=== PATIENT | male | born 1950 | race Caucasian/White ===

== ENCOUNTER 2019-04-04 21:44 | Emergency (ER) | payer BC, MEDICARE ==
--- NOTE | 2019-04-04 22:04 | ED ---
Syncope HPI - General Stated Complaint: Afib,syncope Time Seen by Provider: 04/04/19 21:48 - History of Present Illness Initial Comments: This patient is a 68-year-old man who presents to be evaluated after syncopal episode. The patient had been at a restaurant, approximately half hour ago. He states that he was feeling funny so he got up to use the bathroom and then noticed that he was very lightheaded. Patient's was walking with him and noticed that he was becoming unsteady, so she helped to ease him down against a wall. He did not have a fall or any trauma but he did pass out. He reportedly was unconscious for about 30 seconds. There was no noted seizure activity, though the patient did have urinary incontinence. The patient denies experiencing any palpitations, chest pain, dyspnea or diaphoresis. No nausea or vomiting. There was no postictal type period. MD Complaint: loss of consciousness, felt faint Onset/Timin -: minutes(s) Prodromal Symptoms: lightheaded Duration of Episode: 30 -: second(s) Witnessed: yes - by bystander Injuries Sustained Associated with Event: None Current Symptoms: back to baseline Context: standing up Treatments Prior to Arrival: none - Related Data Home Medications Medication Instructions Recorded Confirmed Aspirin 81 mg PO DAILY 02/10/14 02/25/14 Atorvastatin Calcium [Lipitor] 10 mg PO DAILY 02/10/14 02/25/14 Metoprolol Tartrate 25 mg PO BID 02/10/14 02/25/14 Pramipexole [Mirapex] 0.25 mg PO HS 02/10/14 02/25/14 traZODone HCL [Desyrel] 100 mg PO HS 02/10/14 02/25/14 Amoxicillin 875 mg PO Q12HR 02/25/14 02/25/14 Previous Rx's Medication Instructions Recorded HYDROcodone/APAP 7.5-325MG [[place] 1 - 2 each PO Q6HR PRN #60 tab 02/11/14 7.5] Allergies Allergy/AdvReac Type Severity Reaction Status Date / Time No Known Allergies Allergy Verified 04/04/19 22:06 Review of Systems ROS Statement: Those systems with pertinent positive or pertinent negative responses have been documented in the HPI. ROS Other: All systems not noted in ROS Statement are negative. Constitutional: Denies: fever, chills, weakness Eyes: Denies: vision change Respiratory: Denies: cough, dyspnea Cardiovascular: Reports: syncope. Denies: chest pain, palpitations, edema Gastrointestinal: Denies: abdominal pain, nausea, vomiting, diarrhea Genitourinary: Denies: dysuria, hematuria Musculoskeletal: Denies: back pain Skin: Denies: rash Neurological: Denies: headache, weakness, numbness Past Medical History Past Medical History: Atrial Fibrillation, Cancer, Hyperlipidemia, Hypertension Additional Past Medical History / Comment(s): arthritis, skin cancer, one episode of A-Fib, s/o reports seizure one other time about 10 years ago History of Any Multi-Drug Resistant Organisms: None Reported Past Surgical History: Orthopedic Surgery Additional Past Surgical History / Comment(s): vasectomy, removal of skin cancer from face,rotator cuff repair feb 11 Past Anesthesia/Blood Transfusion Reactions: No Reported Reaction Past Psychological History: No Psychological Hx Reported Smoking Status: Never smoker Past Alcohol Use History: None Reported Past Drug Use History: None Reported - Past Family History Father Family Medical History: Cancer Mother Family Medical History: Cancer General Exam General appearance: alert, in no apparent distress Head exam: Present: atraumatic, normocephalic Eye exam: Present: normal appearance. Absent: scleral icterus, conjunctival injection ENT exam: Present: normal oropharynx Neck exam: Present: normal inspection, full ROM Respiratory exam: Present: normal lung sounds bilaterally. Absent: respiratory distress, wheezes, rales, rhonchi, stridor Cardiovascular Exam: Present: regular rate, normal rhythm, normal heart sounds. Absent: systolic murmur, diastolic murmur, rubs, gallop GI/Abdominal exam: Present: soft. Absent: distended, tenderness, guarding, rebound, rigid, mass Extremities exam: Present: normal inspection, normal capillary refill. Absent: pedal edema, calf tenderness Back exam: Present: normal inspection. Absent: CVA tenderness (R), CVA tenderness (L) Neurological exam: Present: alert, oriented X3, CN II-XII intact. Absent: motor sensory deficit Skin exam: Present: warm, dry, intact, normal color. Absent: rash Course Vital Signs 04/04/19 04/04/19 04/04/19 22:00 22:02 22:15 Temperature 97.3 F L Pulse Rate 70 73 69 Respiratory 20 18 16 Rate Blood Pressure 87/52 87/52 88/59 O2 Sat by Pulse 95 93 L 95 Oximetry 04/04/19 04/04/19 04/04/19 22:30 22:45 23:00 Temperature Pulse Rate 63 63 62 Respiratory 16 16 14 Rate Blood Pressure 88/57 95/62 97/66 O2 Sat by Pulse 98 97 98 Oximetry 04/04/19 04/04/19 04/04/19 23:15 23:30 23:45 Temperature Pulse Rate 60 63 68 Respiratory 14 14 14 Rate Blood Pressure 106/69 106/71 111/70 O2 Sat by Pulse 98 97 98 Oximetry 04/05/19 04/05/19 00:00 00:15 Temperature Pulse Rate 65 69 Respiratory 16 16 Rate Blood Pressure 61/41 101/61 O2 Sat by Pulse 98 98 Oximetry EKG Findings - EKG Results: EKG: interpreted by JAYCEE, sinus rhythm (Rate 72 bpm), normal QRS, normal ST/T - Blocks, [place], Hypertrophy, ST Abn: QRS axis and voltage: left axis deviation (-30 to -90) Medical Decision Making - Medical Decision Making 's patient is a 68-year-old man presenting after having had a syncopal episode. He is in sinus rhythm on arrival. His workup is negative and the patient states that he is feeling well now. I did recommend admission for telemetry monitoring and cardiology consultation, the patient states that as he feels well and has no symptoms she would like to go home and follow-up as an outpatient. We discussed the appropriate follow-up as well as return parameters. - Lab Data Result diagrams: 04/04/19 22:05 04/04/19 22:05 Lab Results 04/04/19 04/04/19 04/04/19 Range/Units 22:05 22:05 22:05 WBC 4.7 (3.8-10.6) k/uL RBC 5.04 (4.30-5.90) m/uL Hgb 15.6 (13.0-17.5) gm/dL Hct 46.5 (39.0-53.0) % MCV 92.4 (80.0-100.0) fL MCH 30.9 (25.0-35.0) pg MCHC 33.5 (31.0-37.0) g/dL RDW 12.8 (11.5-15.5) % Plt Count 268 (150-450) k/uL Neutrophils % 58 % Lymphocytes % 28 % Monocytes % 5 % Eosinophils % 6 % Basophils % 1 % Neutrophils # 2.7 (1.3-7.7) k/uL Lymphocytes # 1.4 (1.0-4.8) k/uL Monocytes # 0.3 (0-1.0) k/uL Eosinophils # 0.3 (0-0.7) k/uL Basophils # 0.1 (0-0.2) k/uL PT 9.5 (9.0-12.0) sec INR 0.9 (<1.2) APTT 21.5 L (22.0-30.0) sec D-Dimer 1.20 H (<0.60) mg/L FEU Sodium 140 (137-145) mmol/L Potassium 5.1 (3.5-5.1) mmol/L Chloride 105 (98-107) mmol/L Carbon Dioxide 25 (22-30) mmol/L Anion Gap 10 mmol/L BUN 24 H (9-20) mg/dL Creatinine 1.22 (0.66-1.25) mg/dL Est GFR (CKD-EPI)AfAm 69 (>60 ml/min/1.73 sqM) Est GFR (CKD-EPI)NonAf 60 (>60 ml/min/1.73 sqM) Glucose 103 H (74-99) mg/dL Calcium 9.6 (8.4-10.2) mg/dL Total Bilirubin 0.7 (0.2-1.3) mg/dL AST 34 (17-59) U/L ALT 26 (4-49) U/L Alkaline Phosphatase 28 L (38-126) U/L Troponin I (0.000-0.034) ng/mL Total Protein 8.0 (6.3-8.2) g/dL Albumin 4.8 (3.5-5.0) g/dL 04/04/19 Range/Units 22:05 WBC (3.8-10.6) k/uL RBC (4.30-5.90) m/uL Hgb (13.0-17.5) gm/dL Hct (39.0-53.0) % MCV (80.0-100.0) fL MCH (25.0-35.0) pg MCHC (31.0-37.0) g/dL RDW (11.5-15.5) % Plt Count (150-450) k/uL Neutrophils % % Lymphocytes % % Monocytes % % Eosinophils % % Basophils % % Neutrophils # (1.3-7.7) k/uL Lymphocytes # (1.0-4.8) k/uL Monocytes # (0-1.0) k/uL Eosinophils # (0-0.7) k/uL Basophils # (0-0.2) k/uL PT (9.0-12.0) sec INR (<1.2) APTT (22.0-30.0) sec D-Dimer (<0.60) mg/L FEU Sodium (137-145) mmol/L Potassium (3.5-5.1) mmol/L Chloride (98-107) mmol/L Carbon Dioxide (22-30) mmol/L Anion Gap mmol/L BUN (9-20) mg/dL Creatinine (0.66-1.25) mg/dL Est GFR (CKD-EPI)AfAm (>60 ml/min/1.73 sqM) Est GFR (CKD-EPI)NonAf (>60 ml/min/1.73 sqM) Glucose (74-99) mg/dL Calcium (8.4-10.2) mg/dL Total Bilirubin (0.2-1.3) mg/dL AST (17-59) U/L ALT (4-49) U/L Alkaline Phosphatase (38-126) U/L Troponin I <0.012 (0.000-0.034) ng/mL Total Protein (6.3-8.2) g/dL Albumin (3.5-5.0) g/dL Disposition Clinical Impression: Syncope Disposition: HOME SELF-CARE Condition: Good Instructions (If sedation given, give patient instructions): Syncope (ED) Is patient prescribed a controlled substance at d/c from ED?: No Referrals: Orestes Nichols DO [Primary Care Provider] - 1-2 days
[2019-04-04 22:06] VITALS: TEMP 97.3
[2019-04-04 22:15] LABS: Basophils # (A) 0.1 k/uL (0-0.2); Basophils % (A) 1 %; Eosinophils # (A) 0.3 k/uL (0-0.7); Eosinophils % (A) 6 %; HCT 46.5 % (39.0-53.0); HGB 15.6 gm/dL (13.0-17.5); Lymphocytes # (A) 1.4 k/uL (1.0-4.8); Lymphocytes % (A) 28 %; MCH 30.9 pg (25.0-35.0); MCHC 33.5 g/dL (31.0-37.0); MCV 92.4 fL (80.0-100.0); Monocytes # (A) 0.3 k/uL (0-1.0); Monocytes % (A) 5 %; Neutrophils # (A) 2.7 k/uL (1.3-7.7); Neutrophils % (A) 58 %; Platelet Count 268 k/uL (150-450); RBC 5.04 m/uL (4.30-5.90); RDW 12.8 % (11.5-15.5); WBC 4.7 k/uL (3.8-10.6)
[2019-04-04 22:23] LABS: Albumin 4.8 g/dL (3.5-5.0); Calcium 9.6 mg/dL (8.4-10.2); Total Bilirubin 0.7 mg/dL (0.2-1.3)
--- NOTE | 2019-04-04 22:26 | XR ---
EXAMINATION TYPE: XR chest 2V DATE OF EXAM: 04/04/2019 COMPARISON: 05/22/2011 HISTORY: Atrial fibrillation. Syncope TECHNIQUE: 2 views FINDINGS: Heart is enlarged. There is no heart failure. There is some blunting of the left costophren ic angle. There are chest leads. IMPRESSION: Mild cardiomegaly. There is new pleural fluid or reaction compared to old exam. Heart mike ears increased compared to old exam.
[2019-04-04 22:28] LABS: Potassium 5.1 mmol/L (3.5-5.1)
[2019-04-04 22:48] LABS: INR 0.9 (<1.2); Prothrombin Time 9.5 sec (9.0-12.0)
[2019-04-04 22:51] LABS: D-Dimer 1.2 mg/L FEU (<0.60); Partial Thromboplastin Time 21.5 sec (22.0-30.0)
--- NOTE | 2019-04-05 00:13 | CT ---
EXAMINATION TYPE: CT chest angio for PE DATE OF EXAM: 04/05/2019 COMPARISON: None HISTORY: elevated d-dimer CT DLP: 693 mGycm Automated exposure control for dose reduction was used. CONTRAST: Performed with IV Contrast, patient injected with 70 mL of Isovue 370. Multiple axial sections were obtained from the thoracic inlet to the diaphragm with intravenous contr ast. There are 3-D post processed images. Mediastinum is within normal limits. Thoracic aorta is intact. There is no aneurysm or dissection. He art is enlarged. There is no pericardial effusion. The lungs are clear of consolidation. There is no pleural effusion. Thoracic spine is intact. There is no compression fracture. There is normal contrast opacification of the pulmonary arteries. There are no filling defects. IMPRESSION: Cardiomegaly. No pulmonary consolidation. No evidence of pulmonary embolism.
[2019-04-05 00:45] VITALS: BP 101/61; PULSE 69; RESP 16
== END 2019-04-05 00:46 | disposition home or self-care (01) ==
LOC: EC 21:44
DX: R55 Syncope and collapse (principal); E78.5 Hyperlipidemia, unspecified; I10 Essential (primary) hypertension; M19.90 Unspecified osteoarthritis, unspecified site; Z79.82 Long term (current) use of aspirin; Z79.899 Other long term (current) drug therapy; Z85.828 Personal history of other malignant neoplasm of skin; Z98.890 Other specified postprocedural states
CPT/HCPCS: 36415; 93005; 85379; 80053; 84484; 85025; 85610; 85730; 71046; 71275; 99284; Q9967

== ENCOUNTER → 2019-04-30 | Outpatient (CLI) | payer BC, MEDICARE ==
--- NOTE | 2019-04-30 13:53 | US ---
EXAMINATION TYPE: US carotid duplex BILAT DATE OF EXAM: 04/30/2019 COMPARISON: NONE CLINICAL HISTORY: R55 syncope and collapse. Pt states syncope with collapse EXAM MEASUREMENTS: RIGHT: Peak Systolic Velocity (PSV) cm/sec ----- Right CCA: 73.8 ----- Right ICA: 90.8 ----- Right ECA: 112.1 ICA/CCA ratio: 1.2 RIGHT: End Diastole cm/sec ----- Right CCA: 20.6 ----- Right ICA: 23.7 ----- Right ECA: 20.2 LEFT: Peak Systolic Velocity (PSV) cm/sec ----- Left CCA: 72.9 ----- Left ICA: 119.8 ----- Left ECA: 95.3 ICA/CCA ratio: 1.6 LEFT: End Diastole cm/sec ----- Left CCA: 18.8 ----- Left ICA: 26.7 ----- Left ECA: 18.9 VERTEBRALS (direction of flow): Right Vertebral: Antegrade Left Vertebral: Antegrade Rhythm: Normal No significant stenosis seen IMPRESSION: No sonographic evidence to suggest hemodynamically significant stenosis. Criteria for Assigning % of Stenosis / Diameter reduction (Estimation based on the indirect measurements of the internal carotid artery velocities (ICA PSV). 1. Normal (no stenosis)=ICA PSV < 125 cm/s: ratio < 2.0: ICA EDV<40 cm/s. 2. Less than 50% stenosis=ICA PSV < 125 cm/s: ratio < 2.0: ICA EDV<40 cm/s. 3. 50 to 69% stenosis=ICA PSV of 125 to 230 cm/s: ration 2.0 ? 4.0: ICA EDV 40-100 cm/s. 4. Greater than 70% stenosis to near occlusion= ICA PSV > 230 cm/s: ratio > 4.0: ICA EDV > 100 cm/s. 5. Near occlusion= ICA PSV velocities may be low or undetectable: variable ratio and ICA EDV. 6. Total occlusion=unable to detect flow.
== END | disposition home or self-care (01) ==
LOC: RADUSWWP 12:50
PROVIDERS: ATTEND Family Medicine
DX: R55 Syncope and collapse (principal)
CPT/HCPCS: 93880

== ENCOUNTER → 2019-04-30 | Outpatient (CLI) | payer BC, MEDICARE | END | disposition home or self-care (01) | LOC: NEUROMAIN 13:34 | PROVIDERS: ATTEND Family Medicine | DX: R55 Syncope and collapse (principal) | CPT/HCPCS: 95819 ==

== ENCOUNTER 2021-04-25 13:34 | Inpatient (IN) | payer BC, MEDICARE ==
[2021-04-25 15:02] LABS: Basophils % (A) 0 %; Eosinophils # (A) 0.1 k/uL (0-0.7); Eosinophils % (A) 0 %; HCT 44.5 % (39.0-53.0); HGB 14.9 gm/dL (13.0-17.5); Lymphocytes # (A) 1.1 k/uL (1.0-4.8); Lymphocytes % (A) 5 %; MCH 31.9 pg (25.0-35.0); MCHC 33.5 g/dL (31.0-37.0); MCV 95.2 fL (80.0-100.0); Mean Platelet Volume 6.9; Monocytes # (A) 0.3 k/uL (0-1.0); Monocytes % (A) 1 %; Neutrophils # (A) 19.4 k/uL (1.3-7.7); Neutrophils % (A) 93 %; Platelet Count 555 k/uL (150-450); RBC 4.67 m/uL (4.30-5.90); RDW 13.2 % (11.5-15.5); WBC 20.9 k/uL (3.8-10.6)
[2021-04-25 15:05] LABS: Albumin 3.7 g/dL (3.5-5.0); Calcium 9.8 mg/dL (8.4-10.2); Potassium 4.4 mmol/L (3.5-5.1); Total Bilirubin 1.2 mg/dL (0.2-1.3); Total Protein 6.7 g/dL (6.3-8.2)
[2021-04-25 15:08] LABS: Appearance,Urine Clear (Clear); Bilirubin,Urine Negative (Negative); Blood,Urine Negative (Negative); Color,Urine Yellow; Glucose,Urine (UA) Negative (Negative); Ketones,Urine 1+ (Negative); Leukocyte Esterase,Urine Negative (Negative); Nitrite,Urine Negative (Negative); PH, Urine 5.5 (5.0-8.0); Protein,Urine Trace (Negative); Specific Gravity,Urine 1.022 (1.001-1.035); Urobilinogen,Urine <2.0 mg/dL (<2.0)
[2021-04-25] MEDS ORDERED: HYDROmorphone 0.5 MG/0.5 ML SYRINGE IVP STA (15:55)
[2021-04-25] MEDS ORDERED: SODIUM CHLORIDE 0.9% 1,000 ML IV STA (15:55)
[2021-04-25] MEDS ORDERED: SODIUM CHLORIDE 0.9% 500 ML 500 ML IV STA (15:55)
--- NOTE | 2021-04-25 15:59 | ED ---
General Adult HPI - General Chief complaint: Abdominal Pain Stated complaint: Possible Appendicitis, Abdominal Pain Time Seen by Provider: 04/25/21 15:45 Source: patient, RN notes reviewed, old records reviewed Mode of arrival: wheelchair Limitations: no limitations - History of Present Illness Initial comments: Well-appearing 70-year-old male presents to the emergency room with complaints of right lower quadrant pain for one week. Patient states is progressively getting worse and sharp in nature. He denies any fevers, nausea or vomiting. He did have an episode of diarrhea last night. He denies hematemesis or hematochezia. He denies any previous abdominal surgeries -: week(s) (1) Location: abdomen (Right lower quadrant) Radiation: abdomen (Right upper quadrant) Severity scale (1-10): 8 Quality: sharp Consistency: constant Improves with: none Worsens with: other (palpation) Associated Symptoms: denies other symptoms Treatments Prior to Arrival: none - Related Data Home Medications Medication Instructions Recorded Confirmed Aspirin 81 mg PO DAILY 02/10/14 04/25/21 Metoprolol Tartrate 25 mg PO BID 02/10/14 04/25/21 Albuterol Inhaler [Ventolin Hfa 2 puff INHALATION RT-Q4H PRN 04/25/21 04/25/21 Inhaler] Alfuzosin HCl [Alfuzosin HCl ER] 10 mg PO HS 04/25/21 04/25/21 Lisinopril [Zestril] 10 mg PO DAILY 04/25/21 04/25/21 Methylphenidate HCl 36 mg PO DAILY 04/25/21 04/25/21 [Methylphenidate HCl ER] Multivitamins, Thera [Multivitamin 1 tab PO DAILY 04/25/21 04/25/21 (formulary)] Pramipexole [Mirapex] 1.5 mg PO HS@1900 04/25/21 04/25/21 Rosuvastatin Calcium [Crestor] 5 mg PO MOWEFR 04/25/21 04/25/21 Allergies Allergy/AdvReac Type Severity Reaction Status Date / Time No Known Allergies Allergy Verified 04/25/21 17:29 Review of Systems ROS Statement: Those systems with pertinent positive or pertinent negative responses have been documented in the HPI. ROS Other: All systems not noted in ROS Statement are negative. Past Medical History Past Medical History: Atrial Fibrillation, Cancer, Hyperlipidemia, Hypertension Additional Past Medical History / Comment(s): arthritis, skin cancer, one episode of A-Fib, s/o reports seizure one other time about 10 years ago History of Any Multi-Drug Resistant Organisms: None Reported Past Surgical History: Orthopedic Surgery Additional Past Surgical History / Comment(s): vasectomy, removal of skin cancer from face,rotator cuff repair dec 10th Past Anesthesia/Blood Transfusion Reactions: No Reported Reaction Past Psychological History: No Psychological Hx Reported Smoking Status: Never smoker Past Alcohol Use History: Rare Past Drug Use History: None Reported - Past Family History Father Family Medical History: Cancer Mother Family Medical History: Cancer General Exam Limitations: no limitations General appearance: alert, in no apparent distress Eye exam: Present: normal appearance Respiratory exam: Present: normal lung sounds bilaterally. Absent: respiratory distress, wheezes, rales, rhonchi, stridor Cardiovascular Exam: Present: tachycardia GI/Abdominal exam: Present: soft, distended, tenderness (Right right lower quadrant), rebound. Absent: guarding, rigid, mass Extremities exam: Present: full ROM, normal capillary refill, pedal edema (1+). Absent: tenderness, calf tenderness Neurological exam: Present: alert, oriented X3 Psychiatric exam: Present: normal affect, normal mood Skin exam: Present: warm, dry. Absent: cyanosis, diaphoretic, petechiae, pallor Course Vital Signs 04/25/21 04/25/21 13:58 16:21 Temperature 98.2 F 97.7 F Pulse Rate 110 H 96 Respiratory 20 14 Rate Blood Pressure 107/67 132/62 O2 Sat by Pulse 95 94 L Oximetry Medical Decision Making - Medical Decision Making 70-year-old male presents with right upper and lower quadrant abdominal pain for one week. The patient is afebrile with a white blood cell count of 20.9. CT abdomen and pelvis shows moderate inflammatory changes in the right lower quadrant involving the distal ileum and colon. There is a partially visualized appendix. There is no significant free fluid or pneumoperitoneum. This could be consistent with inflammatory bowel disease versus secondary appendicitis which cannot be excluded. Patient was started on antibiotics and blood cultures were drawn prior to initiation. Case discussed with Dr. Thapa, patient will be started on antibiotics and admitted. Patient was given pain medication in the emergency room and states is more comfortable. He is agreeable to this plan of care. My attending is Dr. Calhoun - Lab Data Result diagrams: 04/25/21 14:47 04/25/21 14:47 Lab Results 04/25/21 04/25/21 04/25/21 Range/Units 14:47 14:47 14:47 WBC 20.9 H (3.8-10.6) k/uL RBC 4.67 (4.30-5.90) m/uL Hgb 14.9 (13.0-17.5) gm/dL Hct 44.5 (39.0-53.0) % MCV 95.2 (80.0-100.0) fL MCH 31.9 (25.0-35.0) pg MCHC 33.5 (31.0-37.0) g/dL RDW 13.2 (11.5-15.5) % Plt Count 555 H (150-450) k/uL MPV 6.9 Neutrophils % 93 % Lymphocytes % 5 % Monocytes % 1 % Eosinophils % 0 % Basophils % 0 % Neutrophils # 19.4 H (1.3-7.7) k/uL Lymphocytes # 1.1 (1.0-4.8) k/uL Monocytes # 0.3 (0-1.0) k/uL Eosinophils # 0.1 (0-0.7) k/uL Basophils # 0.0 (0-0.2) k/uL Sodium 136 L (137-145) mmol/L Potassium 4.4 (3.5-5.1) mmol/L Chloride 102 (98-107) mmol/L Carbon Dioxide 23 (22-30) mmol/L Anion Gap 11 mmol/L BUN 20 (9-20) mg/dL Creatinine 1.10 (0.66-1.25) mg/dL Est GFR (CKD-EPI)AfAm 77 (>60 ml/min/1.73 sqM) Est GFR (CKD-EPI)NonAf 67 (>60 ml/min/1.73 sqM) Glucose 149 H (74-99) mg/dL Calcium 9.8 (8.4-10.2) mg/dL Total Bilirubin 1.2 (0.2-1.3) mg/dL AST 25 (17-59) U/L ALT 75 H (4-49) U/L Alkaline Phosphatase 96 (38-126) U/L Total Protein 6.7 (6.3-8.2) g/dL Albumin 3.7 (3.5-5.0) g/dL Amylase 51 (30-110) U/L Lipase 57 (23-300) U/L Urine Color Yellow Urine Appearance Clear (Clear) Urine pH 5.5 (5.0-8.0) Ur Specific [place] 1.022 (1.001-1.035) Urine Protein Trace H (Negative) Urine Glucose (UA) Negative (Negative) Urine Ketones 1+ H (Negative) Urine Blood Negative (Negative) Urine Nitrite Negative (Negative) Urine Bilirubin Negative (Negative) Urine Urobilinogen <2.0 (<2.0) mg/dL Ur Leukocyte Esterase Negative (Negative) Disposition Clinical Impression: Abdominal pain, Leukocytosis Disposition: ADMITTED IP TO THIS HOSP Condition: Good Referrals: Orestes Nichols DO [Primary Care Provider] - 1-2 days Decision Date: 04/25/21 Decision Time: 18:17
[2021-04-25] MEDS ORDERED: metroNIDAZOLE-NS PMX 500 MG in SALINE 1 100ML.BAG IVPB STA (16:56)
[2021-04-25] MEDS ORDERED: cefTRIAXone IN SWFI 1,000 MG/10 ML SYRINGE IVP STA (16:56)
--- NOTE | 2021-04-25 17:40 | CT ---
EXAMINATION TYPE: CT abdomen pelvis w con DATE OF EXAM: 04/25/2021 COMPARISON: None available HISTORY: Right lower quadrant pain. CT DLP: 1491.4 mGycm Automated exposure control for dose reduction was used. TECHNIQUE: Helical acquisition of images was performed from the lung bases through the pelvis. CONTRAST: Performed without Oral Contrast and with IV Contrast, patient injected with 100 mL of Isovue 300. FINDINGS: LUNG BASES: No significant abnormality is appreciated. LIVER/GB: No acute abnormality is appreciated. Hepatic steatosis. PANCREAS: No significant abnormality is seen. SPLEEN: No significant abnormality is seen. ADRENALS: No significant abnormality is seen. KIDNEYS: No significant abnormality is seen. FREE AIR: No free air is visualized. RETROPERITONEAL ADENOPATHY: None visualized REPRODUCTIVE ORGANS: No significant abnormality is seen URINARY BLADDER: No significant abnormality is seen. PELVIC ADENOPATHY: None visualized. OSSEOUS STRUCTURES: No significant abnormality is seen. BOWEL: Diffuse moderate fat stranding involving the distal ileum and ascending colon with associated wall thickening and mucosal enhancement. There is involvement of the appendix, which is partially vi sualized and measures approximately 5 to 6 mm in diameter. No free air or significant free fluid. Bor derline dilatation of the distal small bowel loops. No overt bowel obstruction. Small hiatal hernia. OTHER: None IMPRESSION: MODERATE INFLAMMATORY CHANGES IN THE RIGHT LOWER QUADRANT PREDOMINANTLY INVOLVING THE DISTAL ILEUM/co hussein. There is involvement of the partially visualized appendix, however appears to be secondary. No s ignificant free fluid or pneumoperitoneum. Considerations include inflammatory bowel disease with sec ondary appendicitis not excluded. Associated low-grade ileus. No overt bowel obstruction. Findings were discussed with caring ED physician by me at time of dictation.
[2021-04-25] MEDS ORDERED: ACETAMINOPHEN TAB 325 MG TAB PO PRN (17:53)
[2021-04-25] MEDS ORDERED: NALOXONE 0.4 MG/ML 1 ML VIAL IV PRN (17:53)
[2021-04-25] MEDS ORDERED: ALBUTEROL HFA INHALER INHALATION PRN (18:18)
[2021-04-25] MEDS ORDERED: ATORVASTATIN 10 MG TAB PO SCH (21:00)
[2021-04-25] MEDS: HYDROmorphone 1 MG/ML 1 ML SYRINGE IVP PRN (22:25)
[2021-04-25] MEDS: METOPROLOL TARTRATE 25 MG TAB PO SCH (23:26)
[2021-04-25] MEDS: PRAMIPEXOLE 1 MG TAB PO SCH (23:26)
[2021-04-25] MEDS: TAMSULOSIN 0.4 MG CAP.ER.24H PO SCH (23:27)
[2021-04-26] MEDS: HYDROmorphone 1 MG/ML 1 ML SYRINGE IVP PRN ×6 (02:44→23:35)
[2021-04-26 09:23] LABS: African American GFR (CKD) 77.3 (60.0-200.0); Anion Gap 12.7 mmol/L (10.00-18.00); Blood Urea Nitrogen 15.4 mg/dL (9.0-27.0); C Reactive Protein 29.8 mg/dL (0.00-0.80); Calcium 9.4 mg/dL (8.7-10.3); Carbon Dioxide 22.3 mmol/L (20.0-27.5); Magnesium 2.3 mg/dL (1.5-2.4); Non-African American GFR(CKD) 66.7 (60.0-200.0); Potassium 4.5 mmol/L (3.5-5.5)
--- NOTE | 2021-04-26 09:34 | P.HPIM ---
History of Present Illness This is a pleasant 70 years old male with past medical history of Atrial Fibrillation, Hyperlipidemia, Hypertension Presents because of abdominal pain. Patient described the pain in his right lower quadrant for about 2 weeks, nonradiating about 8/10 in severity felt like sharp and agrees by movement No associated diarrhea, his last bowel movement was 2 days ago, no vomiting. Denies chest pain or dyspnea. No urgency or dysuria in his urine. No headache or dizziness. No weakness or numbness. He denies smoking or illicit drugs and drinks alcohol occasionally. He is following up with Dr. Mg for A. fib and he's only on aspirin at home, no anticoagulation because he was told only to take aspirin Vitas looks stable. Patient is afebrile Showing leukocytosis 20.9, rest of CBC is unremarkable, BMP also unremarkable, glucose is slightly elevated 149 Liver enzymes not elevated as well Urinalysis is not suspicious of infection Coronavirus not detected Elevated ESR at 67 and CRP at 24 CT of the abdomen and pelvis showing moderate inflammation in the right lower quadrant predominantly involving the distal ileum/colon. Associated low-grade ileus but no overt bowel obstruction Review of Systems Review of systems CONSTITUTIONAL: No fever, no malaise, no fatigue. HEENT: No recent visual problems or hearing problems. Denied any sore throat. CARDIOVASCULAR: No orthopnea, PND, no palpitations, no syncope. PULMONARY: No shortness of breath, no cough, no hemoptysis. GASTROINTESTINAL: No diarrhea, no nausea,. Normoactive bowel sounds. NEUROLOGICAL: No headaches, no weakness, no numbness. HEMATOLOGICAL: Denies any bleeding or petechiae. GENITOURINARY: Denies any burning micturition, frequency, or urgency. MUSCULOSKELETAL/RHEUMATOLOGICAL: Denies any joint pain, swelling, or any muscle pain. ENDOCRINE: Denies any polyuria or polydipsia. Past Medical History Past Medical History: Atrial Fibrillation, Cancer, Hyperlipidemia, Hypertension Additional Past Medical History / Comment(s): arthritis, skin cancer, one episode of A-Fib, s/o reports seizure one other time about 10 years ago History of Any Multi-Drug Resistant Organisms: None Reported Past Surgical History: Orthopedic Surgery Additional Past Surgical History / Comment(s): vasectomy, removal of skin cancer from face,rotator cuff repair dec Past Anesthesia/Blood Transfusion Reactions: No Reported Reaction Past Psychological History: No Psychological Hx Reported Smoking Status: Never smoker Past Alcohol Use History: Rare Past Drug Use History: None Reported - Past Family History Father Family Medical History: Cancer Mother Family Medical History: Cancer Medications and Allergies Home Medications Medication Instructions Recorded Confirmed Type Aspirin 81 mg PO DAILY 02/10/14 04/25/21 History Metoprolol Tartrate 25 mg PO BID 02/10/14 04/25/21 History Albuterol Inhaler [Ventolin Hfa 2 puff INHALATION RT-Q4H PRN 04/25/21 04/25/21 History Inhaler] Alfuzosin HCl [Alfuzosin HCl ER] 10 mg PO HS 04/25/21 04/25/21 History Lisinopril [Zestril] 10 mg PO DAILY 04/25/21 04/25/21 History Methylphenidate HCl 36 mg PO DAILY 04/25/21 04/25/21 History [Methylphenidate HCl ER] Multivitamins, Thera [Multivitamin 1 tab PO DAILY 04/25/21 04/25/21 History (formulary)] Pramipexole [Mirapex] 1.5 mg PO HS@1900 04/25/21 04/25/21 History Rosuvastatin Calcium [Crestor] 5 mg PO MOWEFR 04/25/21 04/25/21 History Allergies Allergy/AdvReac Type Severity Reaction Status Date / Time No Known Allergies Allergy Verified 04/25/21 17:29 Physical Exam Vitals: Vital Signs Temp Pulse Pulse Resp BP BP Pulse Ox 04/26/21 07:35 98.3 F 102 H 16 113/56 94 L 04/26/21 06:01 96 18 132/79 93 L 04/25/21 22:25 77 16 133/71 97 04/25/21 19:00 93 16 126/70 94 L 04/25/21 16:21 97.7 F 96 14 132/62 94 L 04/25/21 13:58 98.2 F 110 H 20 107/67 95 GENERAL: The patient is alert and oriented x3, not in any acute distress. Well developed, well nourished. HEENT: Pupils are round and equally reacting to light. EOMI. No scleral icterus. No conjunctival pallor. Normocephalic, atraumatic. No pharyngeal erythema. No thyromegaly. CARDIOVASCULAR: S1 and S2 present. No murmurs, rubs, or gallops. PULMONARY: Chest is clear to auscultation, no wheezing or crackles. -ABDOMEN: Soft, RLQ tenderness, nondistended, normoactive bowel sounds. No palpable organomegaly. MUSCULOSKELETAL: No joint swelling or deformity. EXTREMITIES: No cyanosis, clubbing, or pedal edema. NEUROLOGICAL: Gross neurological examination did not reveal any focal deficits. SKIN: No rashes. no petechiae. Results CBC & Chem 7: 04/25/21 14:47 04/26/21 06:23 Labs: Abnormal Lab Results - Last 24 Hours (Table) 04/25/21 04/25/21 04/25/21 Range/Units 14:47 14:47 14:47 WBC 20.9 H (3.8-10.6) k/uL Plt Count 555 H (150-450) k/uL Neutrophils # 19.4 H (1.3-7.7) k/uL ESR (0-15) mm/hr Sodium 136 L (137-145) mmol/L Glucose 149 H (74-99) mg/dL ALT 75 H (4-49) U/L C-Reactive Protein (<1.0) mg/dL Procalcitonin (0.02-0.09) ng/mL Urine Protein Trace H (Negative) Urine Ketones 1+ H (Negative) 04/25/21 04/25/21 04/26/21 Range/Units 19:34 19:38 06:23 WBC (3.8-10.6) k/uL Plt Count (150-450) k/uL Neutrophils # (1.3-7.7) k/uL ESR 67 H (0-15) mm/hr Sodium (137-145) mmol/L Glucose (74-99) mg/dL ALT (4-49) U/L C-Reactive Protein 24.0 H (<1.0) mg/dL Procalcitonin 2.54 H (0.02-0.09) ng/mL Urine Protein (Negative) Urine Ketones (Negative) 04/26/21 Range/Units 06:23 WBC (3.8-10.6) k/uL Plt Count (150-450) k/uL Neutrophils # (1.3-7.7) k/uL ESR (0-15) mm/hr Sodium (137-145) mmol/L Glucose 133 H (74-99) mg/dL ALT (4-49) U/L C-Reactive Protein 29.80 H (<1.0) mg/dL Procalcitonin (0.02-0.09) ng/mL Urine Protein (Negative) Urine Ketones (Negative) Assessment and Plan Assessment: Ileitis with proximal ascending colitis, rule out inflammatory bowel disease versus others Elevated inflammatory markers Hypertension Hyperlipidemia paroxysmal atrial fibrillation, not on anticoagulation Plan: This is a pleasant 70 years old male who presents with ileitis/colitis with elevated ESR/CRP Patient was started on antibiotic Continue with IV fluids and bowel rest Surgery team already consulted We are going to consult GI team Labs and medication were reviewed.. Continue same treatment. Continue with symptomatic treatment. Resume home medication. Monitor lytes and vitals. DVT and GI prophylaxis. Further recommendations as per clinical course of the patient DVT prophylaxis: Subcutaneous heparin GI Prophylaxis: Pepcid Prognosis is guarded
[2021-04-26] MEDS: METOPROLOL TARTRATE 25 MG TAB PO SCH ×2 (10:08→21:19)
[2021-04-26] MEDS: lisinopriL 10 MG TAB PO SCH (10:08)
[2021-04-26] MEDS: LEVOFLOXACIN 500MG-D5W PMX 500 MG in DEXTROSE/WATER 1 100ML.BAG IVPB SCH (12:27)
[2021-04-26] MEDS: SODIUM CHLORIDE 0.9% 1,000 ML IV SCH (12:27)
--- NOTE | 2021-04-26 13:11 | P.GSCN ---
<Alice Sanches - Last Filed: 04/26/21 12:55> History of Present Illness Consult date: 04/26/21 History of present illness: CHIEF COMPLAINT: Abdominal pain HISTORY OF PRESENT ILLNESS: This is a 70-year-old male who presented to the emergency room with complaints of right lower quadrant abdominal pain for the last 1-2 weeks. He denies any nausea or vomiting. Denies any fever. He reports his last vomiting was about 2 days ago which is normal for him. He denies any flatus. He denies any blood in his stools. Patient denies any prior abdominal surgical history. He had a computed tomography scan that demonstrated moderate inflammatory changes in the right lower quadrant predominantly involving the distal ileum/colon. There is involvement of the partially visualized appendix. No significant free fluid or pneumoperitoneum. Considerations include inflammatory bowel disease with secondary appendicitis not excluded. Surgical service consult in regards to the right lower quadrant abdominal pain. Patient also had elevated white count of 20 and mildly tachycardic. He is currently on antibiotics. Patient denies being on any blood thinners. PAST MEDICAL HISTORY: Atrophic fibrillation, mild cardiomegaly, enlarged prostate hypertension, hyperlipidemia PAST SURGICAL HISTORY: Vasectomy MEDICATIONS: See list. ALLERGIES: See list. SOCIAL HISTORY: No illicit drug use. REVIEW OF SYSTEMS: CONSTITUTIONAL: Denies fever or chills. HEENT: Denies blurred vision, vision changes, or eye pain. Denies hemoptysis ENDOCRINE: Denies heat or cold intolerance. CARDIOVASCULAR: Denies chest pain or pressure. RESPIRATORY: No shortness of breath. GASTROINTESTINAL: Please refer to HPI NEURO: Denies history of seizures. PSYCH: No depression or suicidal ideation HEMATOLOGIC: Denies bleeding disorders. LYMPHATIC: The patient denies any lumps and bumps around the neck. GENITOURINARY: Denies any blood in urine or increased urinary frequency. MUSCULOSKELETAL: Denies myalgias. Denies joint swelling. Denies decreased range of motion beyond patients baseline. SKIN: Denies pruitis. Denies rash. PHYSICAL EXAM: VITAL SIGNS: Reviewed GENERAL: Well-developed in no acute distress. HEENT: No sclera icterus. Extraocular movements grossly intact. Moist buccal mucosa. Head is atraumatic, normocephalic. Hears conversational speech. No nasal drainage. NECK: Supple without lymphadenopathy. CHEST: Non-labored respirations and equal bilateral excursions. CARDIOVASCULAR: Palpable 2+ radial pulses. ABDOMEN: Distended and tense. Diffuse pain with palpation. But more tender in the right lower quadrant MUSCULOSKELETAL: No clubbing or cyanosis. NEUROLOGIC: No focal or lateralizing signs. Cranial nerves II through XII grossly intact. PSYCH: Appropriate affect. Alert and oriented to person, place and time. SKIN: Well perfused. Good skin turgor. LABORATORY DATA: WBC 20.9 hemoglobin 14.9 platelets 555 Sed rate 67 Sodium 138 potassium 4.5 and creatinine 1.1 Glucose 133 A1c 5.9 Lactic 1.2 AST 25 ALT 75 lipase 57 Procalcitonin 2.54 COVID-19 not detected Urinalysis no evidence of infection IMAGING: Computed tomography scan abdomen and pelvis demonstrated moderate inflammatory changes in the right lower quadrant predominantly involving the distal ileum/colon. There is involvement of the partially visualized appendix. No significant free fluid or pneumoperitoneum. Considerations include inflammatory bowel disease with secondary appendicitis not excluded. Associated low-grade ileus. No overt bowel obstruction. ASSESSMENT: 1. Right lower quadrant Abdominal pain with abdominal distention 2. Inflammatory changes in the right lower quadrant involving the ileum. Considerations include inflammatory bowel disease with secondary appendicitis not excluded noted on computed tomography scan 3. Leukocytosis 4. Hypertension 5. Hyperlipidemia PLAN: -Abdominal x-ray ordered for further evaluation of abdominal distention and abdominal pain. Rule out perforation -Keep patient nothing by mouth except for ice chips -Continue antibiotics -Continue IV fluids -Add Toradol for pain -Further recommendations forthcoming per surgeon Thank you for this consultation Physician Engineer So[employer] note has been reviewed by physician. Signing provider agrees with the documented findings, assessment, and plan of care. Past Medical History Past Medical History: Atrial Fibrillation, Cancer, Hyperlipidemia, Hypertension Additional Past Medical History / Comment(s): arthritis, skin cancer, one episode of A-Fib, History of Any Multi-Drug Resistant Organisms: None Reported Past Surgical History: Orthopedic Surgery Additional Past Surgical History / Comment(s): vasectomy, removal of skin cancer from face,rotator cuff repair feb 11 Past Anesthesia/Blood Transfusion Reactions: No Reported Reaction Past Psychological History: No Psychological Hx Reported Smoking Status: Never smoker Past Alcohol Use History: Rare Past Drug Use History: None Reported - Past Family History Father Family Medical History: Cancer Mother Family Medical History: Cancer Medications and Allergies Home Medications Medication Instructions Recorded Confirmed Type Aspirin 81 mg PO DAILY 02/10/14 04/25/21 History Metoprolol Tartrate 25 mg PO BID 02/10/14 04/25/21 History Albuterol Inhaler [Ventolin Hfa 2 puff INHALATION RT-Q4H PRN 04/25/21 04/25/21 History Inhaler] Alfuzosin HCl [Alfuzosin HCl ER] 10 mg PO HS 04/25/21 04/25/21 History Lisinopril [Zestril] 10 mg PO DAILY 04/25/21 04/25/21 History Methylphenidate HCl 36 mg PO DAILY 04/25/21 04/25/21 History [Methylphenidate HCl ER] Multivitamins, Thera [Multivitamin 1 tab PO DAILY 04/25/21 04/25/21 History (formulary)] Pramipexole [Mirapex] 1.5 mg PO HS@1900 04/25/21 04/25/21 History Rosuvastatin Calcium [Crestor] 5 mg PO MOWEFR 04/25/21 04/25/21 History Allergies Allergy/AdvReac Type Severity Reaction Status Date / Time No Known Allergies Allergy Verified 04/25/21 17:29 Surgical - Exam Vital Signs Temp Pulse Resp BP Pulse Ox 98.2 F 110 H 20 107/67 95 04/25/21 13:58 04/25/21 13:58 04/25/21 13:58 04/25/21 13:58 04/25/21 13:58 Results - Labs 04/25/21 14:47 04/26/21 06:23 Abnormal Lab Results - Last 24 Hours (Table) 04/25/21 04/25/21 04/25/21 Range/Units 14:47 14:47 14:47 WBC 20.9 H (3.8-10.6) k/uL Plt Count 555 H (150-450) k/uL Neutrophils # 19.4 H (1.3-7.7) k/uL ESR (0-15) mm/hr Sodium 136 L (137-145) mmol/L Glucose 149 H (74-99) mg/dL ALT 75 H (4-49) U/L C-Reactive Protein (<1.0) mg/dL Procalcitonin (0.02-0.09) ng/mL Urine Protein Trace H (Negative) Urine Ketones 1+ H (Negative) 04/25/21 04/25/21 04/26/21 Range/Units 19:34 19:38 06:23 WBC (3.8-10.6) k/uL Plt Count (150-450) k/uL Neutrophils # (1.3-7.7) k/uL ESR 67 H (0-15) mm/hr Sodium (137-145) mmol/L Glucose (74-99) mg/dL ALT (4-49) U/L C-Reactive Protein 24.0 H (<1.0) mg/dL Procalcitonin 2.54 H (0.02-0.09) ng/mL Urine Protein (Negative) Urine Ketones (Negative) 04/26/21 Range/Units 06:23 WBC (3.8-10.6) k/uL Plt Count (150-450) k/uL Neutrophils # (1.3-7.7) k/uL ESR (0-15) mm/hr Sodium (137-145) mmol/L Glucose 133 H (74-99) mg/dL ALT (4-49) U/L C-Reactive Protein 29.80 H (<1.0) mg/dL Procalcitonin (0.02-0.09) ng/mL Urine Protein (Negative) Urine Ketones (Negative) Diabetes panel 04/25/21 04/26/21 04/26/21 Range/Units 14:47 06:23 06:23 Sodium 136 L 138 (137-145) mmol/L Potassium 4.4 4.5 (3.5-5.1) mmol/L Chloride 102 103 (98-107) mmol/L Carbon Dioxide 23 22.3 (22-30) mmol/L BUN 20 15.4 (9-20) mg/dL Creatinine 1.10 1.1 (0.66-1.25) mg/dL Glucose 149 H 133 H (74-99) mg/dL Hemoglobin A1c 5.9 (0.0-6.0) % Calcium 9.8 9.4 (8.4-10.2) mg/dL AST 25 (17-59) U/L ALT 75 H (4-49) U/L Alkaline Phosphatase 96 (38-126) U/L Total Protein 6.7 (6.3-8.2) g/dL Albumin 3.7 (3.5-5.0) g/dL Calcium panel 04/25/21 04/26/21 Range/Units 14:47 06:23 Calcium 9.8 9.4 (8.4-10.2) mg/dL Albumin 3.7 (3.5-5.0) g/dL Pituitary panel 04/25/21 04/26/21 Range/Units 14:47 06:23 Sodium 136 L 138 (137-145) mmol/L Potassium 4.4 4.5 (3.5-5.1) mmol/L Chloride 102 103 (98-107) mmol/L Carbon Dioxide 23 22.3 (22-30) mmol/L BUN 20 15.4 (9-20) mg/dL Creatinine 1.10 1.1 (0.66-1.25) mg/dL Glucose 149 H 133 H (74-99) mg/dL Calcium 9.8 9.4 (8.4-10.2) mg/dL Adrenal panel 04/25/21 04/26/21 Range/Units 14:47 06:23 Sodium 136 L 138 (137-145) mmol/L Potassium 4.4 4.5 (3.5-5.1) mmol/L Chloride 102 103 (98-107) mmol/L Carbon Dioxide 23 22.3 (22-30) mmol/L BUN 20 15.4 (9-20) mg/dL Creatinine 1.10 1.1 (0.66-1.25) mg/dL Glucose 149 H 133 H (74-99) mg/dL Calcium 9.8 9.4 (8.4-10.2) mg/dL Total Bilirubin 1.2 (0.2-1.3) mg/dL AST 25 (17-59) U/L ALT 75 H (4-49) U/L Alkaline Phosphatase 96 (38-126) U/L Total Protein 6.7 (6.3-8.2) g/dL Albumin 3.7 (3.5-5.0) g/dL <Rose Loving N - Last Filed: 04/27/21 05:25> History of Present Illness History of present illness: REASON FOR CONSULTATION: Abdominal pain HISTORY OF PRESENT ILLNESS: The patient is a 70 year old male who presents to the emergency room with over a 2 week history of abdominal pain. Family is at bedside providing additional history. Report that he had coronavirus infection almost 3-4 weeks ago and his condition continued to decline with increased abdominal pain particularly of the right lower quadrant. No prior abdominal surgeries. Patient had generalized malaise. No reports of fevers or chills or blood in stools. Denies any personal history of Crohn's disease or inflammatory bowel disease. No recent colonoscopy in the past year. Patient reported abdominal pain was moderate to severe however has improved after placement of a nasogastric tube. PAST MEDICAL HISTORY: See list and reviewed PAST SURGICAL HISTORY: See list and reviewed MEDICATIONS: See list and reviewed ALLERGIES: See list and reviewed SOCIAL HISTORY: See list and reviewed FAMILY HISTORY: See list and reviewed REVIEW OF ORGAN SYSTEMS: CONSTITUTIONAL: No fevers or chills. Obesity, BMI 31.7 EYES: Denies any trouble with vision. No glasses. HEENT: No difficulties with hearing. No nosebleeds. No difficulty swallowing. RESPIRATORY: Recent coronavirus infection. Has asthma. CARDIOVASCULAR: Prior history of atrial fibrillation. Has hypertensive heart disease. Has hyperlipidemia. GASTROINTESTINAL: Denies fatty food intolerance. Denies change in bowel habits and gas bloat. GENITOURINARY: History of urinary retention. NEUROLOGICAL: Denies any numbness or tingling along the distal extremities. No seizure disorders or headaches. Has restless leg syndrome. MUSCULOSKELETAL: Has back pain, stiffness or joint arthritis. SKIN: No current skin cancer. No rash. PSYCHIATRIC: Denies current depression or suicidal thoughts. ENDOCRINE: Denies current thyroid disorders. Denies any blood sugar glucose intolerance. HEME/LYMPHATIC: Denies any lumps and bumps around the neck. No recent deep venous thrombosis. ALLERGY/IMMUNOLOGY: No immunoglobulin therapy. No immune deficiencies. BREAST: Denies current breast lumps, pain or nipple discharge. PHYSICAL EXAM: VITALS: Reviewed CONSTITUTIONAL: Well developed and in no acute distress. EYES: Conjuctivae without sclera icterus. Extraocular movements grossly intact. HEAD, EARS, NOSE, THROAT: Moist buccal mucosa. Head is atraumatic, normocephalic. Hears conversational speech. No nasal drainage. NG tube present bilious. NECK: Supple. No JV distention. No thyroidomegaly. RESPIRATORY: Non-labored respirations and equal bilateral excursions. No gross wheezes. CARDIOVASCULAR: Extremities without moderate edema. 2+ radial pulses. ABDOMEN: Protuberant, mild to moderate distention. No diffuse peritonitis. Tender right lower quadrant. LYMPH: No gross neck lymphadenopathy. MUSCULOSKELETAL: Nail and fingers with good capillary refill. SKIN: Warm and well perfused with good skin turgor. NEUROLOGIC: Cranial nerves II through XII grossly intact. Sensation upper and extremities intact. No focal or lateralizing signs. PSYCH: Appropriate affect. Alert and oriented to person, place and time. Displays appropriate insight. CLINCAL LABS: Reviewed. WBC elevated over 20. Hemoglobin 14.9. IMAGING: Independently reviewed CT of the abdomen and pelvis demonstrating moderate edema of the distal small bowel, ileum including proximal ascending colon. No free air identified. This is my independent interpretation. RADIOLOGY: Report reviewed demonstrating moderate inflammatory changes right lower quadrant involving distal ileum/colon with considerations inflammatory bowel disease. Abdominal x-ray report demonstrating worsening bowel obstruction. ASSESSMENT: 1. Abnormal computed tomography scan for inflammation ileitis, colitis 2. Abdominal pain 3. Inflammatory bowel disease, cannot be excluded 4. Bowel obstruction. PLAN: 1. Continue nasogastric tube for decompression. Patient reports improvement since NG tube placement. 2. May have ice chips in the interim however nothing by mouth. 3. GI consultation for inflammatory bowel disease versus empiric treatment with steroids. 4. IV antibiotics in the interim. 5. IV fluid boluses given for acute dehydration 6. Repeat CBC in 24 hours 7. Care plan reviewed with family with conservative management described ADVANCE DIRECTIVE: Thank you for this kind consultation. Surgical - Exam Vital Signs Temp Pulse Resp BP Pulse Ox 98.2 F 110 H 20 107/67 95 04/25/21 13:58 04/25/21 13:58 04/25/21 13:58 04/25/21 13:58 04/25/21 13:58 Results - Labs 04/25/21 14:47 04/26/21 06:23 Abnormal Lab Results - Last 24 Hours (Table) 04/26/21 04/26/21 Range/Units 06:23 06:23 Glucose 133 H (70-110) mg/dL C-Reactive Protein 29.80 H (0.00-0.80) mg/dL Procalcitonin 2.54 H (0.02-0.09) ng/mL Microbiology - Last 24 Hours (Table) 04/25/21 16:30 Blood Culture - Preliminary Blood No Growth after 24 hours 04/25/21 16:50 Blood Culture - Preliminary Blood No Growth after 24 hours Diabetes panel 04/26/21 04/26/21 Range/Units 06:23 06:23 Sodium 138 (135-145) mmol/L Potassium 4.5 (3.5-5.5) mmol/L Chloride 103 (96-109) mmol/L Carbon Dioxide 22.3 (20.0-27.5) mmol/L BUN 15.4 (9.0-27.0) mg/dL Creatinine 1.1 (0.6-1.5) mg/dL Glucose 133 H (70-110) mg/dL Hemoglobin A1c 5.9 (0.0-6.0) % Calcium 9.4 (8.7-10.3) mg/dL Calcium panel 04/26/21 Range/Units 06:23 Calcium 9.4 (8.7-10.3) mg/dL Pituitary panel 04/26/21 Range/Units 06:23 Sodium 138 (135-145) mmol/L Potassium 4.5 (3.5-5.5) mmol/L Chloride 103 (96-109) mmol/L Carbon Dioxide 22.3 (20.0-27.5) mmol/L BUN 15.4 (9.0-27.0) mg/dL Creatinine 1.1 (0.6-1.5) mg/dL Glucose 133 H (70-110) mg/dL Calcium 9.4 (8.7-10.3) mg/dL Adrenal panel 04/26/21 Range/Units 06:23 Sodium 138 (135-145) mmol/L Potassium 4.5 (3.5-5.5) mmol/L Chloride 103 (96-109) mmol/L Carbon Dioxide 22.3 (20.0-27.5) mmol/L BUN 15.4 (9.0-27.0) mg/dL Creatinine 1.1 (0.6-1.5) mg/dL Glucose 133 H (70-110) mg/dL Calcium 9.4 (8.7-10.3) mg/dL
--- NOTE | 2021-04-26 13:42 | P.CONS ---
History of Present Illness - Reason for Consult Consult date: 04/26/21 Ileitis Requesting physician: Shiva Bragg - Chief Complaint Abdominal pain - History of Present Illness This is 70-year-old male with a past medical history of atrial fibrillation, cancer, hyperlipidemia and hypertension who presented to the emergency department with complaints of abdominal pain that has progressively been getting worse over the last 2 weeks duration. states pain has been in the right lower quadrant beginning about 2 weeks ago. He denies any associated nausea, vomiting or diarrhea. He denies any fevers or chills. He was recently diagnose d with: Head infection in the beginning of April. He had a CT of the abdomen and pelvis showed moderate inflammatory changes in the right lower quadrant predominantly involving the distal ileum and colon. He was also noted to have elevated WBC on admission of 20.9, ESR 67 and CRP 24. He denied any recent fevers or chills and has been afebrile. He denies any bloody bowel movements, states his abdomen is distended, pain is mildly improved. Last bowel movement 2-3 days ago. States his normal pattern is every 2-3 days. Last colonoscopy approximately 5 years ago which she believes was normal other than colon polyps. Review of Systems REVIEW OF SYSTEMS: CARDIOPULMONARY: No chest pain or shortness of breath. Gastrointestinal: Abdominal pain and bloating. Pain greatest in the right lower and mid quadrant. No nausea or vomiting. No hematemesis, coffee-ground emesis. No rectal bleeding, or melena. No diarrhea. GENITOURINARY: No dysuria or hematuria. MUSCULOSKELETAL: Reports normal range of motion., Joint pain. SKIN: No rashes. No jaundice. ENDOCRINE: No chills, fevers. No excessive weight gain or loss. No polydipsia or polyuria. PSYCHIATRIC: Unremarkable. NEUROLOGY: No change in mental status. Denies dizziness, headache. ENT: Vision unremarkable. CONSTITUTIONAL: No recent weight loss. No fever, chills, night sweats. Past Medical History Past Medical History: Atrial Fibrillation, Cancer, Hyperlipidemia, Hypertension Additional Past Medical History / Comment(s): arthritis, skin cancer, one episode of A-Fib, History of Any Multi-Drug Resistant Organisms: None Reported Past Surgical History: Orthopedic Surgery Additional Past Surgical History / Comment(s): vasectomy, removal of skin cancer from face,rotator cuff repair feb 11 Past Anesthesia/Blood Transfusion Reactions: No Reported Reaction Past Psychological History: No Psychological Hx Reported Smoking Status: Never smoker Past Alcohol Use History: Rare Past Drug Use History: None Reported - Past Family History Father Family Medical History: Cancer Mother Family Medical History: Cancer Medications and Allergies Home Medications Medication Instructions Recorded Confirmed Type Aspirin 81 mg PO DAILY 02/10/14 04/25/21 History Metoprolol Tartrate 25 mg PO BID 02/10/14 04/25/21 History Albuterol Inhaler [Ventolin Hfa 2 puff INHALATION RT-Q4H PRN 04/25/21 04/25/21 History Inhaler] Alfuzosin HCl [Alfuzosin HCl ER] 10 mg PO HS 04/25/21 04/25/21 History Lisinopril [Zestril] 10 mg PO DAILY 04/25/21 04/25/21 History Methylphenidate HCl 36 mg PO DAILY 04/25/21 04/25/21 History [Methylphenidate HCl ER] Multivitamins, Thera [Multivitamin 1 tab PO DAILY 04/25/21 04/25/21 History (formulary)] Pramipexole [Mirapex] 1.5 mg PO HS@1900 04/25/21 04/25/21 History Rosuvastatin Calcium [Crestor] 5 mg PO MOWEFR 04/25/21 04/25/21 History Allergies Allergy/AdvReac Type Severity Reaction Status Date / Time No Known Allergies Allergy Verified 04/25/21 17:29 Physical Exam Vitals: Vital Signs Temp Pulse Pulse Resp BP BP Pulse Ox 04/26/21 10:07 107 H 137/82 04/26/21 07:35 98.3 F 102 H 16 113/56 94 L 04/26/21 06:01 96 18 132/79 93 L 04/25/21 22:25 77 16 133/71 97 04/25/21 19:00 93 16 126/70 94 L 04/25/21 16:21 97.7 F 96 14 132/62 94 L 04/25/21 13:58 98.2 F 110 H 20 107/67 95 Intake and Output 04/25/21 04/26/21 04/26/21 22:59 06:59 14:59 Other: Weight 97.522 kg General appearance: The patient is alert, oriented, appears in no acute distr ess. HET: Head is normocephalic and atraumatic. Conjunctiva pink. Sclera anicteric. Neck: Supple without lymphadenopathy. Trachea midline. Heart: S1 S2. Regular rate and rhythm. Lungs: Clear to auscultation. Abdomen: Soft, right lower quadrant tenderness, abdominal distention. No guarding or rigidity. Skin: No rashes. No jaundice. Extremities: Normal skin color and turgor. No pedal edema. Neurological: No focal deficits. Alert and oriented x3. Results CBC & Chem 7: 04/25/21 14:47 04/26/21 06:23 Labs: Abnormal Lab Results - Last 24 Hours (Table) 04/25/21 04/25/21 04/25/21 Range/Units 14:47 14:47 14:47 WBC 20.9 H (3.8-10.6) k/uL Plt Count 555 H (150-450) k/uL Neutrophils # 19.4 H (1.3-7.7) k/uL ESR (0-15) mm/hr Sodium 136 L (137-145) mmol/L Glucose 149 H (74-99) mg/dL ALT 75 H (4-49) U/L C-Reactive Protein (<1.0) mg/dL Procalcitonin (0.02-0.09) ng/mL Urine Protein Trace H (Negative) Urine Ketones 1+ H (Negative) 04/25/21 04/25/21 04/26/21 Range/Units 19:34 19:38 06:23 WBC (3.8-10.6) k/uL Plt Count (150-450) k/uL Neutrophils # (1.3-7.7) k/uL ESR 67 H (0-15) mm/hr Sodium (137-145) mmol/L Glucose (74-99) mg/dL ALT (4-49) U/L C-Reactive Protein 24.0 H (<1.0) mg/dL Procalcitonin 2.54 H (0.02-0.09) ng/mL Urine Protein (Negative) Urine Ketones (Negative) 04/26/21 Range/Units 06:23 WBC (3.8-10.6) k/uL Plt Count (150-450) k/uL Neutrophils # (1.3-7.7) k/uL ESR (0-15) mm/hr Sodium (137-145) mmol/L Glucose 133 H (74-99) mg/dL ALT (4-49) U/L C-Reactive Protein 29.80 H (<1.0) mg/dL Procalcitonin (0.02-0.09) ng/mL Urine Protein (Negative) Urine Ketones (Negative) CT scan - abdomen: report reviewed (Moderate inflammatory changes in the right lower quadrant predominantly involving the distal ileum/colon. There is involvement of the partially visualized appendix however appears to be secondary. No significant free fluid or pneumoperitoneum. Considerations include inflammatory bowel disease wit) Assessment and Plan (1) Abdominal pain Narrative/Plan: A 70-year-old female who presented to the emergency department with complaints of abdominal pain which started approximately 2 weeks ago. Predominantly in the right lower quadrant and not associated with any nausea, vomiting, diarrhea or fever. States his last bowel movement was 2-3 days ago. Denies any previous history of Crohn's disease or colitis. His colonoscopy approximately 5 years ago which he states was overall normal other than colon polyp. He was positive for COVID-19 infection earlier this month. Negative at this time. He had a CT of the abdomen showing moderate inflammatory changes in the right lower quadrant distal ileum/colon. Appendicitis cannot be ruled out. He did have elevated inflammatory markers as well as evidence of leukocytosis. He's been afebrile. Likely infectious etiology however ischemic cannot be ruled out. Will start patient on IV antibiotics. Await recommendations from general surgery. No plans on colonoscopy at this time. Current Visit: Yes Status: Acute Code(s): R10.9 - UNSPECIFIED ABDOMINAL PAIN SNOMED Code(s): 10679369 (2) Leukocytosis Current Visit: Yes Status: Acute Code(s): D72.829 - ELEVATED WHITE BLOOD CELL COUNT, UNSPECIFIED SNOMED Code(s): 997195674 (3) Ileus Current Visit: Yes Status: Acute Code(s): K56.7 - ILEUS, UNSPECIFIED SNOMED Code(s): 784440421 Plan: 1. Continue symptomatic and supportive care 2. Keep nothing by mouth for now 3. Flagyl and Levaquin started 4. Repeat CBC 5. Protonix for GI prophylaxis 6. Await recommendations from general surgery 7. No plans on colonoscopy at this time, will do as needed based on clinical course Thank you for this consultation, we will continue to monitor. Dr. Kaylin Mg I agree with the dictator's note, documented as a scribe by Meghan Villafuerte.
--- NOTE | 2021-04-26 14:08 | XR ---
EXAMINATION TYPE: XR abdomen 2V DATE OF EXAM: 04/26/2021 CLINICAL DATA: 70-year-old male with abdominal pain and distention, [facility] COMPARISON: CT 04/25/2021 FINDINGS: Prominent patchy bibasilar opacities. No evidence for free intraperitoneal air. Diffusely dilated small bowel loops with air-fluid levels throughout. Small bowel dilatation out to 6 .1 cm versus 3.6 cm on 04/25/2021 CT. No significant colonic air seen. Possibility of bowel gas in the right lower quadrant. IMPRESSION: 1. Interval worsening with small bowel loops now dilated up to 6.1 cm versus 3.6 cm yesterday. No col onic air. Paucity of air in the right lower quadrant. Consider right lower quadrant inflammatory proc ess as seen on CT but with a secondary mechanical small bowel obstruction. 2. Patchy bibasilar opacities, probably prominent areas of atelectasis.
[2021-04-26] MEDS: metroNIDAZOLE-NS PMX 500 MG in SALINE 1 100ML.BAG IVPB SCH (16:14)
[2021-04-26] MEDS: KETOROLAC 30 MG/ML 1 ML VIAL IVP SCH ×2 (16:20→17:58)
[2021-04-26] MEDS ORDERED: SODIUM CHLORIDE 0.9% 1,000 ML IV ONE (17:16)
[2021-04-26] MEDS: PRAMIPEXOLE 1 MG TAB PO SCH (19:18)
[2021-04-26] MEDS: TAMSULOSIN 0.4 MG CAP.ER.24H PO SCH (21:19)
[2021-04-27] MEDS: KETOROLAC 30 MG/ML 1 ML VIAL IVP SCH ×5 (01:10→23:32)
[2021-04-27] MEDS: metroNIDAZOLE-NS PMX 500 MG in SALINE 1 100ML.BAG IVPB SCH ×4 (01:11→23:32)
[2021-04-27] MEDS: SODIUM CHLORIDE 0.9% 1,000 ML IV SCH ×3 (01:11→20:43)
[2021-04-27] MEDS: HYDROmorphone 1 MG/ML 1 ML SYRINGE IVP PRN ×3 (03:37→14:37)
[2021-04-27] MEDS: lisinopriL 10 MG TAB PO SCH (07:35)
[2021-04-27] MEDS: METOPROLOL TARTRATE 25 MG TAB PO SCH ×2 (07:36→21:16)
[2021-04-27] MEDS: PANTOPRAZOLE 40 MG/10 ML VIAL IVP SCH (07:37)
[2021-04-27 09:25] LABS: Basophils # (A) 0.01 X 10*3/uL (0.00-0.10); Basophils % (A) 0.1 %; Eosinophils # (A) 0.06 X 10*3/uL (0.04-0.35); Eosinophils % (A) 0.4 %; HCT 38.6 % (39.6-50.0); HGB 12.2 g/dL (13.0-17.0); Immature Grans, Automated 0.7 %; Lymphocytes # (A) 0.86 X 10*3/uL (0.90-5.00); Lymphocytes % (A) 6.3 %; MCH 30.7 pg (27.0-32.0); MCHC 31.6 g/dL (32.0-37.0); Mean Platelet Volume 9.5 fL (9.5-12.2); Monocytes # (A) 0.41 X 10*3/uL (0.20-1.00); NRBC Per 100 WBC 0 /100 WBCS (0.0-0.0); Neutrophils # (A) 12.14 X 10*3/uL (1.80-7.70); Neutrophils % (A) 89.5 %; Platelet Count 502 X 10*3/uL (140-440); RBC 3.98 X 10*6/uL (4.40-5.60); RDW 13.2 % (11.5-14.5); WBC 13.58 X 10*3/uL (4.50-10.00)
[2021-04-27 09:46] LABS: African American GFR (CKD) 69.6 (60.0-200.0); BUN/Creat Ratio 18.75 Ratio (12.00-20.00); Blood Urea Nitrogen 22.5 mg/dL (9.0-27.0); Calcium 9.2 mg/dL (8.7-10.3); Non-African American GFR(CKD) 60.1 (60.0-200.0); Potassium 4.4 mmol/L (3.5-5.5)
[2021-04-27] MEDS: LEVOFLOXACIN 500MG-D5W PMX 500 MG in DEXTROSE/WATER 1 100ML.BAG IVPB SCH (12:13)
--- NOTE | 2021-04-27 14:04 | P.PN ---
<SeverianoAlice saba - Last Filed: 04/27/21 13:58> Subjective Progress Note Date: 04/27/21 CHIEF COMPLAINT: Abdominal pain HISTORY OF PRESENT ILLNESS: Patient reports improvement in abdominal pain. Abdomen is still distended and slightly softer. Denies any nausea or vomiting. His NG tube came out over the night. Denies any flatus or bowel movement. Patient had abdominal x-ray completed and reviewed with Dr. Pinedo. Results still showed evidence of bowel obstruction. She is recommending NG tube to be reinserted. Afebrile. WBC is 13.58 down from 20.9 hemoglobin is 12.2 plates 502 PHYSICAL EXAM: VITAL SIGNS: Reviewed GENERAL: Well-developed in no acute distress. HEENT: No sclera icterus. Extraocular movements grossly intact. Moist buccal mucosa. Head is atraumatic, normocephalic. Hears conversational speech. No nasal drainage. NECK: Supple without lymphadenopathy. CHEST: Non-labored respirations and equal bilateral excursions. CARDIOVASCULAR: Palpable 2+ radial pulses. ABDOMEN: Distended but decreased from yesterday. Tenderness with palpation of the right lower quadrant MUSCULOSKELETAL: No clubbing or cyanosis. NEUROLOGIC: No focal or lateralizing signs. Cranial nerves II through XII grossly intact. PSYCH: Appropriate affect. Alert and oriented to person, place and time. SKIN: Well perfused. Good skin turgor. ASSESSMENT: 1. Abnormal computed tomography scan for inflammation ileitis, colitis 2. Abdominal pain 3. Inflammatory bowel disease, cannot be excluded 4. Bowel obstruction. PLAN: -Reinsert NG tube -Continue NG tube for decompression -Keep patient nothing by mouth except for ice chips -Continue IV fluids -Continue pain medication as needed -Continue antibiotics -Continue supportive care -Continue conservative management Physician Site Worker note has been reviewed by physician. Signing provider agrees with the documented findings, assessment, and plan of care. Objective - Vital Signs Vital signs: Vital Signs Temp 98.2 F 04/27/21 11:30 Pulse 87 04/27/21 11:30 Resp 16 04/27/21 11:30 BP 127/69 04/27/21 11:30 Pulse Ox 95 04/27/21 11:30 Intake & Output 04/26/21 04/27/21 04/27/21 18:59 06:59 18:59 Intake Total 375 1000 Balance 375 1000 Weight 97.522 kg Intake: Intake, IV Titration 375 1000 Amount Sodium Chloride 0.9% 1, 375 900 000 ml @ 75 mls/hr IV . [id number] HUSAM Rx#:[id number] metroNIDAZOLE-NS PMX 500 100 mg In Saline 1 100ml.bag @ 100 mls/hr IVPB Q8HR HUSAM Rx#:[id number] Other: Voiding Method Toilet Urinal # Voids 2 1 - Labs CBC & Chem 7: 04/27/21 05:59 04/27/21 05:59 Labs: Abnormal Lab Results - Last 24 Hours (Table) 04/27/21 Range/Units 05:59 WBC 13.58 H (4.50-10.00) X 10*3/uL RBC 3.98 L (4.40-5.60) X 10*6/uL Hgb 12.2 L (13.0-17.0) g/dL Hct 38.6 L (39.6-50.0) % MCHC 31.6 L (32.0-37.0) g/dL Plt Count 502 H (140-440) X 10*3/uL Immature Gran # 0.10 H (0.00-0.04) X 10*3/uL Neutrophils # 12.14 H (1.80-7.70) X 10*3/uL Lymphocytes # 0.86 L (0.90-5.00) X 10*3/uL Microbiology - Last 24 Hours (Table) 04/25/21 16:30 Blood Culture - Preliminary Blood No Growth after 24 hours 04/25/21 16:50 Blood Culture - Preliminary Blood No Growth after 24 hours <Rose Loving N - Last Filed: 04/28/21 15:19> Subjective CHIEF COMPLAINT: Abdominal pain HISTORY OF PRESENT ILLNESS: The patient is a 70 year old male admitted due to bowel obstruction including right lower quadrant abdominal pain with ileitis and ascending colitis. Earlier NG tube had to be reinserted. Patient still with some abdominal distention. Abdominal pain has been improving. No reports of nausea and vomiting. Family is at bedside. REVIEW OF ORGAN SYSTEMS: No fevers or chills. No chest pain. PHYSICAL EXAM: VITALS: Reviewed CONSTITUTIONAL: Well developed and in no acute distress. EYES: Conjuctivae without sclera icterus. Extraocular movements grossly intact. HEAD, EARS, NOSE, THROAT: Moist buccal mucosa. Head is atraumatic, no rmocephalic. Hears conversational speech. No nasal drainage. NG tube present bilious. RESPIRATORY: Non-labored respirations and equal bilateral excursions. No gross wheezes. CARDIOVASCULAR: 2+ radial pulses. ABDOMEN: Mild tenderness lower abdomen. No peritonitis. MUSCULOSKELETAL: No clubbing cyanosis or edema SKIN: Warm and well perfused with good skin turgor. NEUROLOGIC: Cranial nerves II through XII grossly intact. No focal or lateralizing signs. PSYCH: Appropriate affect. Alert and oriented to person, place and time. Displays appropriate insight. CLINCAL LABS: Reviewed. WBC elevated over 20,000 and trending downward over 13,000 IMAGING: Abdominal x-ray independently reviewed still demonstrating bowel obstruction with dilated small loops of bowel. This is my independent int erpretation. ASSESSMENT: 1. Abnormal computed tomography scan for inflammation ileitis, colitis 2. Abdominal pain 3. Inflammatory bowel disease, cannot be excluded 4. Bowel obstruction. PLAN: 1. Continue nasogastric tube pending passage of flatus and/or bowel movements. 2. Continue IV antibiotics Objective - Vital Signs Vital signs: Vital Signs Temp 97.9 F 04/28/21 07:00 Pulse 71 04/28/21 07:00 Resp 16 04/28/21 07:00 BP 156/80 04/28/21 07:00 Pulse Ox 97 04/28/21 07:00 Intake & Output 04/27/21 04/28/21 04/28/21 18:59 06:59 18:59 Intake Total 800 Output Total 300 Balance 800 -300 Intake: Intake, IV Titration 800 Amount Levofloxacin 500Mg-D5w 100 Pmx 500 mg In Dextrose/ Water 1 100ml.bag @ 100 mls/hr IVPB Q24H HUSAM Rx#: [id number] Sodium Chloride 0.9% 1, 600 000 ml @ 75 mls/hr IV . [id number] HUSAM Rx#:[id number] metroNIDAZOLE-NS PMX 500 100 mg In Saline 1 100ml.bag @ 100 mls/hr IVPB Q8HR [facility]AM Rx#:[id number] Output: Gastric Drainage 200 Urine 100 Other: Voiding Method Toilet Toilet Urinal Urinal # Voids 3 - Labs CBC & Chem 7: 04/28/21 08:21 04/27/21 05:59 Labs: Abnormal Lab Results - Last 24 Hours (Table) 04/28/21 Range/Units 08:21 RBC 3.88 L (4.30-5.90) m/uL Hgb 12.0 L (13.0-17.5) gm/dL Hct 38.8 L (39.0-53.0) % MCV 100.2 H D (80.0-100.0) fL MCHC 30.9 L (31.0-37.0) g/dL Plt Count 523 H (150-450) k/uL Neutrophils # 8.6 H (1.3-7.7) k/uL Lymphocytes # 0.8 L (1.0-4.8) k/uL Microbiology - Last 24 Hours (Table) 04/25/21 16:30 Blood Culture - Preliminary Blood No Growth after 48 hours 04/25/21 16:50 Blood Culture - Preliminary Blood No Growth after 48 hours Assessment and Plan (1) Ileitis Current Visit: Yes Status: Acute Code(s): K52.9 - NONINFECTIVE GASTROENTERITIS AND COLITIS, UNSPECIFIED SNOMED Code(s): 61320306 (2) Colitis Current Visit: Yes Status: Acute Code(s): K52.9 - NONINFECTIVE GASTROENTERITIS AND COLITIS, UNSPECIFIED SNOMED Code(s): 86832739 (3) Small bowel obstruction Current Visit: Yes Status: Acute Code(s): K56.609 - UNSP INTESTNL OBST, UNSP TO PARTIAL VERSUS COMPLETE OBST SNOMED Code(s): 417723937
--- NOTE | 2021-04-27 15:03 | P.PN ---
Subjective Progress Note Date: 04/27/21 Principal diagnosis: Abdominal pain Patient is seen as follow-up. Yesterday he underwent x-ray of the abdomen that showed a mechanical small bowel obstruction. NG tube was placed however he pulled it out in the middle of the night. States abdominal pain has improved mildly as well as abdominal distention. He denies any flatus or bowel movements. He denies any nausea or vomiting. He has been tolerating ice chips. Objective - Vital Signs Vital signs: Vital Signs Temp 97.8 F 04/27/21 03:39 Pulse 84 04/27/21 03:39 Resp 16 04/27/21 03:39 BP 103/64 04/27/21 03:39 Pulse Ox 94 L 04/27/21 03:39 Intake & Output 04/26/21 04/27/21 04/27/21 18:59 06:59 18:59 Intake Total 375 1000 Balance 375 1000 Weight 97.522 kg Intake: Intake, IV Titration 375 1000 Amount Sodium Chloride 0.9% 1, 375 900 000 ml @ 75 mls/hr IV . [id number] HUSAM Rx#:[id number] metroNIDAZOLE-NS PMX 500 100 mg In Saline 1 100ml.bag @ 100 mls/hr IVPB Q8HR HUSAM Rx#:[id number] Other: Voiding Method Toilet Urinal # Voids 2 1 - Exam General appearance: The patient is alert, oriented, appears in no acute distress. HET: Head is normocephalic and atraumatic. Conjunctiva pink. Sclera anicteric. Neck: Supple without lymphadenopathy. Abdomen: Soft, tenderness in the right mid and lower quadrant, mildly distended with hypoactive bowel sounds. No guarding or rigidity. Extremities: Normal skin color and turgor. No pedal edema Skin: No rashes, no jaundice Neurological: No focal deficits. Alert and oriented x3. - Labs CBC & Chem 7: 04/27/21 05:59 04/27/21 05:59 Labs: Abnormal Lab Results - Last 24 Hours (Table) 04/26/21 04/26/21 Range/Units 06:23 06:23 Glucose 133 H (70-110) mg/dL C-Reactive Protein 29.80 H (0.00-0.80) mg/dL Procalcitonin 2.54 H (0.02-0.09) ng/mL Microbiology - Last 24 Hours (Table) 04/25/21 16:30 Blood Culture - Preliminary Blood No Growth after 24 hours 04/25/21 16:50 Blood Culture - Preliminary Blood No Growth after 24 hours Assessment and Plan (1) Abdominal pain Narrative/Plan: A 70-year-old female who presented to the emergency department with complaints of abdominal pain which started approximately 2 weeks ago. Predominantly in the right lower quadrant and not associated with any nausea, vomiting, diarrhea or fever. States his last bowel movement was 2-3 days ago. Denies any previous history of Crohn's disease or colitis. His colonoscopy approximately 5 years ago which he states was overall normal other than colon polyp. He was positive for COVID-19 infection earlier this month. Negative at this time. He had a CT of the abdomen showing moderate inflammatory changes in the right lower quadrant distal ileum/colon. Appendicitis cannot be ruled out. He did have elevated inflammatory markers as well as evidence of leukocytosis. He's been afebrile. Likely infectious etiology however ischemic cannot be ruled out. Will start pat ient on IV antibiotics. Await recommendations from general surgery. No plans on colonoscopy at this time. Current Visit: Yes Status: Acute Code(s): R10.9 - UNSPECIFIED ABDOMINAL PAIN SNOMED Code(s): 51078714 (2) Leukocytosis Current Visit: Yes Status: Acute Code(s): D72.829 - ELEVATED WHITE BLOOD CELL COUNT, UNSPECIFIED SNOMED Code(s): 696063371 (3) Small bowel obstruction Narrative/Plan: Gen. surgery following closely, NG tube placed Current Visit: Yes Status: Acute Code(s): K56.609 - UNSP INTESTNL OBST, UNSP TO PARTIAL VERSUS COMPLETE OBST SNOMED Code(s): 163996908 Plan: 1. Continue symptomatic and supportive care 2. Keep nothing by mouth except ice chips 3. Flagyl and Levaquin started 4. Repeat CBC 5. Protonix for GI prophylaxis 6. Await recommendations from general surgery 7. No plans on colonoscopy at this time, will do as needed based on clinical course Thank you for this consultation, we will continue to monitor. Dr. Kaylin Mg I agree with the dictator's note, documented as a scribe by Meghan Villafuerte.
--- NOTE | 2021-04-27 15:29 | XR ---
EXAMINATION TYPE: XR abdomen 2V DATE OF EXAM: 04/27/2021 COMPARISON: 04/26/2021 INDICATION: Abdomen pain TECHNIQUE: Single view abdomen upright view. Additional supine views were obtained FINDINGS: There are dilated small bowel loops within the left upper and mid abdomen. Greatest transverse dimens ion is 7.2 cm. This is similar in comparison. Scattered differential air-fluid levels are present. Sm all amount of colonic bowel gas is present. No mass effect is evident. Psoas margins are normal. No organomegaly is present. IMPRESSION: 1. Dilated small bowel loops with air-fluid levels. Findings are suggestive for high-grade partial sm all bowel obstruction
[2021-04-27] MEDS: ACETAMINOPHEN IV (For NPO) 1,000 MG in EMPTY BAG 1 BAG IVPB SCH (20:43)
[2021-04-27] MEDS: TAMSULOSIN 0.4 MG CAP.ER.24H PO SCH (21:16)
[2021-04-27] MEDS: PRAMIPEXOLE 1 MG TAB PO SCH (21:17)
--- NOTE | 2021-04-27 21:18 | XR ---
EXAMINATION TYPE: XR chest 1V portable DATE OF EXAM: 04/27/2021 COMPARISON: 04/04/2019 HISTORY: 2 placement TECHNIQUE: Single frontal view of the chest is obtained. FINDINGS: There is demonstration of an NG tube with tip overlying the gastric fundus. There is mild right basilar opacity with probable trace pleural effusion. No pneumothorax seen. The cardiac silhou ette size is within normal limits. The osseous structures are intact. IMPRESSION: As above.
--- NOTE | 2021-04-27 21:19 | P.PN ---
Progress Note - Text Progress Note Date: 04/27/21 Hospital course: Patient admitted with abdominal pain. Found to mechanical small bowel obstruct ion. NG tube was placed Pepe the patient pointed out in the middle of the night. April 27: Patient denies chest. Abdomen distended. Abdominal pain present. Last bowel movement was 4 days ago. No nausea vomiting. X-ray showing increasing dilatations of bowel. Patient was later seen by general surgery mancini and reinsertion of NG tube. No BM. No flatus. On IV Levaquin and Flagyl. Active Medications Albuterol Sulfate (Albuterol Hfa Inhaler) 2 puff INHALATION RT-Q4H PRN PRN Reason: Shortness Of Breath Hydromorphone HCl (Hydromorphone 1 Mg/Ml 1 Ml Syringe) 1 mg IVP Q3HR PRN PRN Reason: Moderate to Severe Pain Metronidazole 500 mg/ IV (Solution) 100 mls @ 100 mls/hr IVPB Q8HR [facility] Last Admin: 04/27/21 16:20 Dose: 100 mls/hr Documented by: Levofloxacin 500 mg/ IV (Solution) 100 mls @ 100 mls/hr IVPB Q24H [facility] Last Admin: 04/27/21 12:13 Dose: 100 mls/hr Documented by: Acetaminophen 1,000 mg/ IV (Solution) 100 mls @ 400 mls/hr IVPB Q6H [facility] Stop: 04/28/21 14:14 Last Admin: 04/27/21 20:43 Dose: 400 mls/hr Documented by: Sodium Chloride (Saline 0.9%) 1,000 mls @ 130 mls/hr IV .Q7H42M [facility] Last Admin: 04/27/21 20:43 Dose: 130 mls/hr Documented by: Ketorolac Tromethamine (Ketorolac 30 Mg/Ml 1 Ml Vial) 15 mg IVP Q6HR [facility] Stop: 04/29/21 12:20 Last Admin: 04/27/21 17:37 Dose: 15 mg Documented by: Lisinopril (Lisinopril 10 Mg Tab) 10 mg PO DAILY [facility] Last Admin: 04/27/21 07:35 Dose: 10 mg Documented by: Metoprolol Tartrate (Metoprolol Tartrate 25 Mg Tab) 25 mg PO BID [facility] Last Admin: 04/27/21 07:36 Dose: 25 mg Documented by: Naloxone HCl (Naloxone 0.4 Mg/Ml 1 Ml Vial) 0.2 mg IV Q2M PRN PRN Reason: Opioid Reversal Ondansetron HCl (Ondansetron 4 Mg/2 Ml Vial) 4 mg IVP Q8HR PRN PRN Reason: Nausea And Vomiting Pantoprazole Sodium (Pantoprazole 40 Mg/10 Ml Vial) 40 mg IVP DAILY [facility] Last Admin: 04/27/21 07:37 Dose: 40 mg Documented by: Pramipexole Dihydrochloride (Pramipexole 1 Mg Tab) 1.5 mg PO HS@1900 [facility] Last Admin: 04/26/21 19:18 Dose: 1.5 mg Documented by: Tamsulosin HCl (Tamsulosin 0.4 Mg Cap.Er.24h) 0.4 mg PO [facility] Last Admin: 04/26/21 21:19 Dose: 0.4 mg Documented by: On examination: VITAL SIGNS: [98.7, 85, 17, 128/70, 94% room air] GENERAL APPEARANCE: BMI 31.7, not in distress HEENT: Normal external appearance of nose and ear. Oral cavity normal EYES: Pupils equal. Conjunctiva normal. NECK: JVD not raised. Mass not palpable. RESPIRATORY: Respiratory effort normal. Lungs clear to auscultation. CARDIOVASCULAR: First and second sounds normal. No edema. ABDOMEN: Distended, tender hyperactive bowel sounds Liver and spleen not palpable. No tenderness. No mass palpable. PSYCHIATRY: Alert and oriented x3. Mood and affect normal. INVESTIGATIONS, reviewed in the clinical context: White count 13.5 hemoglobin 12.2 platelets 502 potassium 4.4 creatinine 1.2 CRP 29.8 procalcitonin 2.5 for Abdominal x-ray film personally reviewed by me dilated loops of bowel Computed tomography scan of the abdomen pelvis: Moderate inflammatory changes the right lower quadrant stopped and currently involving the distal ileum colon. Assessment and plan: -Acute distal ileitis: Slow to respond IV Levaquin, IV Flagyl -Acute small bowel obstruction: Not improving NG tube to be reinserted today -Atrial fibrillation -Hyperlipidemia Crestor 5 mg by mouth Sunday -Essential hypertension Lisinopril 10 mg a day -Osteoarthritis, primary -Restless leg syndrome Mirapex 1.5 mg by mouth daily at bedtime -BPH Flomax 0.4 mg daily at bedtime Continue with antibiotics including Levaquin and Flagyl, NG tube to be reinserted. IV fluids. Discussed with patient.
[2021-04-28] MEDS: ACETAMINOPHEN IV (For NPO) 1,000 MG in EMPTY BAG 1 BAG IVPB SCH ×3 (02:51→17:34)
[2021-04-28] MEDS: SODIUM CHLORIDE 0.9% 1,000 ML IV SCH ×3 (05:20→20:06)
[2021-04-28] MEDS: KETOROLAC 30 MG/ML 1 ML VIAL IVP SCH ×3 (05:36→20:01)
[2021-04-28] MEDS: METOPROLOL TARTRATE 25 MG TAB PO SCH ×2 (07:51→20:01)
[2021-04-28] MEDS: lisinopriL 10 MG TAB PO SCH (07:51)
[2021-04-28] MEDS: PANTOPRAZOLE 40 MG/10 ML VIAL IVP SCH (07:52)
[2021-04-28] MEDS: metroNIDAZOLE-NS PMX 500 MG in SALINE 1 100ML.BAG IVPB SCH ×2 (07:52→17:47)
[2021-04-28 08:49] LABS: Basophils % (A) 0 %; Eosinophils # (A) 0.2 k/uL (0-0.7); Eosinophils % (A) 2 %; HCT 38.8 % (39.0-53.0); Lymphocytes # (A) 0.8 k/uL (1.0-4.8); Lymphocytes % (A) 8 %; MCH 30.9 pg (25.0-35.0); MCHC 30.9 g/dL (31.0-37.0); Mean Platelet Volume 7.4; Monocytes # (A) 0.3 k/uL (0-1.0); Monocytes % (A) 3 %; Neutrophils # (A) 8.6 k/uL (1.3-7.7); Neutrophils % (A) 87 %; Platelet Count 523 k/uL (150-450); RBC 3.88 m/uL (4.30-5.90); RDW 12.9 % (11.5-15.5); WBC 9.9 k/uL (3.8-10.6)
[2021-04-28 09:07] LABS: MCV 100.2 fL (80.0-100.0)
--- NOTE | 2021-04-28 09:38 | P.PN ---
Subjective Progress Note Date: 04/28/21 Principal diagnosis: Abdominal pain Patient is seen as follow-up. Yesterday he underwent x-ray of the abdomen that showed a mechanical small bowel obstruction. NG tube was placed and approximately 300ml out. He just underwent another abdominal x-ray which is pending. Gen. surgery is following. Abdominal pain significantly improved. Denies any nausea or vomiting. Had bowel movement today, soft. Objective - Vital Signs Vital signs: Vital Signs Temp 97.9 F 04/28/21 07:00 Pulse 71 04/28/21 07:00 Resp 16 04/28/21 07:00 BP 156/80 04/28/21 07:00 Pulse Ox 97 04/28/21 07:00 Intake & Output 04/27/21 04/28/21 04/28/21 18:59 06:59 18:59 Intake Total 800 Output Total 300 Balance 800 -300 Intake: Intake, IV Titration 800 Amount Levofloxacin 500Mg-D5w 100 Pmx 500 mg In Dextrose/ Water 1 100ml.bag @ 100 mls/hr IVPB Q24H [facility] Rx#: [id number] Sodium Chloride 0.9% 1, 600 000 ml @ 75 mls/hr IV . [id number] [facility] Rx#:[id number] metroNIDAZOLE-NS PMX 500 100 mg In Saline 1 100ml.bag @ 100 mls/hr IVPB Q8HR [facility] Rx#:[id number] Output: Gastric Drainage 200 Urine 100 Other: Voiding Method Toilet Toilet Urinal Urinal # Voids 3 - Exam General appearance: The patient is alert, oriented, appears in no acute distress. HET: Head is normocephalic and atraumatic. Conjunctiva pink. Sclera anicteric. Neck: Supple without lymphadenopathy. Abdomen: Soft, very mild tenderness to palpation in right lower abdomen, nondistended. No guarding or rigidity. Extremities: Normal skin color and turgor. No pedal edema Skin: No rashes, no jaundice Neurological: No focal deficits. Alert and oriented x3. - Labs CBC & Chem 7: 04/28/21 08:21 04/27/21 05:59 Labs: Abnormal Lab Results - Last 24 Hours (Table) 04/28/21 Range/Units 08:21 RBC 3.88 L (4.30-5.90) m/uL Hgb 12.0 L (13.0-17.5) gm/dL Hct 38.8 L (39.0-53.0) % MCV 100.2 H D (80.0-100.0) fL MCHC 30.9 L (31.0-37.0) g/dL Plt Count 523 H (150-450) k/uL Neutrophils # 8.6 H (1.3-7.7) k/uL Lymphocytes # 0.8 L (1.0-4.8) k/uL Microbiology - Last 24 Hours (Table) 04/25/21 16:30 Blood Culture - Preliminary Blood No Growth after 48 hours 04/25/21 16:50 Blood Culture - Preliminary Blood No Growth after 48 hours Assessment and Plan (1) Abdominal pain Narrative/Plan: A 70-year-old female who presented to the emergency department with complaints of abdominal pain which started approximately 2 weeks ago. Predominantly in the right lower quadrant and not associated with any nausea, vomiting, diarrhea or fever. States his last bowel movement was 2-3 days ago. Denies any previous history of Crohn's disease or colitis. His colonoscopy approximately 5 years ago which he states was overall normal other than colon polyp. He was positive for COVID-19 infection earlier this month. Negative at this time. He had a CT of the abdomen showing moderate inflammatory changes in the right lower quadrant distal ileum/colon. Appendicitis cannot be ruled out. He did have elevated inflammatory markers as well as evidence of leukocytosis. He's been afebrile. Likely infectious etiology however ischemic cannot be ruled out. Will start pa merna on IV antibiotics. Await recommendations from general surgery. No plans on colonoscopy at this time. SIGNIFICANTLY IMPROVED. PATIENT HAD A BOWEL MOVEMENT TODAY. GEN. SURGERY IS FOLLOWING VERY CLOSELY. X-RAY PENDING FROM THIS MORNING. Continue ANTIBIOTICs Current Visit: Yes Status: Acute Code(s): R10.9 - UNSPECIFIED ABDOMINAL PAIN SNOMED Code(s): 71242100 (2) Leukocytosis Current Visit: Yes Status: Acute Code(s): D72.829 - ELEVATED WHITE BLOOD CELL COUNT, UNSPECIFIED SNOMED Code(s): 281161301 (3) Small bowel obstruction Narrative/Plan: Gen. surgery following closely, NG tube placed Current Visit: Yes Status: Acute Code(s): K56.609 - UNSP INTESTNL OBST, UNSP TO PARTIAL VERSUS COMPLETE OBST SNOMED Code(s): 632920892 Plan: 1. Continue symptomatic and supportive care 2. Diet Per surgical recommendations 3. Flagyl and Levaquin started 4. Protonix for GI prophylaxis 5. Continue with recommendations from general surgery 6. No plans on colonoscopy at this time, will do as needed based on clinical course Thank you for this consultation, we will continue to monitor. Dr. Kaylin Mg I agree with the dictator's note, documented as a scribe by Meghan CLAYTON.
--- NOTE | 2021-04-28 09:49 | XR ---
EXAMINATION TYPE: XR abdomen 2V DATE OF EXAM: 04/28/2021 CLINICAL DATA: 70-year-old male bowel obstruction, [facility] COMPARISON: 04/27/2021 FINDINGS: Lung bases are clear. No evidence for free intraperitoneal air. Ongoing diffusely dilated small bowel loops with air-fluid levels currently measuring up to 5.9 cm pr eviously measured up to 7.2 cm, previously. Only minimal scattered colonic air as seen previously. IMPRESSION: Ongoing diffusely dilated small bowel loops with air-fluid levels. Dilatation show slight improvement currently measuring up to 5.9 cm versus 7.2 cm, previously.
[2021-04-28] MEDS: LEVOFLOXACIN 500MG-D5W PMX 500 MG in DEXTROSE/WATER 1 100ML.BAG IVPB SCH (12:02)
--- NOTE | 2021-04-28 12:25 | P.PN ---
Subjective Progress Note Date: 04/28/21 CHIEF COMPLAINT: Abdominal pain HISTORY OF PRESENT ILLNESS: The patient is a 70 year old male admitted due to bowel obstruction including right lower quadrant abdominal pain and ileitis with ascending colitis. Since admission, he has responded well to Levaquin and Flagyl antibiotics. Abdominal pain is minimal. Patient is passing flatus and had a bowel movement this morning. Abdominal x-rays were obtained. Patient reports moderate clinical improvement. He sitting up in chair. REVIEW OF ORGAN SYSTEMS: No fevers or chills. No chest pain. PHYSICAL EXAM: VITALS: Reviewed CONSTITUTIONAL: Well developed and in no acute distress. EYES: Conjuctivae without sclera icterus. Extraocular movements grossly intact. HEAD, EARS, NOSE, THROAT: Moist buccal mucosa. Head is atraumatic, normocephal ic. Hears conversational speech. No nasal drainage. NG tube present bilious. RESPIRATORY: Non-labored respirations and equal bilateral excursions. No gross wheezes. CARDIOVASCULAR: 2+ radial pulses. ABDOMEN: Decreased abdominal distention. No peritonitis. MUSCULOSKELETAL: No clubbing cyanosis or edema SKIN: Warm and well perfused with good skin turgor. NEUROLOGIC: Cranial nerves II through XII grossly intact. No focal or lateralizing signs. PSYCH: Appropriate affect. Alert and oriented to person, place and time. Displays appropriate insight. CLINCAL LABS: Reviewed. WBC elevated over 20 now normal at 9.9. IMAGING: Abdominal x-ray independent review demonstrating persistent dilated small bowel along the left upper quadrant. ASSESSMENT: 1. Abnormal computed tomography scan for inflammation ileitis, colitis 2. Abdominal pain 3. Inflammatory bowel disease, cannot be excluded 4. Bowel obstruction. PLAN: 1. Clinically, patient reports moderate improvement of his symptoms. May start liquid diet. 2. Continue antibiotics. 3. Monitor clinical course pending diet. Objective - Vital Signs Vital signs: Vital Signs Temp 97.9 F 04/28/21 07:00 Pulse 71 04/28/21 07:00 Resp 16 04/28/21 07:00 BP 156/80 04/28/21 07:00 Pulse Ox 97 04/28/21 07:00 Intake & Output 04/27/21 04/28/21 04/28/21 18:59 06:59 18:59 Intake Total 800 Output Total 300 Balance 800 -300 Intake: Intake, IV Titration 800 Amount Levofloxacin 500Mg-D5w 100 Pmx 500 mg In Dextrose/ Water 1 100ml.bag @ 100 mls/hr IVPB Q24H [facility] Rx#: [id number] Sodium Chloride 0.9% 1, 600 000 ml @ 75 mls/hr IV . [id number] [facility] Rx#:[id number] metroNIDAZOLE-NS PMX 500 100 mg In Saline 1 100ml.bag @ 100 mls/hr IVPB Q8HR [facility] Rx#:[id number] Output: Gastric Drainage 200 Urine 100 Other: Voiding Method Toilet Toilet Urinal Urinal # Voids 3 - Labs CBC & Chem 7: 04/28/21 08:21 04/27/21 05:59 Labs: Abnormal Lab Results - Last 24 Hours (Table) 04/28/21 Range/Units 08:21 RBC 3.88 L (4.30-5.90) m/uL Hgb 12.0 L (13.0-17.5) gm/dL Hct 38.8 L (39.0-53.0) % MCV 100.2 H D (80.0-100.0) fL MCHC 30.9 L (31.0-37.0) g/dL Plt Count 523 H (150-450) k/uL Neutrophils # 8.6 H (1.3-7.7) k/uL Lymphocytes # 0.8 L (1.0-4.8) k/uL Microbiology - Last 24 Hours (Table) 04/25/21 16:30 Blood Culture - Preliminary Blood No Growth after 48 hours 04/25/21 16:50 Blood Culture - Preliminary Blood No Growth after 48 hours Assessment and Plan (1) Ileitis Current Visit: Yes Status: Acute Code(s): K52.9 - NONINFECTIVE KUMAR ROENTERITIS AND COLITIS, UNSPECIFIED SNOMED Code(s): 56804162 (2) Colitis Current Visit: Yes Status: Acute Code(s): K52.9 - NONINFECTIVE GASTROENTERITIS AND COLITIS, UNSPECIFIED SNOMED Code(s): 17067345 (3) Small bowel obstruction Current Visit: Yes Status: Acute Code(s): K56.609 - UNSP INTESTNL OBST, UNSP TO PARTIAL VERSUS COMPLETE OBST SNOMED Code(s): 084370693
[2021-04-28] MEDS: PRAMIPEXOLE 1 MG TAB PO SCH (17:40)
--- NOTE | 2021-04-28 18:22 | P.PN ---
Progress Note - Text Progress Note Date: 04/28/21 Hospital course: Patient admitted with abdominal pain. Found to mechanical small bowel obstruct ion. NG tube was placed Pepe the patient pointed out in the middle of the night. April 27: Patient denies chest. Abdomen distended. Abdominal pain present. Last bowel movement was 4 days ago. No nausea vomiting. X-ray showing increasing dilatations of bowel. Patient was later seen by general surgery mancini and reinsertion of NG tube. No BM. No flatus. On IV Levaquin and Flagyl. April 28: Patient had a small BM. Some flatus. Has been out of bed. No nausea vomiting. Improvement in abdominal pain. Diet advanced to clear liquids by surgery. Abdominal x-ray still showing significant bowel dilatation. Active Medications Albuterol Sulfate (Albuterol Hfa Inhaler) 2 puff INHALATION RT-Q4H PRN PRN Reason: Shortness Of Breath Hydromorphone HCl (Hydromorphone 1 Mg/Ml 1 Ml Syringe) 1 mg IVP Q3HR PRN PRN Reason: Moderate to Severe Pain Metronidazole 500 mg/ IV (Solution) 100 mls @ 100 mls/hr IVPB Q8HR [facility] Last Admin: 04/28/21 17:47 Dose: 100 mls/hr Documented by: Levofloxacin 500 mg/ IV (Solution) 100 mls @ 100 mls/hr IVPB Q24H [facility] Last Admin: 04/28/21 12:02 Dose: 100 mls/hr Documented by: Sodium Chloride (Saline 0.9%) 1,000 mls @ 130 mls/hr IV .Q7H42M [facility] Last Admin: 04/28/21 05:20 Dose: Not Given Documented by: Ketorolac Tromethamine (Ketorolac 30 Mg/Ml 1 Ml Vial) 15 mg IVP Q6HR [facility] Stop: 04/29/21 12:20 Last Admin: 04/28/21 12:02 Dose: 15 mg Documented by: Lisinopril (Lisinopril 10 Mg Tab) 10 mg PO DAILY [facility] Last Admin: 04/28/21 07:51 Dose: 10 mg Documented by: Metoprolol Tartrate (Metoprolol Tartrate 25 Mg Tab) 25 mg PO BID [facility] Last Admin: 04/28/21 07:51 Dose: 25 mg Documented by: Naloxone HCl (Naloxone 0.4 Mg/Ml 1 Ml Vial) 0.2 mg IV Q2M PRN PRN Reason: Opioid Reversal Ondansetron HCl (Ondansetron 4 Mg/2 Ml Vial) 4 mg IVP Q8HR PRN PRN Reason: Nausea And Vomiting Pantoprazole Sodium (Pantoprazole 40 Mg/10 Ml Vial) 40 mg IVP DAILY [facility] Last Admin: 04/28/21 07:52 Dose: 40 mg Documented by: Pramipexole Dihydrochloride (Pramipexole 1 Mg Tab) 1.5 mg PO HS@1900 [facility] Last Admin: 04/28/21 17:40 Dose: 1.5 mg Documented by: Tamsulosin HCl (Tamsulosin 0.4 Mg Cap.Er.24h) 0.4 mg PO [facility] Last Admin: 04/27/21 21:16 Dose: 0.4 mg Documented by: On examination: VITAL SIGNS: 97.9, 71, 16, 156/80, 97% room air GENERAL APPEARANCE: Laying in bed, awake, HEENT: Normal external appearance of nose and ear. Oral cavity normal EYES: Pupils equal. Conjunctiva normal. NECK: JVD not raised. Mass not palpable. RESPIRATORY: Respiratory effort normal. Lungs clear to auscultation. CARDIOVASCULAR: First and second sounds normal. No edema. ABDOMEN: Less Distended, minimal tenderness hyperactive bowel sounds Liver and spleen not palpable. No tenderness. No mass palpable. PSYCHIATRY: Alert and oriented x3. Mood and affect normal. INVESTIGATIONS, reviewed in the clinical context: April 28: White count 9.9 hemoglobin 12 platelets 523. Abdominal x-ray shows diffusely dilated small bowel loops with air-fluid levels. Slight improvement. White count 13.5 hemoglobin 12.2 platelets 502 potassium 4.4 creatinine 1.2 CRP 29.8 procalcitonin 2.5 for Abdominal x-ray film personally reviewed by me dilated loops of bowel Computed tomography scan of the abdomen pelvis: Moderate inflammatory changes the right lower quadrant stopped and currently involving the distal ileum colon. Assessment and plan: -Acute distal ileitis: Slow to respond IV Levaquin, IV Flagyl -Acute small bowel obstruction: Some improvement NG tube discontinued. Advanced to clear liquids. -Atrial fibrillation -Hyperlipidemia Crestor 5 mg by mouth Sunday -Essential hypertension Lisinopril 10 mg a day -Osteoarthritis, primary -Restless leg syndrome Mirapex 1.5 mg by mouth daily at bedtime -BPH Flomax 0.4 mg daily at bedtime Continue with Levaquin and Flagyl. Clear liquid. Increase activity. Discussed with patient.
[2021-04-28] MEDS: TAMSULOSIN 0.4 MG CAP.ER.24H PO SCH (20:00)
[2021-04-29] MEDS: KETOROLAC 30 MG/ML 1 ML VIAL IVP SCH ×3 (00:40→13:22)
[2021-04-29] MEDS: metroNIDAZOLE-NS PMX 500 MG in SALINE 1 100ML.BAG IVPB SCH ×3 (00:40→15:51)
[2021-04-29] MEDS: ACETAMINOPHEN TAB 325 MG TAB PO PRN ×2 (02:52→08:01)
[2021-04-29] MEDS: SODIUM CHLORIDE 0.9% 1,000 ML IV SCH ×3 (05:35→17:18)
[2021-04-29] MEDS: PANTOPRAZOLE 40 MG/10 ML VIAL IVP SCH (07:56)
[2021-04-29] MEDS: lisinopriL 10 MG TAB PO SCH (09:20)
[2021-04-29] MEDS: METOPROLOL TARTRATE 25 MG TAB PO SCH ×2 (09:21→19:34)
[2021-04-29 09:38] LABS: Basophils # (A) 0.02 X 10*3/uL (0.00-0.10); Basophils % (A) 0.2 %; Eosinophils # (A) 0.18 X 10*3/uL (0.04-0.35); Eosinophils % (A) 1.9 %; HCT 35.9 % (39.6-50.0); HGB 11.7 g/dL (13.0-17.0); Immature Grans, Automated 0.3 %; Lymphocytes # (A) 0.98 X 10*3/uL (0.90-5.00); Lymphocytes % (A) 10.4 %; MCHC 32.6 g/dL (32.0-37.0); MCV 95.2 fL (80.0-97.0); Mean Platelet Volume 9.2 fL (9.5-12.2); Monocytes # (A) 0.63 X 10*3/uL (0.20-1.00); Monocytes % (A) 6.7 %; NRBC Per 100 WBC 0 /100 WBCS (0.0-0.0); Neutrophils # (A) 7.55 X 10*3/uL (1.80-7.70); Neutrophils % (A) 80.5 %; Platelet Count 477 X 10*3/uL (140-440); RBC 3.77 X 10*6/uL (4.40-5.60); RDW 13.6 % (11.5-14.5); WBC 9.39 X 10*3/uL (4.50-10.00)
[2021-04-29] MEDS: LEVOFLOXACIN 500MG-D5W PMX 500 MG in DEXTROSE/WATER 1 100ML.BAG IVPB SCH (11:45)
[2021-04-29 13:43] VITALS: BMI 31.7
--- NOTE | 2021-04-29 15:30 | P.PN ---
Subjective Progress Note Date: 04/29/21 CHIEF COMPLAINT: Abdominal pain HISTORY OF PRESENT ILLNESS: The patient is a 70 year old male admitted due to bowel obstruction including right lower quadrant abdominal pain and ileitis with ascending colitis. Patient reports mild discomfort in his abdomen. His pain is much better than admission. He is still distended. But less than yesterday. He is passing only a small amount of gas. He only had one bowel movement early yesterday morning. Since then no further bowel movement. Denies any nausea or vomiting.abdominal x-ray shows ongoing diffusely dilated small bowel loops with air-fluid levels. Dilatation show slight improvement currently measuring up to 5.9 cm versus 7.2 cm previously. Afebrile. WBC 9.39 hemoglobin 11.7 PHYSICAL EXAM: VITAL SIGNS: Reviewed GENERAL: Well-developed in no acute distress. HEENT: No sclera icterus. Extraocular movements grossly intact. Moist buccal m ucosa. Head is atraumatic, normocephalic. Hears conversational speech. No nasal drainage. NECK: Supple without lymphadenopathy. CHEST: Non-labored respirations and equal bilateral excursions. CARDIOVASCULAR: Palpable 2+ radial pulses. ABDOMEN: Distended but decreased from yesterday. Mild Tenderness with palpation of the right lower quadrant MUSCULOSKELETAL: No clubbing or cyanosis. NEUROLOGIC: No focal or lateralizing signs. Cranial nerves II through XII grossly intact. PSYCH: Appropriate affect. Alert and oriented to person, place and time. SKIN: Well perfused. Good skin turgor. ASSESSMENT: 1. Abnormal computed tomography scan for inflammation ileitis, colitis 2. Abdominal pain 3. Inflammatory bowel disease, cannot be excluded 4. Bowel obstruction. PLAN: -Downgrade diet to ice chips -Repeat abdominal x-ray in a.m. -Continue to monitor closely -Continue IV fluids -Continue pain medication as needed -Continue antibiotics Physician [employer] Operator note has been reviewed by physician. Signing provider agrees with the documented findings, assessment, and plan of care. Objective - Vital Signs Vital signs: Vital Signs Temp 98.3 F 04/29/21 07:46 Pulse 73 04/29/21 07:46 Resp 18 04/29/21 07:46 BP 154/83 04/29/21 07:46 Pulse Ox 95 04/29/21 07:46 Intake & Output 02/24/22 02/25/22 02/25/22 18:59 06:59 18:59 Intake Total 1080 2160 Output Total 200 Balance 1080 -200 2160 Weight 97.522 kg Intake: Oral 1080 2160 Output: Urine 200 Other: # Voids 3 - Labs CBC & Chem 7: 04/29/21 04:44 04/27/21 05:59 Labs: Abnormal Lab Results - Last 24 Hours (Table) 04/29/21 04/29/21 Range/Units 04:44 04:45 RBC 3.77 L (4.40-5.60) X 10*6/uL Hgb 11.7 L (13.0-17.0) g/dL Hct 35.9 L (39.6-50.0) % Plt Count 477 H (140-440) X 10*3/uL MPV 9.2 L (9.5-12.2) fL Procalcitonin 0.95 H (0.02-0.09) ng/mL Microbiology - Last 24 Hours (Table) 04/25/21 16:30 Blood Culture - Preliminary Blood No Growth after 72 hours 04/25/21 16:50 Blood Culture - Preliminary Blood No Growth after 72 hours
[2021-04-29] MEDS: HYDROmorphone 1 MG/ML 1 ML SYRINGE IVP PRN ×3 (15:51→22:54)
--- NOTE | 2021-04-29 16:17 | P.PN ---
Subjective Progress Note Date: 04/29/21 Principal diagnosis: Abdominal pain Patient is seen as follow-up. She was admitted with leukocytosis ileitis and a small bowel obstruction. Yesterday he was improving and NG tube was taken out, abdomen was soft and he had a small bowel movement and was started on clear liquid diet. Today he states after having his liquids he is feeling more distended, gassy, although he did have a very small bowel movement. He is having some discomfort in his abdomen however pain has significantly improved since admission. He has been afebrile. He denies any nausea or vomiting. Objective - Vital Signs Vital signs: Vital Signs Temp 98.3 F 04/29/21 07:46 Pulse 73 04/29/21 07:46 Resp 18 04/29/21 07:46 BP 154/83 04/29/21 07:46 Pulse Ox 95 04/29/21 07:46 Intake & Output 04/28/21 04/29/21 04/29/21 18:59 06:59 18:59 Intake Total 1080 2160 Output Total 200 Balance 1080 -200 2160 Weight 97.522 kg Intake: Oral 1080 2160 Output: Urine 200 Other: # Voids 3 - Exam General appearance: The patient is alert, oriented, appears in no acute distress. HET: Head is normocephalic and atraumatic. Conjunctiva pink. Sclera anicteric. Neck: Supple without lymphadenopathy. Abdomen: Soft, very mild tenderness to palpation in right lower abdomen, distended. No guarding or rigidity. Extremities: Normal skin color and turgor. No pedal edema Skin: No rashes, no jaundice Neurological: No focal deficits. Alert and oriented x3. - Labs CBC & Chem 7: 04/29/21 04:44 04/27/21 05:59 Labs: Abnormal Lab Results - Last 24 Hours (Table) 04/29/21 04/29/21 Range/Units 04:44 04:45 RBC 3.77 L (4.40-5.60) X 10*6/uL Hgb 11.7 L (13.0-17.0) g/dL Hct 35.9 L (39.6-50.0) % Plt Count 477 H (140-440) X 10*3/uL MPV 9.2 L (9.5-12.2) fL Procalcitonin 0.95 H (0.02-0.09) ng/mL Microbiology - Last 24 Hours (Table) 04/25/21 16:30 Blood Culture - Preliminary Blood No Growth after 72 hours 04/25/21 16:50 Blood Culture - Preliminary Blood No Growth after 72 hours Assessment and Plan (1) Abdominal pain Narrative/Plan: A 70-year-old female who presented to the emergency department with complaints of abdominal pain which started approximately 2 weeks ago. Predominantly in the right lower quadrant and not associated with any nausea, vomiting, diarrhea or fever. States his last bowel movement was 2-3 days ago. Denies any previous history of Crohn's disease or colitis. His colonoscopy approximately 5 years ago which he states was overall normal other than colon polyp. He was positive for COVID-19 infection earlier this month. Negative at this time. He had a CT of the abdomen showing moderate inflammatory changes in the right lower quadrant distal ileum/colon. Appendicitis cannot be ruled out. He did have elevated inflammatory markers as well as evidence of leukocytosis. He's been afebrile. Likely infectious etiology however ischemic cannot be ruled out. Will start patient on IV antibiotics. Await recommendations from general surgery. No plans on colonoscopy at this time. SIGNIFICANTLY IMPROVED. PATIENT HAD A BOWEL MOVEMENT TODAY. GEN. SURGERY IS FOLLOWING VERY CLOSELY. X-RAY PENDING FROM THIS MORNING. Continue ANTIBIOTICs Current Visit: Yes Status: Acute Code(s): R10.9 - UNSPECIFIED ABDOMINAL PAIN SNOMED Code(s): 86609083 (2) Leukocytosis Current Visit: Yes Status: Acute Code(s): D72.829 - ELEVATED WHITE BLOOD CELL COUNT, UNSPECIFIED SNOMED Code(s): 409888975 (3) Small bowel obstruction Narrative/Plan: Gen. surgery following closely, NG tube placed Current Visit: Yes Status: Acute Code(s): K56.609 - UNSP INTESTNL OBST, UNSP TO PARTIAL VERSUS COMPLETE OBST SNOMED Code(s): 485811488 Plan: 1. Continue symptomatic and supportive care 2. Diet Per surgical recommendations 3. Continue Flagyl and Levaquin 4. Protonix for GI prophylaxis 5. Continue with recommendations from general surgery 6. No plans on colonoscopy at this time, will do as needed based on clinical course Thank you for allowing us to participate in the care of the patient, the GI service will sign off, gastroenterology will not be available at the hospital this weekend. If further evaluation by gastroenterology is required the patient will need transfer as per the primary team's discretion. Dr. Kaylin Mg I agree with the dictator's note, documented as a scribe by Meghan Villafuerte.
--- NOTE | 2021-04-29 16:24 | P.PN ---
Progress Note - Text Progress Note Date: 04/29/21 Hospital course: Patient admitted with abdominal pain. Found to mechanical small bowel obstruct ion. NG tube was placed Pepe the patient pointed out in the middle of the night. April 27: Patient denies chest. Abdomen distended. Abdominal pain present. Last bowel movement was 4 days ago. No nausea vomiting. X-ray showing increasing dilatations of bowel. Patient was later seen by general surgery mancini and reinsertion of NG tube. No BM. No flatus. On IV Levaquin and Flagyl. April 28: Patient had a small BM. Some flatus. Has been out of bed. No nausea vomiting. Improvement in abdominal pain. Diet advanced to clear liquids by surgery. Abdominal x-ray still showing significant bowel dilatation. April 29: Patient still has some abdominal pain. He describes about 8 inch long BM. Dark in color. No nausea vomiting. Surgery earlier downgraded patient's diet to ice chips. Has been up to the bathroom. Abdomen still distended Active Medications Acetaminophen (Acetaminophen Tab 325 Mg Tab) 325 mg PO Q6HR PRN PRN Reason: Fever and/ or Pain Last Admin: 04/29/21 08:01 Dose: 325 mg Documented by: Albuterol Sulfate (Albuterol Hfa Inhaler) 2 puff INHALATION RT-Q4H PRN PRN Reason: Shortness Of Breath Hydromorphone HCl (Hydromorphone 1 Mg/Ml 1 Ml Syringe) 1 mg IVP Q3HR PRN PRN Reason: Moderate to Severe Pain Last Admin: 04/29/21 15:51 Dose: 1 mg Documented by: Metronidazole 500 mg/ IV (Solution) 100 mls @ 100 mls/hr IVPB Q8HR [facility] Last Admin: 04/29/21 15:51 Dose: 100 mls/hr Documented by: Levofloxacin 500 mg/ IV (Solution) 100 mls @ 100 mls/hr IVPB Q24H [facility] Last Admin: 04/29/21 11:45 Dose: 100 mls/hr Documented by: Sodium Chloride (Saline 0.9%) 1,000 mls @ 130 mls/hr IV .Q7H42M [facility] Last Admin: 04/29/21 13:07 Dose: Not Given Documented by: Lisinopril (Lisinopril 10 Mg Tab) 10 mg PO DAILY [facility] Last Admin: 04/29/21 09:20 Dose: 10 mg Documented by: Metoprolol Tartrate (Metoprolol Tartrate 25 Mg Tab) 25 mg PO BID [facility] Last Admin: 04/29/21 09:21 Dose: 25 mg Documented by: Naloxone HCl (Naloxone 0.4 Mg/Ml 1 Ml Vial) 0.2 mg IV Q2M PRN PRN Reason: Opioid Reversal Ondansetron HCl (Ondansetron 4 Mg/2 Ml Vial) 4 mg IVP Q8HR PRN PRN Reason: Nausea And Vomiting Pantoprazole Sodium (Pantoprazole 40 Mg/10 Ml Vial) 40 mg IVP DAILY [facility] Last Admin: 04/29/21 07:56 Dose: 40 mg Documented by: Pramipexole Dihydrochloride (Pramipexole 1 Mg Tab) 1.5 mg PO HS@1900 [facility] Last Admin: 04/28/21 17:40 Dose: 1.5 mg Documented by: Tamsulosin HCl (Tamsulosin 0.4 Mg Cap.Er.24h) 0.4 mg PO HS [facility] Last Admin: 04/28/21 20:00 Dose: 0.4 mg Documented by: On examination: VITAL SIGNS: 98.2, 73, 18, 150/83, 98% room air GENERAL APPEARANCE: Laying in bed, awake, HEENT: Normal external appearance of nose and ear. Oral cavity normal EYES: Pupils equal. Conjunctiva normal. NECK: JVD not raised. Mass not palpable. RESPIRATORY: Respiratory effort normal. Lungs clear to auscultation. CARDIOVASCULAR: First and second sounds normal. No edema. ABDOMEN: Distended, some tenderness hyperactive bowel sounds Liver and spleen not palpable. No tenderness. No mass palpable. PSYCHIATRY: Alert and oriented x3. Mood and affect normal. INVESTIGATIONS, reviewed in the clinical context: April 29: White count 9.3 hemoglobin 11.7 platelets 477. Pro-calcitonin 0.95 April 28: White count 9.9 hemoglobin 12 platelets 523. Abdominal x-ray shows diffusely dilated small bowel loops with air-fluid levels. Slight improvement. White count 13.5 hemoglobin 12.2 platelets 502 potassium 4.4 creatinine 1.2 CRP 29.8 procalcitonin 2.5 for Abdominal x-ray film personally reviewed by me dilated loops of bowel Computed tomography scan of the abdomen pelvis: Moderate inflammatory changes the right lower quadrant stopped and currently involving the distal ileum colon. Assessment and plan: -Acute distal ileitis: Slow to respond IV Levaquin, IV Flagyl -Acute small bowel obstruction: Slow to respond Diet cutback to ice chips. -Atrial fibrillation -Hyperlipidemia Crestor 5 mg by mouth Sunday -Essential hypertension Lisinopril 10 mg a day -Osteoarthritis, primary -Restless leg syndrome Mirapex 1.5 mg by mouth daily at bedtime -BPH Flomax 0.4 mg daily at bedtime Continue with Levaquin and Flagyl. Diet cutback to ice chips. Repeat abdominal x-ray ordered. Discussed with patient.
--- NOTE | 2021-04-29 18:20 | XR ---
2 view abdomen HISTORY: Follow-up small bowel obstruction 2 views the abdomen on 3 images correlated prior exam 04/28/2021 There are multiple air-fluid levels with gas distention of the loops. No evident pneumoperitoneum. Sandra ng bases are similar, there is elevation of right hemidiaphragm. Probable vascular calcifications pre sent within the pelvis. IMPRESSION: Correlate for small bowel obstruction.
[2021-04-29] MEDS: PRAMIPEXOLE 1 MG TAB PO SCH (19:34)
[2021-04-29] MEDS: TAMSULOSIN 0.4 MG CAP.ER.24H PO SCH (19:35)
--- NOTE | 2021-04-29 22:43 | XR ---
EXAMINATION TYPE: XR chest 1V DATE OF EXAM: 04/29/2021 COMPARISON: 04/27/2021 HISTORY: Check tube placement TECHNIQUE: Single view FINDINGS: There is nasogastric tube with the tip over the gastric fundus. There is some atelectasis r ight lung base with elevated right diaphragm and slight blunting right costophrenic angle. There is n o heart failure. IMPRESSION: There is some atelectasis and pleural reaction right lung base similar to recent exam. NG tube has the tip probably in the gastric fundus close to the gastroesophageal junction. No change co mpared to recent exam.
[2021-04-29] MEDS: ONDANSETRON 4 MG/2 ML VIAL IVP PRN (22:49)
[2021-04-30] MEDS: metroNIDAZOLE-NS PMX 500 MG in SALINE 1 100ML.BAG IVPB SCH ×4 (00:13→23:45)
[2021-04-30] MEDS: SODIUM CHLORIDE 0.9% 1,000 ML IV SCH ×3 (01:54→16:18)
[2021-04-30] MEDS: HYDROmorphone 1 MG/ML 1 ML SYRINGE IVP PRN ×6 (03:00→21:00)
[2021-04-30] MEDS: PANTOPRAZOLE 40 MG/10 ML VIAL IVP SCH (07:46)
[2021-04-30] MEDS: METOPROLOL TARTRATE 25 MG TAB PO SCH ×2 (09:00→19:31)
[2021-04-30] MEDS: lisinopriL 10 MG TAB PO SCH (09:00)
[2021-04-30] MEDS: ONDANSETRON 4 MG/2 ML VIAL IVP PRN ×2 (09:56→18:00)
--- NOTE | 2021-04-30 11:04 | P.PN ---
Subjective Progress Note Date: 04/30/21 Principal diagnosis: Abdominal pain Patient having bowel function. Had loose stools last night and again this morning. Nasogastric tube with bilious output small volume. Says his pain is about the same. He is afebrile. Vitals are stable. Recent white blood cell count normal. Objective - Vital Signs Vital signs: Vital Signs Temp 98.5 F 04/30/21 08:00 Pulse 81 04/30/21 08:00 Resp 16 04/30/21 08:00 BP 138/83 04/30/21 08:00 Pulse Ox 94 L 04/30/21 08:00 Intake & Output 04/29/21 04/30/21 04/30/21 18:59 06:59 18:59 Intake Total 2160 Balance 2160 Weight 97.522 kg Intake: Oral 2160 Other: Voiding Method Toilet Toilet Urinal Urinal # Voids 3 - Exam Abdomen: Soft, mild distention, mild diffuse tenderness - Labs CBC & Chem 7: 04/29/21 04:44 04/27/21 05:59 Labs: Microbiology - Last 24 Hours (Table) 04/25/21 16:30 Blood Culture - Preliminary Blood No Growth after 96 hours 04/25/21 16:50 Blood Culture - Preliminary Blood No Growth after 96 hours Assessment and Plan (1) Abdominal pain Narrative/Plan: Patient seems to be doing about the same today from what I can gather. His bowel function has improved however. Will order repeat CBC. Looked at the flex davis's chest x-ray. Nasogastric tube probably could be advanced a little bit I will ask the nursing staff to do so. Continue increasing activity. Continue bowel rest and antibiotics. Current Visit: Yes Status: Acute Code(s): R10.9 - UNSPECIFIED ABDOMINAL PAIN SNOMED Code(s): 40346710
[2021-04-30] MEDS: LEVOFLOXACIN 500MG-D5W PMX 500 MG in DEXTROSE/WATER 1 100ML.BAG IVPB SCH (11:24)
[2021-04-30] MEDS: PRAMIPEXOLE 1 MG TAB PO SCH (18:11)
--- NOTE | 2021-04-30 18:22 | P.PN ---
Progress Note - Text Progress Note Date: 04/30/21 Hospital course: Patient admitted with abdominal pain. Found to mechanical small bowel obstruct ion. NG tube was placed Pepe the patient pointed out in the middle of the night. April 27: Patient denies chest. Abdomen distended. Abdominal pain present. Last bowel movement was 4 days ago. No nausea vomiting. X-ray showing increasing dilatations of bowel. Patient was later seen by general surgery mancini and reinsertion of NG tube. No BM. No flatus. On IV Levaquin and Flagyl. April 28: Patient had a small BM. Some flatus. Has been out of bed. No nausea vomiting. Improvement in abdominal pain. Diet advanced to clear liquids by surgery. Abdominal x-ray still showing significant bowel dilatation. April 29: Patient still has some abdominal pain. He describes about 8 inch long BM. Dark in color. No nausea vomiting. Surgery earlier downgraded patient's diet to ice chips. Has been up to the bathroom. Abdomen still distended April 2015: NG tube was placed last night. Abdominal distention. Some flatus. Abdominal discomfort. No nausea vomiting. Abdominal x-ray from last night showing significant small bowel obstruction. Active Medications Acetaminophen (Acetaminophen Tab 325 Mg Tab) 325 mg PO Q6HR PRN PRN Reason: Fever and/ or Pain Last Admin: 04/29/21 08:01 Dose: 325 mg Documented by: Albuterol Sulfate (Albuterol Hfa Inhaler) 2 puff INHALATION RT-Q4H PRN PRN Reason: Shortness Of Breath Hydromorphone HCl (Hydromorphone 1 Mg/Ml 1 Ml Syringe) 1 mg IVP Q3HR PRN PRN Reason: Moderate to Severe Pain Last Admin: 04/30/21 18:00 Dose: 1 mg Documented by: Metronidazole 500 mg/ IV (Solution) 100 mls @ 100 mls/hr IVPB Q8HR [facility] Last Admin: 04/30/21 16:13 Dose: 100 mls/hr Documented by: Levofloxacin 500 mg/ IV (Solution) 100 mls @ 100 mls/hr IVPB Q24H [facility] Last Admin: 04/30/21 11:24 Dose: 100 mls/hr Documented by: Sodium Chloride (Saline 0.9%) 1,000 mls @ 130 mls/hr IV .Q7H42M [facility] Last Admin: 04/30/21 16:18 Dose: 130 mls/hr Documented by: Lisinopril (Lisinopril 10 Mg Tab) 10 mg PO DAILY [facility] Last Admin: 04/30/21 09:00 Dose: 10 mg Documented by: Metoprolol Tartrate (Metoprolol Tartrate 25 Mg Tab) 25 mg PO BID [facility] Last Admin: 04/30/21 09:00 Dose: 25 mg Documented by: Naloxone HCl (Naloxone 0.4 Mg/Ml 1 Ml Vial) 0.2 mg IV Q2M PRN PRN Reason: Opioid Reversal Ondansetron HCl (Ondansetron 4 Mg/2 Ml Vial) 4 mg IVP Q8HR PRN PRN Reason: Nausea And Vomiting Last Admin: 04/30/21 18:00 Dose: 4 mg Documented by: Pantoprazole Sodium (Pantoprazole 40 Mg/10 Ml Vial) 40 mg IVP DAILY [facility] Last Admin: 04/30/21 07:46 Dose: 40 mg Documented by: Pramipexole Dihydrochloride (Pramipexole 1 Mg Tab) 1.5 mg PO HS@1900 [facility] Last Admin: 04/30/21 18:11 Dose: 1.5 mg Documented by: Tamsulosin HCl (Tamsulosin 0.4 Mg Cap.Er.24h) 0.4 mg PO HS [facility] Last Admin: 04/29/21 19:35 Dose: 0.4 mg Documented by: On examination: VITAL SIGNS: 98.5, 81, 16, 138/83, 94% room air GENERAL APPEARANCE: Laying in bed, awake, HEENT: Normal external appearance of nose and ear. NG tube to intermittent suction EYES: Pupils equal. Conjunctiva normal. NECK: JVD not raised. Mass not palpable. RESPIRATORY: Respiratory effort normal. Lungs clear to auscultation. CARDIOVASCULAR: First and second sounds normal. No edema. ABDOMEN: Distended, some tenderness hyperactive bowel sounds Liver and spleen not palpable. No tenderness. No mass palpable. PSYCHIATRY: Alert and oriented x3. Mood and affect normal. INVESTIGATIONS, reviewed in the clinical context: April 29: White count 9.3 hemoglobin 11.7 platelets 477. Pro-calcitonin 0.95 April 28: White count 9.9 hemoglobin 12 platelets 523. Abdominal x-ray shows diffusely dilated small bowel loops with air-fluid levels. Slight improvement. White count 13.5 hemoglobin 12.2 platelets 502 potassium 4.4 creatinine 1.2 CRP 29.8 procalcitonin 2.5 for Abdominal x-ray film personally reviewed by me dilated loops of bowel Computed tomography scan of the abdomen pelvis: Moderate inflammatory changes the right lower quadrant stopped and currently involving the distal ileum colon. Assessment and plan: -Acute distal ileitis: Slow to respond IV Levaquin, IV Flagyl -Acute small bowel obstruction: Not improving Patient put back on NG tube suction -Atrial fibrillation -Hyperlipidemia Crestor 5 mg by mouth Sunday -Essential hypertension Lisinopril 10 mg a day -Osteoarthritis, primary -Restless leg syndrome Mirapex 1.5 mg by mouth daily at bedtime -BPH Flomax 0.4 mg daily at bedtime IV Levaquin and Flagyl. NG tube placed last night. Back to suction. Discussed with patient. Follow labs.
[2021-04-30] MEDS: TAMSULOSIN 0.4 MG CAP.ER.24H PO SCH (19:31)
[2021-04-30] MEDS: ACETAMINOPHEN TAB 325 MG TAB PO PRN (20:22)
[2021-05-01] MEDS: HYDROmorphone 1 MG/ML 1 ML SYRINGE IVP PRN ×8 (00:18→23:37)
[2021-05-01] MEDS: SODIUM CHLORIDE 0.9% 1,000 ML IV SCH ×4 (03:09→23:40)
[2021-05-01 06:03] LABS: ALT 60 U/L (4-49); AST 83 U/L (17-59); African American GFR (CKD) 77 (>60 ml/min/1.73 sqM); Albumin 2.7 g/dL (3.5-5.0); Alkaline Phosphatase 96 U/L (38-126); Anion Gap 9 mmol/L; Blood Urea Nitrogen 13 mg/dL (9-20); Calcium 8.7 mg/dL (8.4-10.2); Carbon Dioxide 22 mmol/L (22-30); Chloride 112 mmol/L (98-107); Globulin 2.8 g/dL; Glucose 94 mg/dL (74-99); Non-African American GFR(CKD) 66 (>60 ml/min/1.73 sqM); Potassium 4.4 mmol/L (3.5-5.1); Sodium 143 mmol/L (137-145); Total Bilirubin 0.6 mg/dL (0.2-1.3); Total Protein 5.5 g/dL (6.3-8.2)
[2021-05-01] MEDS: PANTOPRAZOLE 40 MG/10 ML VIAL IVP SCH (07:30)
[2021-05-01 09:03] LABS: Basophils # (A) 0.03 X 10*3/uL (0.00-0.10); Basophils % (A) 0.3 %; Eosinophils # (A) 0.15 X 10*3/uL (0.04-0.35); Eosinophils % (A) 1.3 %; HGB 12.8 g/dL (13.0-17.0); Immature Grans, Automated 0.4 %; Lymphocytes # (A) 1.27 X 10*3/uL (0.90-5.00); Lymphocytes % (A) 10.6 %; MCH 30.6 pg (27.0-32.0); MCHC 31.2 g/dL (32.0-37.0); MCV 98.1 fL (80.0-97.0); Mean Platelet Volume 9.2 fL (9.5-12.2); Monocytes # (A) 0.62 X 10*3/uL (0.20-1.00); Monocytes % (A) 5.2 %; NRBC Per 100 WBC 0 /100 WBCS (0.0-0.0); Neutrophils # (A) 9.81 X 10*3/uL (1.80-7.70); Neutrophils % (A) 82.2 %; Platelet Count 517 X 10*3/uL (140-440); RBC 4.18 X 10*6/uL (4.40-5.60); RDW 14.1 % (11.5-14.5); WBC 11.93 X 10*3/uL (4.50-10.00)
[2021-05-01] MEDS: metroNIDAZOLE-NS PMX 500 MG in SALINE 1 100ML.BAG IVPB SCH ×3 (09:24→23:35)
[2021-05-01] MEDS: lisinopriL 10 MG TAB PO SCH (09:24)
[2021-05-01] MEDS: METOPROLOL TARTRATE 25 MG TAB PO SCH ×2 (09:24→19:27)
--- NOTE | 2021-05-01 09:45 | P.PN ---
Subjective Progress Note Date: 05/01/21 Principal diagnosis: Abdominal pain Patient says he feels better today. His nasogastric tube was advanced slightly and he has had better output overnight. He is passing flatus. No bowel movement overnight. White blood cell count increased slightly now to 11.9. States he is in better spirits. Less pain. Objective - Vital Signs Vital signs: Vital Signs Temp 98.5 F 05/01/21 08:00 Pulse 87 05/01/21 08:00 Resp 16 05/01/21 08:00 BP 161/89 05/01/21 08:00 Pulse Ox 94 L 05/01/21 08:00 Intake & Output 04/30/21 05/01/21 05/01/21 18:59 06:59 18:59 Output Total 250 250 Balance -250 -250 Output: Gastric Drainage 250 250 Other: Voiding Method Toilet Toilet Toilet Urinal Urinal Urinal # Voids 4 - Exam Abdomen: Soft, mild distention, mild diffuse tenderness, no rebound or guarding - Labs CBC & Chem 7: 05/01/21 04:32 05/01/21 04:32 Labs: Abnormal Lab Results - Last 24 Hours (Table) 05/01/21 05/01/21 Range/Units 04:32 04:32 WBC 11.93 H (4.50-10.00) X 10*3/uL RBC 4.18 L (4.40-5.60) X 10*6/uL Hgb 12.8 L (13.0-17.0) g/dL MCV 98.1 H (80.0-97.0) fL MCHC 31.2 L (32.0-37.0) g/dL Plt Count 517 H (140-440) X 10*3/uL MPV 9.2 L (9.5-12.2) fL Immature Gran # 0.05 H (0.00-0.04) X 10*3/uL Neutrophils # 9.81 H (1.80-7.70) X 10*3/uL Chloride 112 H (98-107) mmol/L AST 83 H (17-59) U/L ALT 60 H (4-49) U/L Total Protein 5.5 L (6.3-8.2) g/dL Albumin 2.7 L (3.5-5.0) g/dL Microbiology - Last 24 Hours (Table) 04/25/21 16:30 Blood Culture - Preliminary Blood No Growth after 120 hours 04/25/21 16:50 Blood Culture - Preliminary Blood No Growth after 120 hours Assessment and Plan (1) Abdominal pain Narrative/Plan: Patient continues to have bowel function. Better nasogastric tube output today. Keep nothing by mouth. Possible repeat CAT scan early this week per Dr. Pinedo. Current Visit: Yes Status: Acute Code(s): R10.9 - UNSPECIFIED ABDOMINAL PAIN SNOMED Code(s): 11759503
[2021-05-01] MEDS: LEVOFLOXACIN 500MG-D5W PMX 500 MG in DEXTROSE/WATER 1 100ML.BAG IVPB SCH (12:00)
--- NOTE | 2021-05-01 18:04 | P.PN ---
Progress Note - Text Progress Note Date: 05/01/21 Hospital course: Patient admitted with abdominal pain. Found to mechanical small bowel obstruct ion. NG tube was placed Pepe the patient pointed out in the middle of the night. April 27: Patient denies chest. Abdomen distended. Abdominal pain present. Last bowel movement was 4 days ago. No nausea vomiting. X-ray showing increasing dilatations of bowel. Patient was later seen by general surgery mancini and reinsertion of NG tube. No BM. No flatus. On IV Levaquin and Flagyl. April 28: Patient had a small BM. Some flatus. Has been out of bed. No nausea vomiting. Improvement in abdominal pain. Diet advanced to clear liquids by surgery. Abdominal x-ray still showing significant bowel dilatation. April 29: Patient still has some abdominal pain. He describes about 8 inch long BM. Dark in color. No nausea vomiting. Surgery earlier downgraded patient's diet to ice chips. Has been up to the bathroom. Abdomen still distended April 30: NG tube was placed last night. Abdominal distention. Some flatus. Abdominal discomfort. No nausea vomiting. Abdominal x-ray from last night showing significant small bowel obstruction. May 01: NG tube to suction. Abdominal pain present. at the bedside. No nausea vomiting. Has been passing some flatus. Start the patient on TPN and lipids after getting a PICC line Active Medications Acetaminophen (Acetaminophen Tab 325 Mg Tab) 325 mg PO Q6HR PRN PRN Reason: Fever and/ or Pain Last Admin: 04/30/21 20:22 Dose: 325 mg Documented by: Albuterol Sulfate (Albuterol Hfa Inhaler) 2 puff INHALATION RT-Q4H PRN PRN Reason: Shortness Of Breath Hydromorphone HCl (Hydromorphone 1 Mg/Ml 1 Ml Syringe) 1 mg IVP Q3HR PRN PRN Reason: Moderate to Severe Pain Last Admin: 05/01/21 16:50 Dose: 1 mg Documented by: Metronidazole 500 mg/ IV (Solution) 100 mls @ 100 mls/hr IVPB Q8HR [facility] Last Admin: 05/01/21 15:47 Dose: 100 mls/hr Documented by: Levofloxacin 500 mg/ IV (Solution) 100 mls @ 100 mls/hr IVPB Q24H [facility] Last Admin: 05/01/21 12:00 Dose: 100 mls/hr Documented by: Sodium Chloride (Saline 0.9%) 1,000 mls @ 130 mls/hr IV .Q7H42M [facility] Last Admin: 05/01/21 15:47 Dose: 130 mls/hr Documented by: Lisinopril (Lisinopril 10 Mg Tab) 10 mg PO DAILY [facility] Last Admin: 05/01/21 09:24 Dose: 10 mg Documented by: Metoprolol Tartrate (Metoprolol Tartrate 25 Mg Tab) 25 mg PO BID [facility] Last Admin: 05/01/21 09:24 Dose: 25 mg Documented by: Naloxone HCl (Naloxone 0.4 Mg/Ml 1 Ml Vial) 0.2 mg IV Q2M PRN PRN Reason: Opioid Reversal Ondansetron HCl (Ondansetron 4 Mg/2 Ml Vial) 4 mg IVP Q8HR PRN PRN Reason: Nausea And Vomiting Last Admin: 04/30/21 18:00 Dose: 4 mg Documented by: Pantoprazole Sodium (Pantoprazole 40 Mg/10 Ml Vial) 40 mg IVP DAILY [facility] Last Admin: 05/01/21 07:30 Dose: 40 mg Documented by: Pramipexole Dihydrochloride (Pramipexole 1 Mg Tab) 1.5 mg PO HS@1900 [facility] Last Admin: 04/30/21 18:11 Dose: 1.5 mg Documented by: Tamsulosin HCl (Tamsulosin 0.4 Mg Cap.Er.24h) 0.4 mg PO HS [facility] Last Admin: 04/30/21 19:31 Dose: 0.4 mg Documented by: On examination: VITAL SIGNS: 98.5, 93, 16, 150/85, 92% room air GENERAL APPEARANCE: Reclining in bed, awake, HEENT: Normal external appearance of nose and ear. NG tube to intermittent suction EYES: Pupils equal. Conjunctiva normal. NECK: JVD not raised. Mass not palpable. RESPIRATORY: Respiratory effort normal. Lungs clear to auscultation. CARDIOVASCULAR: First and second sounds normal. No edema. ABDOMEN: Distended, some tenderness hyperactive bowel sounds Liver and spleen not palpable. No tenderness. No mass palpable. PSYCHIATRY: Alert and oriented x3. Mood and affect normal. INVESTIGATIONS, reviewed in the clinical context: May 01: White count 11.9 hemoglobin 12.8 potassium 4.4 creatinine 1.1 April 29: White count 9.3 hemoglobin 11.7 platelets 477. Pro-calcitonin 0.95 April 28: White count 9.9 hemoglobin 12 platelets 523. Abdominal x-ray shows diffusely dilated small bowel loops with air-fluid levels. Slight improvement. White count 13.5 hemoglobin 12.2 platelets 502 potassium 4.4 creatinine 1.2 CRP 29.8 procalcitonin 2.5 for Abdominal x-ray film personally reviewed by me dilated loops of bowel Computed tomography scan of the abdomen pelvis: Moderate inflammatory changes the right lower quadrant stopped and currently involving the distal ileum colon. Assessment and plan: -Acute distal ileitis: Not improving IV Levaquin, IV Flagyl -Acute small bowel obstruction: Not improving Continue NG tube suction -Paroxysmal Atrial fibrillation, currently in sinus rhythm On telemetry -Hyperlipidemia Crestor 5 mg by mouth Sunday -Essential hypertension Lisinopril 10 mg a day -Osteoarthritis, primary -Restless leg syndrome Mirapex 1.5 mg by mouth daily at bedtime -BPH Flomax 0.4 mg daily at bedtime IV Levaquin and Flagyl. NG tube to intermittent suction. Patient is has not been eating since a week now. PICC line ordered. Have TPN and lipids started tomorrow. Discussed with patient and .
[2021-05-01] MEDS: PRAMIPEXOLE 1 MG TAB PO SCH (18:27)
[2021-05-01] MEDS: TAMSULOSIN 0.4 MG CAP.ER.24H PO SCH (19:28)
[2021-05-02] MEDS: HYDROmorphone 1 MG/ML 1 ML SYRINGE IVP PRN ×5 (03:54→20:47)
[2021-05-02 05:15] LABS: African American GFR (CKD) 75 (>60 ml/min/1.73 sqM); Anion Gap 12 mmol/L; Blood Urea Nitrogen 13 mg/dL (9-20); Calcium 8.7 mg/dL (8.4-10.2); Carbon Dioxide 21 mmol/L (22-30); Chloride 111 mmol/L (98-107); Glucose 93 mg/dL (74-99); Non-African American GFR(CKD) 65 (>60 ml/min/1.73 sqM); Potassium 4.3 mmol/L (3.5-5.1); Sodium 144 mmol/L (137-145)
[2021-05-02 05:31] LABS: INR 1.2 (<1.2); Prothrombin Time 12.9 sec (9.0-12.0)
[2021-05-02] MEDS: SODIUM CHLORIDE 0.9% 1,000 ML IV SCH ×2 (08:39→16:51)
[2021-05-02] MEDS ORDERED: LIDOCAINE 1% INJ 10MG/ML (20 ML MDV) SQ ONE (08:50)
[2021-05-02] MEDS: METOPROLOL TARTRATE 25 MG TAB PO SCH ×2 (09:24→20:48)
[2021-05-02] MEDS: PANTOPRAZOLE 40 MG/10 ML VIAL IVP SCH (09:24)
[2021-05-02] MEDS: lisinopriL 10 MG TAB PO SCH (09:24)
[2021-05-02] MEDS: metroNIDAZOLE-NS PMX 500 MG in SALINE 1 100ML.BAG IVPB SCH ×3 (09:25→23:18)
--- NOTE | 2021-05-02 09:40 | IR ---
EXAMINATION TYPE: IR cvc insert >=5 years DATE OF EXAM: 05/02/2021 COMPARISON: NONE CLINICAL HISTORY: Small bowel obstruction Needs long-term intravenous access for therapy, total paren teral nutrition. PROCEDURE: Hand hygiene obtained with soap and water and alcohol-based hand rub. After informed consent, the skin overlying the left basilic vein was localized with ultrasound and no toni to be compressible and patent. An ultrasound image was obtained and submitted on the patient's c reid. The overlying skin was prepped and draped and Lidocaine was used for local anesthesia. A skin gómez was made with a scalpel. Access was gained to the vein under ultrasound guidance with a 21 gau ge needle and a 0.018 inch wire was advanced. Access site was dilated with Peel-Away sheath and cath eter tailored to the appropriate length and advanced such that the distal tip is at the cavoatrial ju nction. Spot image was obtained verifying placement. Catheter was fixed to the skin and a sterile d ressing was placed following hemostasis. Catheter was aspirated and flushed with saline. Patient wa s discharged in stable condition without complication.Maximal barrier technique is utilized. Ultraso und image is documented on the chart. Ultrasound used with sterile technique. Fluoro time and fluoroscopic images submitted to document procedure: 28 intraoperative C-arm images, 1 minute fluoroscopy time IMPRESSION: STATUS POST ULTRASOUND AND FLUOROSCOPIC GUIDED PICC LINE PLACEMENT, READY FOR USE. THIS PROCEDURE WAS PERFORMED BY THE UNDERSIGNED.
[2021-05-02 11:48] LABS: Albumin 2.7 g/dL (3.5-5.0); Magnesium 2.3 mg/dL (1.6-2.3); Phosphorus 4.2 mg/dL (2.5-4.5)
[2021-05-02] MEDS: IOPAMIDOL CONTRAST (ORAL USE) VIAL PO PRN ×2 (12:35→14:08)
[2021-05-02] MEDS: LEVOFLOXACIN 500MG-D5W PMX 500 MG in DEXTROSE/WATER 1 100ML.BAG IVPB SCH (12:36)
--- NOTE | 2021-05-02 14:27 | P.PN ---
Subjective Progress Note Date: 05/02/21 CHIEF COMPLAINT: Abdominal pain HISTORY OF PRESENT ILLNESS: The patient is a 70 year old male admitted due to bowel obstruction including right lower quadrant abdominal pain and ileitis with ascending colitis. Patient had increase in abdominal pain and abdominal distention and required NG tube to be placed on Sunday. Patient reporting improvement in his pain and distention. He did pass a small amount of flatus. No bowel movement. NG tube with 450 mL output through the night. He had PICC line placed and is starting on TPN for nutrition support. Afebrile. Creatinine 1.13 PHYSICAL EXAM: VITAL SIGNS: Reviewed GENERAL: Well-developed in no acute distress. HEENT: No sclera icterus. Extraocular movements grossly intact. Moist buccal mucosa. Head is atraumatic, normocephalic. Hears conversational speech. No nasal drainage. NECK: Supple without lymphadenopathy. CHEST: Non-labored respirations and equal bilateral excursions. CARDIOVASCULAR: Palpable 2+ radial pulses. ABDOMEN: Distended but softer than admission. Mild tenderness to palpation in right lower abdomen MUSCULOSKELETAL: No clubbing or cyanosis. NEUROLOGIC: No focal or lateralizing signs. Cranial nerves II through XII grossly intact. PSYCH: Appropriate affect. Alert and oriented to person, place and time. SKIN: Well perfused. Good skin turgor. ASSESSMENT: 1. Abnormal computed tomography scan for inflammation ileitis, colitis 2. Abdominal pain 3. Inflammatory bowel disease, cannot be excluded 4. Bowel obstruction. PLAN: -Computed tomography scan abdomen and pelvis with oral and IV contrast ordered for further evaluation of patient's abdominal pain and ileitis -Continue NG tube for decompression -Keep patient nothing by mouth except for ice chips -Discussed case with GI service GLASS TECHNICIAN. We'll await their recommendations regarding possible steroids -Continue to monitor closely -Continue IV fluids -Continue pain medication as needed -Continue antibiotics Physician Coal Passer note has been reviewed by physician. Signing provider agrees with the documented findings, assessment, and plan of care. Objective - Vital Signs Vital signs: Vital Signs Temp 98.3 F 05/02/21 08:00 Pulse 85 05/02/21 08:00 Resp 16 05/02/21 08:00 BP 176/93 05/02/21 08:00 Pulse Ox 93 L 05/02/21 08:00 Intake & Output 05/01/21 05/02/21 05/02/21 18:59 06:59 18:59 Intake Total 1080 Output Total 500 Balance -500 1080 Weight 97.522 kg Intake: Oral 1080 Output: Gastric Drainage 200 Urine 300 Other: Voiding Method Toilet Toilet Urinal Urinal # Voids 3 5 - Labs CBC & Chem 7: 05/01/21 04:32 05/02/21 03:37 Labs: Abnormal Lab Results - Last 24 Hours (Table) 05/02/21 05/02/21 05/02/21 Range/Units 03:37 03:37 03:37 PT 12.9 H (9.0-12.0) sec INR 1.2 H (<1.2) Chloride 111 H (98-107) mmol/L Carbon Dioxide 21 L (22-30) mmol/L Albumin 2.7 L (3.5-5.0) g/dL Microbiology - Last 24 Hours (Table) 04/25/21 16:30 Blood Culture - Final Blood No Growth after 144 hours 04/25/21 16:50 Blood Culture - Final Blood No Growth after 144 hours
--- NOTE | 2021-05-02 15:59 | CT ---
EXAMINATION TYPE: CT abdomen pelvis w con DATE OF EXAM: 05/02/2021 COMPARISON: CT 04/25/2021 HISTORY: Abdominal pain and distention. CT DLP: 1654.4 mGycm Automated exposure control for dose reduction was used. TECHNIQUE: Helical acquisition of images from the lung bases through the pelvis have been completed. CONTRAST: Performed with Oral Contrast and with IV Contrast, patient injected with 100 mL of Isovue 300. FINDINGS: LUNG BASES: There is a small right pleural effusion and associated atelectasis suspected similar to p rior, the effusion is slightly increased. AORTA: No significant abnormality is appreciated. LIVER/GB: No significant interval change is appreciated. PANCREAS: No significant abnormality is seen. SPLEEN: No significant abnormality is seen. ADRENALS: No significant abnormality is seen. KIDNEYS: No significant double change is seen, contrast present within the renal collecting systems. REPRODUCTIVE ORGANS: No interval change, there is prostate enlargement. BOWEL: There is inflammatory change present within the right paracolic gutter and mesenteric fat. Th e appendix is thought to be inflamed as well as distended, axial image #69, coronal images #42 throug h 48. Small periappendiceal abscess measures 3.9 x 3 x 2 cm is present. Additional fluid tracks super iorly along the right paracolic gutter There are findings of ileus within the bowel as noted on prior exam. Contrast has not coursed entirely through the bowel. There may is a small bowel lipoma present at the level of the uncinate process. FREE AIR: No Free Air visible. ASCITES: None visible. PELVIC ADENOPATHY: None visualized. RETROPERITONEAL ADENOPATHY: No Retroperitoneal Adenopathy visible. URINARY BLADDER: No significant abnormality is seen. OSSEOUS STRUCTURES: No significant abnormality is seen. IMPRESSION: APPENDICITIS, THERE IS ASSOCIATED PHLEGMON WITHIN THE RIGHT LOWER QUADRANT WELL SMALL PERIAPPEN DICEAL ABSCESS. REPORT RELAYED TO MARIA DE JESUS AT THE TIME OF INTERPRETATION.
[2021-05-02] MEDS ORDERED: MVI, ADULT NO.4 WITH VIT K 10 ML, TRACE (CONC-1ML/DOSE) 1 ML, PARENTERAL ELECTROLYTES 2... IV ONE ×4 (16:00)
--- NOTE | 2021-05-02 16:19 | P.PN ---
Progress Note - Text Progress Note Date: 05/02/21 Hospital course: Patient admitted with abdominal pain. Found to mechanical small bowel obstruct ion. NG tube was placed Pepe the patient pointed out in the middle of the night. April 27: Patient denies chest. Abdomen distended. Abdominal pain present. Last bowel movement was 4 days ago. No nausea vomiting. X-ray showing increasing dilatations of bowel. Patient was later seen by general surgery mancini and reinsertion of NG tube. No BM. No flatus. On IV Levaquin and Flagyl. April 28: Patient had a small BM. Some flatus. Has been out of bed. No nausea vomiting. Improvement in abdominal pain. Diet advanced to clear liquids by surgery. Abdominal x-ray still showing significant bowel dilatation. April 29: Patient still has some abdominal pain. He describes about 8 inch long BM. Dark in color. No nausea vomiting. Surgery earlier downgraded patient's diet to ice chips. Has been up to the bathroom. Abdomen still distended April 30: NG tube was placed last night. Abdominal distention. Some flatus. Abdominal discomfort. No nausea vomiting. Abdominal x-ray from last night showing significant small bowel obstruction. May 01: NG tube to suction. Abdominal pain present. at the bedside. No nausea vomiting. Has been passing some flatus. Start the patient on TPN and lipids after getting a PICC line May 02: PICC line today. NG tube to suction. Some improvement in abdominal pain. Positive some flatus. TPN and lipids being started. Computed tomography scan shows inflamed appendix, small periappendiceal abscess 3.9 x 3.2 cm findings of ileus. Surgery GI following. Active Medications Acetaminophen (Acetaminophen Tab 325 Mg Tab) 325 mg PO Q6HR PRN PRN Reason: Fever and/ or Pain Last Admin: 04/30/21 20:22 Dose: 325 mg Documented by: Albuterol Sulfate (Albuterol Hfa Inhaler) 2 puff INHALATION RT-Q4H PRN PRN Reason: Shortness Of Breath Hydromorphone HCl (Hydromorphone 1 Mg/Ml 1 Ml Syringe) 1 mg IVP Q3HR PRN PRN Reason: Moderate to Severe Pain Last Admin: 05/02/21 13:32 Dose: 1 mg Documented by: Metronidazole 500 mg/ IV (Solution) 100 mls @ 100 mls/hr IVPB Q8HR HUSAM Last Admin: 05/02/21 09:25 Dose: 100 mls/hr Documented by: Levofloxacin 500 mg/ IV (Solution) 100 mls @ 100 mls/hr IVPB Q24H [facility] Last Admin: 05/02/21 12:36 Dose: 100 mls/hr Documented by: Sodium Chloride (Saline 0.9%) 1,000 mls @ 130 mls/hr IV .Q7H42M [facility] Last Admin: 05/02/21 08:39 Dose: Not Given Documented by: Parenteral Vitamin Supplement 10 ml/ Zinc/Copper/Manganese/Selenium 1 ml/ Parenteral Electrolytes 20 ml/ Amino Acids/Dextrose 1,031 mls @ 30 mls/hr IV .Q24H ONE Stop: 05/03/21 15:59 Parenteral Vitamin Supplement 10 ml/ Zinc/Copper/Manganese/Selenium 1 ml/ Parenteral Electrolytes 20 ml/ Amino Acids/Dextrose 1,031 mls @ 85 mls/hr IV .BY DURATION [facility] Parenteral Electrolytes 20 ml/ (Amino Acids/Dextrose) 1,020 mls @ 85 mls/hr IV .BY DURATION [facility] Fat Emulsion Intravenous 500 (ml/ IV Solution) 500 mls @ 42 mls/hr IV Mo [facility] Lisinopril (Lisinopril 10 Mg Tab) 10 mg PO DAILY [facility] Last Admin: 05/02/21 09:24 Dose: 10 mg Documented by: Metoprolol Tartrate (Metoprolol Tartrate 25 Mg Tab) 25 mg PO BID [facility] Last Admin: 05/02/21 09:24 Dose: 25 mg Documented by: Naloxone HCl (Naloxone 0.4 Mg/Ml 1 Ml Vial) 0.2 mg IV Q2M PRN PRN Reason: Opioid Reversal Ondansetron HCl (Ondansetron 4 Mg/2 Ml Vial) 4 mg IVP Q8HR PRN PRN Reason: Nausea And Vomiting Last Admin: 04/30/21 18:00 Dose: 4 mg Documented by: Pantoprazole Sodium (Pantoprazole 40 Mg/10 Ml Vial) 40 mg IVP DAILY [facility] Last Admin: 05/02/21 09:24 Dose: 40 mg Documented by: Pramipexole Dihydrochloride (Pramipexole 1 Mg Tab) 1.5 mg PO HS@1900 [facility] Last Admin: 05/01/21 18:27 Dose: 1.5 mg Documented by: Sodium Chloride (Sodium Chloride 0.9% Flush 10 Ml Syringe) 10 ml IV Q4HR PRN PRN Reason: PICC Line Sodium Chloride (Sodium Chloride 0.9% Flush 10 Ml Syringe) 10 ml IV WEEKLY [facility] Sodium Chloride (Sodium Chloride 0.9% Flush 10 Ml Syringe) 20 ml IV Q4HR PRN PRN Reason: PICC Line Tamsulosin HCl (Tamsulosin 0.4 Mg Cap.Er.24h) 0.4 mg PO HS [facility] Last Admin: 05/01/21 19:28 Dose: 0.4 mg Documented by: On examination: VITAL SIGNS: 98.7, 94, 18, 168.96, 92% room air GENERAL APPEARANCE: Reclining in bed, awake, HEENT: Normal external appearance of nose and ear. NG tube to intermittent suction EYES: Pupils equal. Conjunctiva normal. NECK: JVD not raised. Mass not palpable. RESPIRATORY: Respiratory effort normal. Lungs clear to auscultation. CARDIOVASCULAR: First and second sounds normal. No edema. ABDOMEN: Distended, some tenderness hyperactive bowel sounds Liver and spleen not palpable. No tenderness. No mass palpable. PSYCHIATRY: Alert and oriented x3. Mood and affect normal. INVESTIGATIONS, reviewed in the clinical context: May 02: Potassium 4.3 creatinine 1.13 Computed tomography scan of the abdomen and pelvis [April 24]: Right lower quadrant abscess/inflamed appendix associated with appendix May 01: White count 11.9 hemoglobin 12.8 potassium 4.4 creatinine 1.1 April 29: White count 9.3 hemoglobin 11.7 platelets 477. Pro-calcitonin 0.95 April 28: White count 9.9 hemoglobin 12 platelets 523. Abdominal x-ray shows diffusely dilated small bowel loops with air-fluid levels. Slight improvement. White count 13.5 hemoglobin 12.2 platelets 502 potassium 4.4 creatinine 1.2 CRP 29.8 procalcitonin 2.5 for Abdominal x-ray film personally reviewed by me dilated loops of bowel Computed tomography scan of the abdomen pelvis: Moderate inflammatory changes the right lower quadrant stopped and currently involving the distal ileum colon. Assessment and plan: -Acute appendicitis with associated phlegmon abscess IV Levaquin, IV Flagyl. Been followed by surgery -Acute small bowel obstruction: Not improving Continue NG tube suction -Paroxysmal Atrial fibrillation, currently in sinus rhythm On telemetry -Hyperlipidemia Crestor 5 mg by mouth Sunday -Essential hypertension Lisinopril 10 mg a day -Osteoarthritis, primary -Restless leg syndrome Mirapex 1.5 mg by mouth daily at bedtime -BPH Flomax 0.4 mg daily at bedtime IV Levaquin and Flagyl. NG tube to intermittent suction. PICC line with TPN and lipids started today. Surgery Dr. Pinedo to follow up with the results of computed tomography scan. Earlier spoke to the patient.
--- NOTE | 2021-05-02 17:47 | P.PN ---
Subjective Progress Note Date: 05/02/21 Principal diagnosis: Abdominal pain Patient is seen as follow-up. He was admitted with leukocytosis ileitis and a small bowel obstruction. The patient states abdominal pain remains pretty consistent. He is distended he has an NG tube in place. He had approximately 300 miles out through the night. He denies any nausea or vomiting. He is passing gas, but no bowel movement. His been afebrile Objective - Vital Signs Vital signs: Vital Signs Temp 98.3 F 05/02/21 08:00 Pulse 85 05/02/21 08:00 Resp 16 05/02/21 08:00 BP 176/93 05/02/21 08:00 Pulse Ox 93 L 05/02/21 08:00 Intake & Output 05/01/21 05/02/21 05/02/21 18:59 06:59 18:59 Output Total 500 Balance -500 Weight 97.522 kg Output: Gastric Drainage 200 Urine 300 Other: Voiding Method Toilet Toilet Urinal Urinal # Voids 3 5 - Exam General appearance: The patient is alert, oriented, appears in no acute distress. HET: Head is normocephalic and atraumatic. Conjunctiva pink. Sclera anicteric. NG tube in place Neck: Supple without lymphadenopathy. Abdomen: Soft, diffuse tenderness, greatest in right lower abdomen, distended. No guarding or rigidity. Extremities: Normal skin color and turgor. No pedal edema Skin: No rashes, no jaundice Neurological: No focal deficits. Alert and oriented x3. - Labs CBC & Chem 7: 05/01/21 04:32 05/02/21 03:37 Labs: Abnormal Lab Results - Last 24 Hours (Table) 05/02/21 05/02/21 Range/Units 03:37 03:37 PT 12.9 H (9.0-12.0) sec INR 1.2 H (<1.2) Chloride 111 H (98-107) mmol/L Carbon Dioxide 21 L (22-30) mmol/L Microbiology - Last 24 Hours (Table) 04/25/21 16:30 Blood Culture - Final Blood No Growth after 144 hours 04/25/21 16:50 Blood Culture - Final Blood No Growth after 144 hours Assessment and Plan (1) Abdominal pain Narrative/Plan: A 70-year-old female who presented to the emergency department with complaints of abdominal pain which started approximately 2 weeks ago. Predominantly in the right lower quadrant and not associated with any nausea, vomiting, diarrhea or fever. States his last bowel movement was 2-3 days ago. Denies any previous history of Crohn's disease or colitis. His colonoscopy approximately 5 years ago which he states was overall normal other than colon polyp. He was positive for COVID-19 infection earlier this month. Negative at this time. He had a CT of the abdomen showing moderate inflammatory changes in the right lower quadrant distal ileum/colon. Appendicitis cannot be ruled out. He did have elevated inflammatory markers as well as evidence of leukocytosis. He's been afebrile. Likely infectious etiology however ischemic cannot be ruled out. Will start patient on IV antibiotics. Await recommendations from general surgery. No perla ns on colonoscopy at this time. Patient underwent CT of abdomen, await results. Continue with recommendations from general surgery Current Visit: Yes Status: Acute Code(s): R10.9 - UNSPECIFIED ABDOMINAL PAIN SNOMED Code(s): 68194474 (2) Leukocytosis Current Visit: Yes Status: Acute Code(s): D72.829 - ELEVATED WHITE BLOOD CELL COUNT, UNSPECIFIED SNOMED Code(s): 100873735 (3) Small bowel obstruction Narrative/Plan: Gen. surgery following closely, NG tube placed Current Visit: Yes Status: Acute Code(s): K56.609 - UNSP INTESTNL OBST, UNSP TO PARTIAL VERSUS COMPLETE OBST SNOMED Code(s): 879351588 Plan: 1. Continue symptomatic and supportive care 2. Diet Per surgical recommendations 3. Continue Flagyl and Levaquin 4. Protonix for GI prophylaxis 5. Continue with recommendations from general surgery 6. No plans on endoscopic evaluation from gastroenterology at this time Thank you for this consultation, we will continue to follow. Dr. Kaylin Mg I agree with the dictator's note, documented as a scribe by Meghan Villafuerte.
[2021-05-02] MEDS ORDERED: FAT EMULSION 20% 500 ML in EMPTY BAG 1 BAG IV SCH (18:00)
[2021-05-02 19:55] LABS: Triglycerides 89.5 mg/dL (0.00-149.00)
[2021-05-02] MEDS: PRAMIPEXOLE 1 MG TAB PO SCH (20:48)
[2021-05-02] MEDS: TAMSULOSIN 0.4 MG CAP.ER.24H PO SCH (20:48)
[2021-05-02] MEDS: ACETAMINOPHEN TAB 325 MG TAB PO PRN (23:19)
[2021-05-03] MEDS: HYDROmorphone 1 MG/ML 1 ML SYRINGE IVP PRN ×5 (00:03→21:24)
[2021-05-03 05:35] LABS: Ionized Calcium 5.3 mg/dL (4.5-5.3)
[2021-05-03 05:42] LABS: ALT 45 U/L (4-49); AST 39 U/L (17-59); African American GFR (CKD) 87 (>60 ml/min/1.73 sqM); Albumin 2.6 g/dL (3.5-5.0); Alkaline Phosphatase 85 U/L (38-126); Anion Gap 6 mmol/L; Blood Urea Nitrogen 11 mg/dL (9-20); Calcium 8.4 mg/dL (8.4-10.2); Carbon Dioxide 23 mmol/L (22-30); Chloride 113 mmol/L (98-107); Globulin 2.6 g/dL; Glucose 147 mg/dL (74-99); Magnesium 2.3 mg/dL (1.6-2.3); Non-African American GFR(CKD) 75 (>60 ml/min/1.73 sqM); Phosphorus 3.8 mg/dL (2.5-4.5); Potassium 3.6 mmol/L (3.5-5.1); Sodium 142 mmol/L (137-145); Total Bilirubin 0.6 mg/dL (0.2-1.3); Total Protein 5.2 g/dL (6.3-8.2)
[2021-05-03 06:52] LABS: Glucose,Whole Blood 134 mg/dL (75-99)
[2021-05-03] MEDS: SODIUM CHLORIDE 0.9% 1,000 ML IV SCH ×3 (07:07→14:06)
[2021-05-03] MEDS: lisinopriL 10 MG TAB PO SCH (09:43)
[2021-05-03] MEDS: METOPROLOL TARTRATE 25 MG TAB PO SCH ×2 (09:43→21:23)
[2021-05-03] MEDS: metroNIDAZOLE-NS PMX 500 MG in SALINE 1 100ML.BAG IVPB SCH (09:44)
[2021-05-03] MEDS: PANTOPRAZOLE 40 MG/10 ML VIAL IVP SCH (09:44)
--- NOTE | 2021-05-03 10:06 | P.GSCN ---
History of Present Illness Consult date: 05/03/21 Reason for Consult: abdominal abscess History of present illness: I was asked to review patient ct for possible abscess drainage. Small abscess noted not suitable for percutaneous drainage. Defer to surgical management Past Medical History Past Medical History: Atrial Fibrillation, Cancer, Hyperlipidemia, Hypertension Additional Past Medical History / Comment(s): arthritis, skin cancer, one episode of A-Fib, History of Any Multi-Drug Resistant Organisms: None Reported Past Surgical History: Orthopedic Surgery Additional Past Surgical History / Comment(s): vasectomy, removal of skin cancer from face,rotator cuff repair feb 11 Past Anesthesia/Blood Transfusion Reactions: No Reported Reaction Past Psychological History: No Psychological Hx Reported Smoking Status: Never smoker Past Alcohol Use History: Rare Past Drug Use History: None Reported - Past Family History Father Family Medical History: Cancer Mother Family Medical History: Cancer Medications and Allergies Home Medications Medication Instructions Recorded Confirmed Type Aspirin 81 mg PO DAILY 02/10/14 04/25/21 History Metoprolol Tartrate 25 mg PO BID 02/10/14 04/25/21 History Albuterol Inhaler [Ventolin Hfa 2 puff INHALATION RT-Q4H PRN 04/25/21 04/25/21 History Inhaler] Alfuzosin HCl [Alfuzosin HCl ER] 10 mg PO HS 04/25/21 04/25/21 History Lisinopril [Zestril] 10 mg PO DAILY 04/25/21 04/25/21 History Methylphenidate HCl 36 mg PO DAILY 04/25/21 04/25/21 History [Methylphenidate HCl ER] Multivitamins, Thera [Multivitamin 1 tab PO DAILY 04/25/21 04/25/21 History (formulary)] Pramipexole [Mirapex] 1.5 mg PO HS@1900 04/25/21 04/25/21 History Rosuvastatin Calcium [Crestor] 5 mg PO MOWEFR 04/25/21 04/25/21 History Allergies Allergy/AdvReac Type Severity Reaction Status Date / Time No Known Allergies Allergy Verified 04/25/21 17:29 Surgical - Exam Vital Signs Temp Pulse Resp BP Pulse Ox 98.2 F 110 H 20 107/67 95 04/25/21 13:58 04/25/21 13:58 04/25/21 13:58 04/25/21 13:58 04/25/21 13:58 Results - Labs 05/01/21 04:32 05/03/21 05:05 Abnormal Lab Results - Last 24 Hours (Table) 05/02/21 05/03/21 05/03/21 Range/Units 03:37 05:05 06:51 Chloride 113 H (98-107) mmol/L Glucose 147 H (74-99) mg/dL POC Glucose (mg/dL) 134 H (75-99) mg/dL Total Protein 5.2 L (6.3-8.2) g/dL Albumin 2.7 L 2.6 L (3.5-5.0) g/dL Diabetes panel 05/02/21 05/03/21 Range/Units 03:37 05:05 Sodium 142 (137-145) mmol/L Potassium 3.6 (3.5-5.1) mmol/L Chloride 113 H (98-107) mmol/L Carbon Dioxide 23 (22-30) mmol/L BUN 11 (9-20) mg/dL Creatinine 1.00 (0.66-1.25) mg/dL Glucose 147 H (74-99) mg/dL Calcium 8.4 (8.4-10.2) mg/dL AST 39 (17-59) U/L ALT 45 (4-49) U/L Alkaline Phosphatase 85 (38-126) U/L Total Protein 5.2 L (6.3-8.2) g/dL Albumin 2.7 L 2.6 L (3.5-5.0) g/dL Triglycerides 89.50 (0.00-149.00) mg/dL Calcium panel 05/02/21 05/03/21 Range/Units 03:37 05:05 Calcium 8.4 (8.4-10.2) mg/dL Ionized Calcium [place] 5.3 (4.5-5.3) mg/dL Phosphorus 4.2 3.8 (2.5-4.5) mg/dL Albumin 2.7 L 2.6 L (3.5-5.0) g/dL Pituitary panel 05/03/21 Range/Units 05:05 Sodium 142 (137-145) mmol/L Potassium 3.6 (3.5-5.1) mmol/L Chloride 113 H (98-107) mmol/L Carbon Dioxide 23 (22-30) mmol/L BUN 11 (9-20) mg/dL Creatinine 1.00 (0.66-1.25) mg/dL Glucose 147 H (74-99) mg/dL Calcium 8.4 (8.4-10.2) mg/dL Adrenal panel 05/02/21 05/03/21 Range/Units 03:37 05:05 Sodium 142 (137-145) mmol/L Potassium 3.6 (3.5-5.1) mmol/L Chloride 113 H (98-107) mmol/L Carbon Dioxide 23 (22-30) mmol/L BUN 11 (9-20) mg/dL Creatinine 1.00 (0.66-1.25) mg/dL Glucose 147 H (74-99) mg/dL Calcium 8.4 (8.4-10.2) mg/dL Total Bilirubin 0.6 (0.2-1.3) mg/dL AST 39 (17-59) U/L ALT 45 (4-49) U/L Alkaline Phosphatase 85 (38-126) U/L Total Protein 5.2 L (6.3-8.2) g/dL Albumin 2.7 L 2.6 L (3.5-5.0) g/dL
[2021-05-03 11:29] LABS: Glucose,Whole Blood 108 mg/dL (75-99)
[2021-05-03] MEDS: PIPERACILLIN-TAZOBACTAM 3.375 GM in SODIUM CHLORIDE 0.9% 100 ML IVPB SCH ×2 (14:06→21:23)
--- NOTE | 2021-05-03 15:22 | P.PN ---
Subjective Progress Note Date: 05/03/21 Principal diagnosis: Abdominal pain Patient is seen as follow-up. He was admitted with leukocytosis ileitis and a small bowel obstruction. The patient states abdominal pain remains pretty consistent. His NG tube remains in place. He still has some abdominal distention. CT of the abdomen was repeated yesterday showing appendicitis. Gen. surgery continues to follow. They consulted infectious disease. Patient states he's had 3 bowel movements today. No nausea or vomiting. He's been afebrile. Objective - Vital Signs Vital signs: Vital Signs Temp 98.1 F 05/03/21 14:00 Pulse 70 05/03/21 14:00 Resp 18 05/03/21 14:00 BP 155/92 05/03/21 14:00 Pulse Ox 93 L 05/03/21 14:00 Intake & Output 05/02/21 05/03/21 05/03/21 18:59 06:59 18:59 Intake Total 1080 Output Total 150 Balance 1080 -150 Weight 97.522 kg 97.522 kg Intake: Oral 1080 Output: Post Void Residual 150 Other: Voiding Method Toilet Toilet Urinal Urinal # Voids 4 4 # Bowel Movements 3 - Exam General appearance: The patient is alert, oriented, appears in no acute distress. HET: Head is normocephalic and atraumatic. Conjunctiva pink. Sclera anicteric. NG tube in place Neck: Supple without lymphadenopathy. Abdomen: Soft, diffuse tenderness, greatest in right lower abdomen, distended. No guarding or rigidity. Extremities: Normal skin color and turgor. No pedal edema Skin: No rashes, no jaundice Neurological: No focal deficits. Alert and oriented x3. - Labs CBC & Chem 7: 05/01/21 04:32 05/03/21 05:05 Labs: Abnormal Lab Results - Last 24 Hours (Table) 05/03/21 05/03/21 05/03/21 Range/Units 05:05 06:51 11:27 Chloride 113 H (98-107) mmol/L Glucose 147 H (74-99) mg/dL POC Glucose (mg/dL) 134 H 108 H (75-99) mg/dL Total Protein 5.2 L (6.3-8.2) g/dL Albumin 2.6 L (3.5-5.0) g/dL Assessment and Plan (1) Abdominal pain Narrative/Plan: A 70-year-old female who presented to the emergency department with complaints of abdominal pain which started approximately 2 weeks ago. Predominantly in the right lower quadrant and not associated with any nausea, vomiting, diarrhea or fever. States his last bowel movement was 2-3 days ago. Denies any previous history of Crohn's disease or colitis. His colonoscopy approximately 5 years ago which he states was overall normal other than colon polyp. He was positive for COVID-19 infection earlier this month. Negative at this time. He had a CT of the abdomen showing moderate inflammatory changes in the right lower quadrant distal ileum/colon. Appendicitis cannot be ruled out. He did have elevated inflammatory markers as well as evidence of leukocytosis. He's been afebrile. Likely infectious etiology however ischemic cannot be ruled out. Will start patient on IV antibiotics. Await recommendations from general surgery. No plans on colonoscopy at this time. Patient underwent CT of abdomen, now showing appendicitis. Continue with recommendations from general surgery Current Visit: Yes Status: Acute Code(s): R10.9 - UNSPECIFIED ABDOMINAL PAIN SNOMED Code(s): 23660162 (2) Leukocytosis Current Visit: Yes Status: Acute Code(s): D72.829 - ELEVATED WHITE BLOOD CELL COUNT, UNSPECIFIED SNOMED Code(s): 630130894 (3) Small bowel obstruction Current Visit: Yes Status: Acute Code(s): K56.609 - UNSP INTESTNL OBST, UNSP TO PARTIAL VERSUS COMPLETE OBST SNOMED Code(s): 524019957 Plan: 1. Continue symptomatic and supportive care 2. Continue with recommendations from general surgery Thank you for this consultation, we will sign off at this time. Please do not hesitate to call us back if patient has any further GI needs Dr. Kaylin Mg I agree with the dictator's note, documented as a scribe by Meghan Villafuerte.
--- NOTE | 2021-05-03 15:26 | P.PN ---
Subjective Progress Note Date: 05/03/21 CHIEF COMPLAINT: Abdominal pain HISTORY OF PRESENT ILLNESS: The patient is a 70 year old male admitted due to bowel obstruction including right lower quadrant abdominal pain and ileitis with ascending colitis. Patient's repeat CAT scan shows appendicitis. There is associated phlegmon with right lower quadrant as well as small periappendiceal abscess. CAT scan reviewed by Dr. Loving. Also patient evaluated by interventional radiology and abscess is not a drainable size. Patient reports that he had 3 bowel movements to the evening he is having flatus. Patient still reports some right lower quadrant abdominal discomfort. Afebrile. Antibiotics adjusted by infectious disease. PHYSICAL EXAM: VITAL SIGNS: Reviewed GENERAL: Well-developed in no acute distress. HEENT: No sclera icterus. Extraocular movements grossly intact. Moist buccal mucosa. Head is atraumatic, normocephalic. Hears conversational speech. No nasal drainage. NECK: Supple without lymphadenopathy. CHEST: Non-labored respirations and equal bilateral excursions. CARDIOVASCULAR: Palpable 2+ radial pulses. ABDOMEN: Distended but softer than admission. Mild tenderness to palpation in right lower abdomen MUSCULOSKELETAL: No clubbing or cyanosis. NEUROLOGIC: No focal or lateralizing signs. Cranial nerves II through XII grossly intact. PSYCH: Appropriate affect. Alert and oriented to person, place and time. SKIN: Well perfused. Good skin turgor. ASSESSMENT: 1. Appendicitis with phlegmon and small periappendiceal abscess 2. Abnormal computed tomography scan for inflammation ileitis, colitis 3. Abdominal pain 4. Inflammatory bowel disease, cannot be excluded 5. Bowel obstruction Noted On previous computed tomography scan now showed improvement PLAN: -Discontinue NG tube -Start ice chips and popsicles -No surgical intervention planned. Recommend to continue antibiotics. -Antibiotics per ID service -Continue to monitor closely -Continue IV fluids -Continue pain medication as needed Physician Perfect Binder Operator note has been reviewed by physician. Signing provider agrees with the documented findings, assessment, and plan of care. Objective - Vital Signs Vital signs: Vital Signs Temp 98.1 F 05/03/21 14:00 Pulse 70 05/03/21 14:00 Resp 18 05/03/21 14:00 BP 155/92 05/03/21 14:00 Pulse Ox 93 L 05/03/21 14:00 Intake & Output 05/02/21 05/03/21 05/03/21 18:59 06:59 18:59 Intake Total 1080 Output Total 150 Balance 1080 -150 Weight 97.522 kg 97.522 kg Intake: Oral 1080 Output: Post Void Residual 150 Other: Voiding Method Toilet Toilet Urinal Urinal # Voids 4 4 # Bowel Movements 3 - Labs CBC & Chem 7: 05/01/21 04:32 05/03/21 05:05 Labs: Abnormal Lab Results - Last 24 Hours (Table) 05/03/21 05/03/21 05/03/21 Range/Units 05:05 06:51 11:27 Chloride 113 H (98-107) mmol/L Glucose 147 H (74-99) mg/dL POC Glucose (mg/dL) 134 H 108 H (75-99) mg/dL Total Protein 5.2 L (6.3-8.2) g/dL Albumin 2.6 L (3.5-5.0) g/dL
[2021-05-03 16:38] LABS: Glucose,Whole Blood 141 mg/dL (75-99)
[2021-05-03] MEDS: SODIUM ACETATE IV SCH ×7 (18:16)
[2021-05-03] MEDS: [UNRECOGNIZED DRUG - OTHER] IV SCH ×7 (18:16)
[2021-05-03] MEDS: POTASSIUM PHOSPHATE IV SCH ×7 (18:16)
[2021-05-03] MEDS: MAGNESIUM SULFATE IV SCH ×7 (18:16)
[2021-05-03] MEDS: TAMSULOSIN 0.4 MG CAP.ER.24H PO SCH (21:23)
[2021-05-03] MEDS: PRAMIPEXOLE 1 MG TAB PO SCH (21:24)
--- NOTE | 2021-05-03 22:37 | P.PN ---
Progress Note - Text Progress Note Date: 05/03/21 Hospital course: Patient admitted with abdominal pain. Found to mechanical small bowel obstruct ion. NG tube was placed Pepe the patient pointed out in the middle of the night. April 27: Patient denies chest. Abdomen distended. Abdominal pain present. Last bowel movement was 4 days ago. No nausea vomiting. X-ray showing increasing dilatations of bowel. Patient was later seen by general surgery mancini and reinsertion of NG tube. No BM. No flatus. On IV Levaquin and Flagyl. April 28: Patient had a small BM. Some flatus. Has been out of bed. No nausea vomiting. Improvement in abdominal pain. Diet advanced to clear liquids by surgery. Abdominal x-ray still showing significant bowel dilatation. April 29: Patient still has some abdominal pain. He describes about 8 inch long BM. Dark in color. No nausea vomiting. Surgery earlier downgraded patient's diet to ice chips. Has been up to the bathroom. Abdomen still distended April 30: NG tube was placed last night. Abdominal distention. Some flatus. Abdominal discomfort. No nausea vomiting. Abdominal x-ray from last night showing significant small bowel obstruction. May 01: NG tube to suction. Abdominal pain present. at the bedside. No nausea vomiting. Has been passing some flatus. Start the patient on TPN and lipids after getting a PICC line May 02: PICC line today. NG tube to suction. Some improvement in abdominal pain. Positive some flatus. TPN and lipids being started. Computed tomography scan shows inflamed appendix, small periappendiceal abscess 3.9 x 3.2 cm findings of ileus. Surgery GI following. May 03: NG tube to suction remains in place. Abdomen distended. Lower abdominal pain. Per interventional radiology abscess small for them to going. Getting TPN and lipids. Discussed with the patient about continuation of antibiotics for the present time. Further decision as per surgery. Active Medications Acetaminophen (Acetaminophen Tab 325 Mg Tab) 325 mg PO Q6HR PRN PRN Reason: Fever and/ or Pain Last Admin: 05/02/21 23:19 Dose: 325 mg Documented by: Albuterol Sulfate (Albuterol Hfa Inhaler) 2 puff INHALATION RT-Q4H PRN PRN Reason: Shortness Of Breath Hydromorphone HCl (Hydromorphone 1 Mg/Ml 1 Ml Syringe) 1 mg IVP Q3HR PRN PRN Reason: Moderate to Severe Pain Last Admin: 05/03/21 21:24 Dose: 1 mg Documented by: Sodium Chloride (Saline 0.9%) 1,000 mls @ 130 mls/hr IV .Q7H42M [facility] Last Admin: 05/03/21 14:06 Dose: 130 mls/hr Documented by: Sodium Acetate 30 meq/Potassium Phosphate 20 mmol/Magnesium Sulfate 1 gm/Calcium Gluconate 1 gm/Parenteral Vitamin Supplement 10 ml/ Zinc/Copper/Manganese/Kamila nium 1 ml/ Amino Acids/Dextrose 1,044.6667 mls @ 100 mls/hr IV .BY DURATION [facility] Sodium Acetate 30 meq/Potassium Phosphate 20 mmol/Magnesium Sulfate 1 gm/Calcium Gluconate 1 gm/ Amino Acids/Dextrose 1,033.6667 mls @ 100 mls/hr IV .BY DURATION [facility] Last Admin: 05/03/21 18:16 Dose: 100 mls/hr Documented by: Fat Emulsion Intravenous 500 (ml/ IV Solution) 500 mls @ 42 mls/hr IV Mo [facility] Last Admin: 05/02/21 17:14 Dose: 42 mls/hr Documented by: Piperacillin Sod/Tazobactam (Sod 3.375 gm/ Sodium Chloride) 100 mls @ 25 mls/hr IVPB Q8H [facility]; Protocol Last Admin: 05/03/21 21:23 Dose: 25 mls/hr Documented by: Lisinopril (Lisinopril 10 Mg Tab) 10 mg PO DAILY [facility] Last Admin: 05/03/21 09:43 Dose: 10 mg Documented by: Metoprolol Tartrate (Metoprolol Tartrate 25 Mg Tab) 25 mg PO BID [facility] Last Admin: 05/03/21 21:23 Dose: 25 mg Documented by: Naloxone HCl (Naloxone 0.4 Mg/Ml 1 Ml Vial) 0.2 mg IV Q2M PRN PRN Reason: Opioid Reversal Ondansetron HCl (Ondansetron 4 Mg/2 Ml Vial) 4 mg IVP Q8HR PRN PRN Reason: Nausea And Vomiting Last Admin: 04/30/21 18:00 Dose: 4 mg Documented by: Pantoprazole Sodium (Pantoprazole 40 Mg/10 Ml Vial) 40 mg IVP DAILY [facility] Last Admin: 05/03/21 09:44 Dose: 40 mg Documented by: Pramipexole Dihydrochloride (Pramipexole 1 Mg Tab) 1.5 mg PO HS@1900 [facility] Last Admin: 05/03/21 21:24 Dose: 1.5 mg Documented by: Sodium Chloride (Sodium Chloride 0.9% Flush 10 Ml Syringe) 10 ml IV Q4HR PRN PRN Reason: PICC Line Sodium Chloride (Sodium Chloride 0.9% Flush 10 Ml Syringe) 10 ml IV WEEKLY [facility] Sodium Chloride (Sodium Chloride 0.9% Flush 10 Ml Syringe) 20 ml IV Q4HR PRN PRN Reason: PICC Line Tamsulosin HCl (Tamsulosin 0.4 Mg Cap.Er.24h) 0.4 mg PO [facility] Last Admin: 05/03/21 21:23 Dose: 0.4 mg Documented by: On examination: VITAL SIGNS: 97.4, 85, 17, 160/93, 95% room air GENERAL APPEARANCE: Reclining in bed, awake, HEENT: Normal external appearance of nose and ear. NG tube to intermittent suction EYES: Pupils equal. Conjunctiva normal. NECK: JVD not raised. Mass not palpable. RESPIRATORY: Respiratory effort normal. Lungs clear to auscultation. CARDIOVASCULAR: First and second sounds normal. No edema. ABDOMEN: Distended, some tenderness hyperactive bowel sounds Liver and spleen not palpable. No tenderness. No mass palpable. PSYCHIATRY: Alert and oriented x3. Mood and affect normal. INVESTIGATIONS, reviewed in the clinical context: May 03: Sodium 142 potassium 3.6 creatinine 1.0 albumin 2.6 May 02: Potassium 4.3 creatinine 1.13 Computed tomography scan of the abdomen and pelvis [April 24]: Right lower quadrant abscess/inflamed appendix associated with appendix May 01: White count 11.9 hemoglobin 12.8 potassium 4.4 creatinine 1.1 April 29: White count 9.3 hemoglobin 11.7 platelets 477. Pro-calcitonin 0.95 April 28: White count 9.9 hemoglobin 12 platelets 523. Abdominal x-ray shows diffusely dilated small bowel loops with air-fluid levels. Slight improvement. White count 13.5 hemoglobin 12.2 platelets 502 potassium 4.4 creatinine 1.2 CRP 29.8 procalcitonin 2.5 for Abdominal x-ray film personally reviewed by me dilated loops of bowel Computed tomography scan of the abdomen pelvis: Moderate inflammatory changes the right lower quadrant stopped and currently involving the distal ileum colon. Assessment and plan: -Acute appendicitis with associated phlegmon abscess: Slow to respond IV Zosyn, IV Flagyl. Been followed by surgery -Acute small bowel obstruction: Not improving Continue NG tube suction -Paroxysmal Atrial fibrillation, currently in sinus rhythm On telemetry -Hyperlipidemia Crestor 5 mg by mouth Sunday -Essential hypertension Lisinopril 10 mg a day -Osteoarthritis, primary -Restless leg syndrome Mirapex 1.5 mg by mouth daily at bedtime -BPH Flomax 0.4 mg daily at bedtime -TPN and lipids started IV Zosyn and Flagyl. NG tube to intermittent suction. TPN and lipids. Surgery to make of further decision about surgical intervention to be candidate out. Discussed with patient at length.
--- NOTE | 2021-05-03 23:04 | P.CONS ---
History of Present Illness - Reason for Consult Consult date: 05/03/21 Appendicitis with abscess Requesting physician: Alice Sanches - Chief Complaint Abdominal pain 1 week - History of Present Illness Patient is a 70-year-old male presenting to the ER more than a week ago for evaluation of right lower quadrant abdominal pain that has been going on for about a week before presentation to the hospital patient was describing the pain progressively getting worse describes the pain to be sharp in nature and was almost 8 out of 10 by the time he presented to hospital patient did not have any fever nausea vomiting by the time he presented to hospital did have an episode of diarrhea before presentation to the hospital with the symptoms the patient has been evaluated by the ER physician on arrival to the ER patient did have a CT of abdominal pelvis which shows moderate inflammatory changes in the right lower quadrant. Very involving the distal ileum and colon patient did have a no fever during this hospital admission patient did have white count of 20,000 on admission subsequently his white count normalized however was slightly up to 11.93 as of no CBC has been done since then patient has been evaluated by GI and surgical services, patient did have a repeat CT of abdominal pelvis that was completed yesterday afternoon and it is showing appendicitis with associated phlegmon within the right lower quadrant as well as small periumbilical abscess infectious disease was consulted today for further management of antibiotic therapy, interventional radiology has commented a small abscess cannot be drained CT-guided Review of Systems Positive point has been mentioned in the HPI rest of the systems are negative Past Medical History Past Medical History: Atrial Fibrillation, Cancer, Hyperlipidemia, Hypertension Additional Past Medical History / Comment(s): arthritis, skin cancer, one episode of A-Fib, History of Any Multi-Drug Resistant Organisms: None Reported Past Surgical History: Orthopedic Surgery Additional Past Surgical History / Comment(s): vasectomy, removal of skin cancer from face,rotator cuff repair dec Past Anesthesia/Blood Transfusion Reactions: No Reported Reaction Past Psychological History: No Psychological Hx Reported Smoking Status: Never smoker Past Alcohol Use History: Rare Past Drug Use History: None Reported - Past Family History Father Family Medical History: Cancer Mother Family Medical History: Cancer Medications and Allergies Home Medications Medication Instructions Recorded Confirmed Type Aspirin 81 mg PO DAILY 02/10/14 04/25/21 History Metoprolol Tartrate 25 mg PO BID 02/10/14 04/25/21 History Albuterol Inhaler [Ventolin Hfa 2 puff INHALATION RT-Q4H PRN 04/25/21 04/25/21 History Inhaler] Alfuzosin HCl [Alfuzosin HCl ER] 10 mg PO HS 04/25/21 04/25/21 History Lisinopril [Zestril] 10 mg PO DAILY 04/25/21 04/25/21 History Methylphenidate HCl 36 mg PO DAILY 04/25/21 04/25/21 History [Methylphenidate HCl ER] Multivitamins, Thera [Multivitamin 1 tab PO DAILY 04/25/21 04/25/21 History (formulary)] Pramipexole [Mirapex] 1.5 mg PO HS@1900 04/25/21 04/25/21 History Rosuvastatin Calcium [Crestor] 5 mg PO MOWEFR 04/25/21 04/25/21 History Allergies Allergy/AdvReac Type Severity Reaction Status Date / Time No Known Allergies Allergy Verified 04/25/21 17:29 Physical Exam Vitals: Vital Signs Temp Pulse Resp BP Pulse Ox 05/03/21 07:57 97.4 F L 85 17 160/93 95 05/03/21 01:39 98.2 F 72 15 149/79 94 L 05/02/21 20:04 98.5 F 81 18 152/63 91 L 05/02/21 14:00 98.7 F 84 18 168/96 92 L Intake and Output 05/02/21 05/03/21 05/03/21 22:59 06:59 14:59 Other: Voiding Method Toilet Urinal # Voids 4 # Bowel Movements 3 Weight 97.522 kg GENERAL DESCRIPTION: Elderly male lying in bed, no distress. No tachypnea or accessory muscle of respiration use. HEENT: Shows Pallor , no scleral icterus. Oral mucous membrane is dry. No phar yngeal erythema or thrush NECK: Trachea central, no thyromegaly. LUNGS: Unlabored breathing. Clear to auscultation anteriorly. No wheeze or crackle. HEART: S1, S2, regular rate and rhythm. No loud murmur ABDOMEN: Soft, right lower quadrant tenderness , no guarding or rigidity, no organomegaly EXTREMITIES: No edema of feet. SKIN: No rash, no masses palpable. NEUROLOGICAL: The patient is awake, alert, oriented x3, mood and affect normal. Results CBC & Chem 7: 05/01/21 04:32 05/03/21 05:05 Labs: Abnormal Lab Results - Last 24 Hours (Table) 05/02/21 05/03/21 05/03/21 Range/Units 03:37 05:05 06:51 Chloride 113 H (98-107) mmol/L Glucose 147 H (74-99) mg/dL POC Glucose (mg/dL) 134 H (75-99) mg/dL Total Protein 5.2 L (6.3-8.2) g/dL Albumin 2.7 L 2.6 L (3.5-5.0) g/dL Assessment and Plan (1) Acute appendicitis with appendiceal abscess Current Visit: Yes Status: Acute Code(s): K35.33 - ACUTE APPENDICITIS WITH PERF AND LOC PERITONITIS, WITH ABSCS SNOMED Code(s): 919156893 Plan: 1patient presented to hospital more than a week ago with a 1 week history of right lower quadrant abdominal pain and the patient has been worked up for possible ileitis by GI and surgical services and has been treated with IV Levaqu in and Flagyl now with repeat CT did shows evidence of perforated appendicitis with a periappendicular abscess which cannot be drained CT-guided per interventional radiology, we will need to cover for the enteric gram-negative both aerobes and anaerobes with the abscess forming while the patient was Levaquin and Flagyl will require for resistant gram-negative bacteria. 2we will obtain blood cultures and CRP 3discontinue Levaquin and Flagyl 4start the patient on Zosyn 3.375 g every 8 hour We will follow on clinical condition and cultures to further adjust medication if needed Thank you for this consultation will follow this patient along with you
[2021-05-04] MEDS: SODIUM CHLORIDE 0.9% 1,000 ML IV SCH ×2 (00:03→07:34)
[2021-05-04] MEDS: HYDROmorphone 1 MG/ML 1 ML SYRINGE IVP PRN ×4 (00:33→14:15)
[2021-05-04 00:55] LABS: Glucose,Whole Blood 140 mg/dL (75-99)
[2021-05-04] MEDS: PIPERACILLIN-TAZOBACTAM 3.375 GM in SODIUM CHLORIDE 0.9% 100 ML IVPB SCH ×3 (03:35→18:39)
[2021-05-04] MEDS: SODIUM ACETATE IV SCH ×35 (03:52→20:28)
[2021-05-04] MEDS: POTASSIUM PHOSPHATE IV SCH ×14 (03:52→13:48)
[2021-05-04] MEDS: [UNRECOGNIZED DRUG - OTHER] IV SCH ×14 (03:52→13:48)
[2021-05-04] MEDS: MAGNESIUM SULFATE IV SCH ×35 (03:52→20:28)
[2021-05-04 05:31] LABS: ALT 35 U/L (4-49); AST 26 U/L (17-59); African American GFR (CKD) 85 (>60 ml/min/1.73 sqM); Albumin 2.8 g/dL (3.5-5.0); Alkaline Phosphatase 79 U/L (38-126); Anion Gap 5 mmol/L; Blood Urea Nitrogen 11 mg/dL (9-20); Calcium 8.7 mg/dL (8.4-10.2); Carbon Dioxide 26 mmol/L (22-30); Chloride 113 mmol/L (98-107); Globulin 2.7 g/dL; Glucose 143 mg/dL (74-99); Magnesium 2.4 mg/dL (1.6-2.3); Non-African American GFR(CKD) 73 (>60 ml/min/1.73 sqM); Phosphorus 4.7 mg/dL (2.5-4.5); Sodium 144 mmol/L (137-145); Total Bilirubin 0.6 mg/dL (0.2-1.3); Total Protein 5.5 g/dL (6.3-8.2)
[2021-05-04 06:16] LABS: Glucose,Whole Blood 139 mg/dL (75-99)
[2021-05-04] MEDS: METOPROLOL TARTRATE 25 MG TAB PO SCH ×2 (08:42→20:00)
[2021-05-04] MEDS: lisinopriL 10 MG TAB PO SCH (08:42)
[2021-05-04] MEDS: PANTOPRAZOLE 40 MG/10 ML VIAL IVP SCH (08:42)
[2021-05-04 09:46] LABS: Basophils # (A) 0.02 X 10*3/uL (0.00-0.10); Basophils % (A) 0.2 %; Eosinophils # (A) 0.18 X 10*3/uL (0.04-0.35); Eosinophils % (A) 2.1 %; HCT 40.1 % (39.6-50.0); HGB 12.4 g/dL (13.0-17.0); Immature Grans, Automated 0.5 %; Lymphocytes # (A) 1.14 X 10*3/uL (0.90-5.00); Lymphocytes % (A) 13.4 %; MCH 30.1 pg (27.0-32.0); MCHC 30.9 g/dL (32.0-37.0); MCV 97.3 fL (80.0-97.0); Mean Platelet Volume 9.2 fL (9.5-12.2); Monocytes # (A) 0.62 X 10*3/uL (0.20-1.00); Monocytes % (A) 7.3 %; NRBC Per 100 WBC 0 /100 WBCS (0.0-0.0); Neutrophils # (A) 6.53 X 10*3/uL (1.80-7.70); Neutrophils % (A) 76.5 %; Platelet Count 432 X 10*3/uL (140-440); RBC 4.12 X 10*6/uL (4.40-5.60); WBC 8.53 X 10*3/uL (4.50-10.00)
[2021-05-04 11:33] LABS: Glucose,Whole Blood 148 mg/dL (75-99)
--- NOTE | 2021-05-04 12:24 | P.PN ---
<Alice Sanches - Last Filed: 05/04/21 12:20> Subjective Progress Note Date: 05/04/21 CHIEF COMPLAINT: Abdominal pain HISTORY OF PRESENT ILLNESS: The patient is a 70 year old male admitted due to bowel obstruction including right lower quadrant abdominal pain and ileitis with ascending colitis. Now with repeat computed tomography scan showing evidence of appendicitis with phlegmon and small periappendiceal abscess. NG tube was discontinued yesterday. Patient did have a bowel movement lastly. He is having flatus. Denies a nausea or vomiting. Tolerating ice chips and popsicles. He has abdominal discomfort in the right lower quadrant. Afebrile WBC 11.93 down to 8.5 PHYSICAL EXAM: VITAL SIGNS: Reviewed GENERAL: Well-developed in no acute distress. HEENT: No sclera icterus. Extraocular movements grossly intact. Moist buccal mucosa. Head is atraumatic, normocephalic. Hears conversational speech. No nasal drainage. NECK: Supple without lymphadenopathy. CHEST: Non-labored respirations and equal bilateral excursions. CARDIOVASCULAR: Palpable 2+ radial pulses. ABDOMEN: Distended but softer than admission. Mild tenderness right lower quadrant and umbilicus area MUSCULOSKELETAL: No clubbing or cyanosis. NEUROLOGIC: No focal or lateralizing signs. Cranial nerves II through XII grossly intact. PSYCH: Appropriate affect. Alert and oriented to person, place and time. SKIN: Well perfused. Good skin turgor. ASSESSMENT: 1. Appendicitis with phlegmon and small periappendiceal abscess 2. Abnormal computed tomography scan for inflammation ileitis, colitis 3. Abdominal pain 4. Inflammatory bowel disease, cannot be excluded 5. Bowel obstruction Noted On previous computed tomography scan now showed improvement PLAN: -Continue ice chips and popsicles -No surgical intervention planned. Recommend to continue antibiotics. -Antibiotics per ID service -Continue to monitor closely -Continue IV fluids -Continue pain medication as needed -Encourage patient to ambulate -Add IV Tylenol for pain -Continue TPN for nutrition support Physician Cardiographer note has been reviewed by physician. Signing provider agrees with the documented findings, assessment, and plan of care. Objective - Vital Signs Vital signs: Vital Signs Temp 97.8 F 05/04/21 08:00 Pulse 86 05/04/21 08:00 Resp 16 05/04/21 08:00 BP 162/82 05/04/21 08:00 Pulse Ox 93 L 05/04/21 08:00 Intake & Output 05/03/21 05/04/21 05/04/21 18:59 06:59 18:59 Intake Total 1100 1033.6667 Output Total 600 300 Balance -997 339 6710.6667 Weight 97.522 kg Intake: Intake, IV Titration 1100 1033.6667 Amount Piperacillin-Tazobactam 3 100 .375 gm In Sodium Chloride 0.9% 100 ml @ 25 mls/hr IVPB Q8H [facility] Rx#: [id number] Sodium Acetate 30 meq 1000 1033.6667 Potassium Phosphate 20 mmol Magnesium Sulfate gm 1 gm Calcium Gluconate 1 gm In Amino Acid 5%-D15w 1,000 ml @ 100 mls/hr IV .BY DURATION [facility] Rx#: [id number] Output: Urine 450 300 Post Void Residual 150 Other: Voiding Method Toilet Toilet Urinal Urinal # Voids 2 - Labs CBC & Chem 7: 05/04/21 04:53 05/04/21 04:53 Labs: Abnormal Lab Results - Last 24 Hours (Table) 05/03/21 05/04/21 05/04/21 Range/Units 16:34 00:53 04:53 RBC (4.40-5.60) X 10*6/uL Hgb (13.0-17.0) g/dL MCV (80.0-97.0) fL MCHC (32.0-37.0) g/dL MPV (9.5-12.2) fL Chloride 113 H (98-107) mmol/L Glucose 143 H (74-99) mg/dL POC Glucose (mg/dL) 141 H 140 H (75-99) mg/dL Phosphorus 4.7 H (2.5-4.5) mg/dL Magnesium 2.4 H (1.6-2.3) mg/dL Total Protein 5.5 L (6.3-8.2) g/dL Albumin 2.8 L (3.5-5.0) g/dL 05/04/21 05/04/21 05/04/21 Range/Units 04:53 06:14 11:31 RBC 4.12 L (4.40-5.60) X 10*6/uL Hgb 12.4 L (13.0-17.0) g/dL MCV 97.3 H (80.0-97.0) fL MCHC 30.9 L (32.0-37.0) g/dL MPV 9.2 L (9.5-12.2) fL Chloride (98-107) mmol/L Glucose (74-99) mg/dL POC Glucose (mg/dL) 139 H 148 H (75-99) mg/dL Phosphorus (2.5-4.5) mg/dL Magnesium (1.6-2.3) mg/dL Total Protein (6.3-8.2) g/dL Albumin (3.5-5.0) g/dL <Rose Loving N - Last Filed: 05/04/21 19:25> Objective - Vital Signs Vital signs: Vital Signs Temp 97.7 F 05/04/21 13:46 Pulse 71 05/04/21 13:46 Resp 16 05/04/21 13:46 BP 160/88 05/04/21 13:46 Pulse Ox 95 05/04/21 13:46 Intake & Output 05/04/21 05/04/21 05/05/21 06:59 18:59 06:59 Intake Total 1100 2078.3334 Output Total 300 400 Balance 800 1678.3334 Weight 97.522 kg Intake: Intake, IV Titration 1100 2078.3334 Amount Piperacillin-Tazobactam 3 100 .375 gm In Sodium Chloride 0.9% 100 ml @ 25 mls/hr IVPB Q8H [facility] Rx#: [id number] Sodium Acetate 30 meq 1000 1033.6667 Potassium Phosphate 20 mmol Magnesium Sulfate gm 1 gm Calcium Gluconate 1 gm In Amino Acid 5%-D15w 1,000 ml @ 100 mls/hr IV .BY DURATION [facility] Rx#: [id number] Sodium Acetate 30 meq 1044.6667 Potassium Phosphate 20 mmol Magnesium Sulfate gm 1 gm Calcium Gluconate 1 gm Mvi, Adult No.4 with Vit K 10 ml Trace (Conc- 1Ml/Dose) 1 ml In Amino Acid 5%-D15w 1,000 ml @ 100 mls/hr IV .BY DURATION [facility] Rx#: [id number] Output: Urine 300 400 Other: Voiding Method Toilet Urinal - Labs CBC & Chem 7: 05/04/21 04:53 05/04/21 04:53 Labs: Abnormal Lab Results - Last 24 Hours (Table) 05/04/21 05/04/21 05/04/21 Range/Units 00:53 04:53 04:53 RBC 4.12 L (4.40-5.60) X 10*6/uL Hgb 12.4 L (13.0-17.0) g/dL MCV 97.3 H (80.0-97.0) fL MCHC 30.9 L (32.0-37.0) g/dL MPV 9.2 L (9.5-12.2) fL Chloride 113 H (98-107) mmol/L Glucose 143 H (74-99) mg/dL POC Glucose (mg/dL) 140 H (75-99) mg/dL Phosphorus 4.7 H (2.5-4.5) mg/dL Magnesium 2.4 H (1.6-2.3) mg/dL Total Protein 5.5 L (6.3-8.2) g/dL Albumin 2.8 L (3.5-5.0) g/dL 05/04/21 05/04/21 05/04/21 Range/Units 06:14 11:31 16:27 RBC (4.40-5.60) X 10*6/uL Hgb (13.0-17.0) g/dL MCV (80.0-97.0) fL MCHC (32.0-37.0) g/dL MPV (9.5-12.2) fL Chloride (98-107) mmol/L Glucose (74-99) mg/dL POC Glucose (mg/dL) 139 H 148 H 125 H (75-99) mg/dL Phosphorus (2.5-4.5) mg/dL Magnesium (1.6-2.3) mg/dL Total Protein (6.3-8.2) g/dL Albumin (3.5-5.0) g/dL Microbiology - Last 24 Hours (Table) 05/03/21 11:21 Blood Culture - Preliminary Blood No Growth after 24 hours Assessment and Plan (1) Ileitis Current Visit: Yes Status: Acute Code(s): K52.9 - NONINFECTIVE GASTROENTERITIS AND COLITIS, UNSPECIFIED SNOMED Code(s): 50541475 (2) Colitis Current Visit: Yes Status: Acute Code(s): K52.9 - NONINFECTIVE GASTROENTERI TIS AND COLITIS, UNSPECIFIED SNOMED Code(s): 39276892 (3) Small bowel obstruction Current Visit: Yes Status: Acute Code(s): K56.609 - UNSP INTESTNL OBST, UNSP TO PARTIAL VERSUS COMPLETE OBST SNOMED Code(s): 711750139
[2021-05-04] MEDS: [UNRECOGNIZED DRUG - OTHER] IV SCH ×21 (14:00→20:28)
[2021-05-04] MEDS: POTASSIUM ACETATE IV SCH ×21 (14:00→20:28)
[2021-05-04] MEDS: ACETAMINOPHEN IV (For NPO) 1,000 MG in EMPTY BAG 1 BAG IVPB PRN (14:14)
--- NOTE | 2021-05-04 14:23 | P.PN ---
Progress Note - Text Progress Note Date: 05/04/21 Hospital course: Patient admitted with abdominal pain. Found to mechanical small bowel obstruct ion. NG tube was placed Pepe the patient pointed out in the middle of the night. April 27: Patient denies chest. Abdomen distended. Abdominal pain present. Last bowel movement was 4 days ago. No nausea vomiting. X-ray showing increasing dilatations of bowel. Patient was later seen by general surgery mancini and reinsertion of NG tube. No BM. No flatus. On IV Levaquin and Flagyl. April 28: Patient had a small BM. Some flatus. Has been out of bed. No nausea vomiting. Improvement in abdominal pain. Diet advanced to clear liquids by surgery. Abdominal x-ray still showing significant bowel dilatation. April 29: Patient still has some abdominal pain. He describes about 8 inch long BM. Dark in color. No nausea vomiting. Surgery earlier downgraded patient's diet to ice chips. Has been up to the bathroom. Abdomen still distended April 30: NG tube was placed last night. Abdominal distention. Some flatus. Abdominal discomfort. No nausea vomiting. Abdominal x-ray from last night showing significant small bowel obstruction. May 01: NG tube to suction. Abdominal pain present. at the bedside. No nausea vomiting. Has been passing some flatus. Start the patient on TPN and lipids after getting a PICC line May 02: PICC line today. NG tube to suction. Some improvement in abdominal pain. Positive some flatus. TPN and lipids being started. Computed tomography scan shows inflamed appendix, small periappendiceal abscess 3.9 x 3.2 cm findings of ileus. Surgery GI following. May 03: NG tube to suction remains in place. Abdomen distended. Lower abdominal pain. Per interventional radiology abscess small for them to going. Getting TPN and lipids. Discussed with the patient about continuation of antibiotics for the present time. Further decision as per surgery. May 04: NG tube discontinued. Has some abdominal pain. TPN and lipids. His nothing by mouth except for ice chips. Discussed with patient. Activity as tolerated. Continue antibiotics. No plans for surgical intervention by surgery Active Medications Acetaminophen (Acetaminophen Tab 325 Mg Tab) 325 mg PO Q6HR PRN PRN Reason: Fever and/ or Pain Last Admin: 05/02/21 23:19 Dose: 325 mg Documented by: Albuterol Sulfate (Albuterol Hfa Inhaler) 2 puff INHALATION RT-Q4H PRN PRN Reason: Shortness Of Breath Hydromorphone HCl (Hydromorphone 1 Mg/Ml 1 Ml Syringe) 1 mg IVP Q3HR PRN PRN Reason: Moderate to Severe Pain Last Admin: 05/04/21 14:15 Dose: 1 mg Documented by: Fat Emulsion Intravenous 500 (ml/ IV Solution) 500 mls @ 42 mls/hr IV Mo [facility] Last Admin: 05/02/21 17:14 Dose: 42 mls/hr Documented by: Piperacillin Sod/Tazobactam (Sod 3.375 gm/ Sodium Chloride) 100 mls @ 25 mls/hr IVPB Q8H [facility]; Protocol Last Admin: 05/04/21 08:56 Dose: 25 mls/hr Documented by: Acetaminophen 1,000 mg/ IV (Solution) 100 mls @ 400 mls/hr IVPB Q6HR PRN PRN Reason: Analgesia Stop: 05/11/21 23:00 Last Admin: 05/04/21 14:14 Dose: 400 mls/hr Documented by: Sodium Acetate 15 meq/Potassium Acetate 15 meq/Magnesium Sulfate 0.5 gm/Calcium Gluconate 1 gm/Parenteral Vitamin Supplement 10 ml/ Zinc/Copper/Manganese/Selenium 1 ml/ Amino Acids/Dextrose 1,037 mls @ 100 mls/hr IV .BY DURATION [facility] Sodium Acetate 15 meq/Potassium Acetate 15 meq/Magnesium Sulfate 0.5 gm/Calcium Gluconate 1 gm/ Amino Acids/Dextrose 1,026 mls @ 100 mls/hr IV .BY DURATION [facility] Lisinopril (Lisinopril 10 Mg Tab) 10 mg PO DAILY [facility] Last Admin: 05/04/21 08:42 Dose: 10 mg Documented by: Metoprolol Tartrate (Metoprolol Tartrate 25 Mg Tab) 25 mg PO BID [facility] Last Admin: 05/04/21 08:42 Dose: 25 mg Documented by: Naloxone HCl (Naloxone 0.4 Mg/Ml 1 Ml Vial) 0.2 mg IV Q2M PRN PRN Reason: Opioid Reversal Ondansetron HCl (Ondansetron 4 Mg/2 Ml Vial) 4 mg IVP Q8HR PRN PRN Reason: Nausea And Vomiting Last Admin: 04/30/21 18:00 Dose: 4 mg Documented by: Pantoprazole Sodium (Pantoprazole 40 Mg/10 Ml Vial) 40 mg IVP DAILY [facility] Last Admin: 05/04/21 08:42 Dose: 40 mg Documented by: Pramipexole Dihydrochloride (Pramipexole 1 Mg Tab) 1.5 mg PO HS@1900 [facility] Last Admin: 05/03/21 21:24 Dose: 1.5 mg Documented by: Sodium Chloride (Sodium Chloride 0.9% Flush 10 Ml Syringe) 10 ml IV Q4HR PRN PRN Reason: PICC Line Sodium Chloride (Sodium Chloride 0.9% Flush 10 Ml Syringe) 10 ml IV WEEKLY [facility] Sodium Chloride (Sodium Chloride 0.9% Flush 10 Ml Syringe) 20 ml IV Q4HR PRN PRN Reason: PICC Line Tamsulosin HCl (Tamsulosin 0.4 Mg Cap.Er.24h) 0.4 mg PO [facility] Last Admin: 05/03/21 21:23 Dose: 0.4 mg Documented by: On examination: VITAL SIGNS: 97.8, 86, 16, 162/82, 93% room air GENERAL APPEARANCE: Reclining in bed, awake, tired HEENT: Normal external appearance of nose and ear. NG tube to intermittent suction EYES: Pupils equal. Conjunctiva normal. NECK: JVD not raised. Mass not palpable. RESPIRATORY: Respiratory effort normal. Lungs clear to auscultation. CARDIOVASCULAR: First and second sounds normal. No edema. ABDOMEN: Distended, some tenderness hyperactive bowel sounds Liver and spleen not palpable. No tenderness. No mass palpable. PSYCHIATRY: Alert and oriented x3. Mood and affect normal. INVESTIGATIONS, reviewed in the clinical context: May 04: Sodium 144 potassium 4 creatinine 1.02 white count 8.5 hemoglobin 12.4 May 03: Sodium 142 potassium 3.6 creatinine 1.0 albumin 2.6 May 02: Potassium 4.3 creatinine 1.13 Computed tomography scan of the abdomen and pelvis [April 24]: Right lower quadrant abscess/inflamed appendix associated with appendix May 01: White count 11.9 hemoglobin 12.8 potassium 4.4 creatinine 1.1 April 29: White count 9.3 hemoglobin 11.7 platelets 477. Pro-calcitonin 0.95 April 28: White count 9.9 hemoglobin 12 platelets 523. Abdominal x-ray shows diffusely dilated small bowel loops with air-fluid levels. Slight improvement. White count 13.5 hemoglobin 12.2 platelets 502 potassium 4.4 creatinine 1.2 CRP 29.8 procalcitonin 2.5 for Abdominal x-ray film personally reviewed by me dilated loops of bowel Computed tomography scan of the abdomen pelvis: Moderate inflammatory changes the right lower quadrant stopped and currently involving the distal ileum colon. Assessment and plan: -Acute appendicitis with phlegmon abscess: Slow to respond IV Zosyn, Been followed by surgery -Acute small bowel obstruction: NG tube discontinued per surgery. -Paroxysmal Atrial fibrillation, currently in sinus rhythm On telemetry -Hyperlipidemia Crestor 5 mg by mouth Sunday -Essential hypertension Lisinopril 10 mg a day -Osteoarthritis, primary -Restless leg syndrome Mirapex 1.5 mg by mouth daily at bedtime -BPH Flomax 0.4 mg daily at bedtime -TPN and lipids started Jev IV Zosyn NG tube discontinued. TPN and lipids. Discussed with patient. Currently nothing by mouth. Increase activity.
[2021-05-04 16:29] LABS: Glucose,Whole Blood 125 mg/dL (75-99)
[2021-05-04] MEDS: PRAMIPEXOLE 1 MG TAB PO SCH (18:40)
--- NOTE | 2021-05-04 19:38 | P.PN ---
Progress Note - Text Progress Note Date: 05/04/21 Patient seen and evaluated. Care plan described. CT of the abdomen and pelvis reviewed. Recommend interval appendectomy. Continue IV antibiotics per management of infectious disease. Will start diet. Likely discharge pending tolerating diet, pain control and IV antibiotic management. Care plan reviewed with patient and over telephone. Plan also discussed with admitting attending.
[2021-05-04] MEDS: KETOROLAC 30 MG/ML 1 ML VIAL IVP SCH ×2 (19:59→23:24)
[2021-05-04] MEDS: TAMSULOSIN 0.4 MG CAP.ER.24H PO SCH (20:00)
[2021-05-05] LABS: Glucose,Whole Blood 130 mg/dL (75-99)
[2021-05-05] MEDS: ACETAMINOPHEN IV (For NPO) 1,000 MG in EMPTY BAG 1 BAG IVPB PRN ×3 (00:02→16:14)
[2021-05-05] MEDS: POTASSIUM ACETATE IV SCH ×15 (03:02→12:15)
[2021-05-05] MEDS: MAGNESIUM SULFATE IV SCH ×7 (03:02)
[2021-05-05] MEDS: SODIUM ACETATE IV SCH ×15 (03:02→12:15)
[2021-05-05] MEDS: [UNRECOGNIZED DRUG - OTHER] IV SCH ×7 (03:02)
[2021-05-05] MEDS: PIPERACILLIN-TAZOBACTAM 3.375 GM in SODIUM CHLORIDE 0.9% 100 ML IVPB SCH ×3 (03:03→22:08)
[2021-05-05 04:28] LABS: ALT 32 U/L (4-49); AST 30 U/L (17-59); African American GFR (CKD) 90 (>60 ml/min/1.73 sqM); Albumin 2.9 g/dL (3.5-5.0); Alkaline Phosphatase 92 U/L (38-126); Anion Gap 7 mmol/L; Blood Urea Nitrogen 15 mg/dL (9-20); Calcium 8.5 mg/dL (8.4-10.2); Carbon Dioxide 25 mmol/L (22-30); Chloride 108 mmol/L (98-107); Globulin 2.8 g/dL; Glucose 127 mg/dL (74-99); Magnesium 2.4 mg/dL (1.6-2.3); Non-African American GFR(CKD) 77 (>60 ml/min/1.73 sqM); Phosphorus 4.3 mg/dL (2.5-4.5); Potassium 3.6 mmol/L (3.5-5.1); Sodium 140 mmol/L (137-145); Total Bilirubin 0.7 mg/dL (0.2-1.3); Total Protein 5.7 g/dL (6.3-8.2)
[2021-05-05] MEDS: KETOROLAC 30 MG/ML 1 ML VIAL IVP SCH ×4 (05:39→23:14)
[2021-05-05 06:20] LABS: Glucose,Whole Blood 126 mg/dL (75-99)
[2021-05-05] MEDS: PANTOPRAZOLE 40 MG/10 ML VIAL IVP SCH (07:20)
[2021-05-05] MEDS: METOPROLOL TARTRATE 25 MG TAB PO SCH ×2 (07:20→22:07)
[2021-05-05] MEDS: lisinopriL 10 MG TAB PO SCH (07:20)
[2021-05-05] MEDS: ONDANSETRON 4 MG/2 ML VIAL IVP PRN (08:37)
[2021-05-05] MEDS ORDERED: [UNRECOGNIZED DRUG - OTHER] IV SCH ×7 (11:00)
[2021-05-05] MEDS ORDERED: SODIUM ACETATE IV SCH ×7 (11:00)
[2021-05-05] MEDS ORDERED: POTASSIUM ACETATE IV SCH ×7 (11:00)
[2021-05-05] MEDS ORDERED: MAGNESIUM SULFATE IV SCH ×7 (11:00)
[2021-05-05 11:43] LABS: Glucose,Whole Blood 148 mg/dL (75-99)
--- NOTE | 2021-05-05 11:55 | P.PN ---
Subjective Progress Note Date: 05/05/21 CHIEF COMPLAINT: Abdominal pain HISTORY OF PRESENT ILLNESS: The patient is a 70 year old male admitted due to bowel obstruction including right lower quadrant abdominal pain and ileitis with ascending colitis. Now with repeat computed tomography scan showing evidence of appendicitis with phlegmon and small periappendiceal abscess. Patient started on full liquid diet this morning. He did have one episode of vomiting after eating majority of his tray. He is having bowel movements. He is still dist ended. Reports minimal pain in that right lower quadrant. Afebrile sodium 140 potassium 3.6 creatinine 0.98 magnesium 2.4 PHYSICAL EXAM: VITAL SIGNS: Reviewed GENERAL: Well-developed in no acute distress. HEENT: No sclera icterus. Extraocular movements grossly intact. Moist buccal mucosa. Head is atraumatic, normocephalic. Hears conversational speech. No nasal drainage. NECK: Supple without lymphadenopathy. CHEST: Non-labored respirations and equal bilateral excursions. CARDIOVASCULAR: Palpable 2+ radial pulses. ABDOMEN: Distended but softer than admission. Mild tenderness right lower quadrant MUSCULOSKELETAL: No clubbing or cyanosis. NEUROLOGIC: No focal or lateralizing signs. Cranial nerves II through XII grossly intact. PSYCH: Appropriate affect. Alert and oriented to person, place and time. SKIN: Well perfused. Good skin turgor. ASSESSMENT: 1. Appendicitis with phlegmon and small periappendiceal abscess 2. Abnormal computed tomography scan for inflammation ileitis, colitis 3. Abdominal pain 4. Inflammatory bowel disease, cannot be excluded 5. Bowel obstruction Noted On previous computed tomography scan now showed improvement PLAN: -Continue full liquid diet -No surgical intervention planned. -Continue Antibiotics per ID service -Continue to monitor closely -Continue IV fluids -Continue pain medication as needed -Encourage patient to ambulate -Continue TPN for nutrition support Physician Recreation Leader note has been reviewed by physician. Signing provider agrees with the documented findings, assessment, and plan of care. Objective - Vital Signs Vital signs: Vital Signs Temp 97.6 F 05/05/21 07:53 Pulse 64 05/05/21 07:53 Resp 18 05/05/21 07:53 BP 148/81 05/05/21 07:53 Pulse Ox 95 05/05/21 07:53 Intake & Output 05/04/21 05/05/21 05/05/21 18:59 06:59 18:59 Intake Total 2078.333 180 Output Total 400 Balance 1678.3334 180 Weight 97.522 kg Intake: Intake, IV Titration 2077.333 Amount Sodium Acetate 30 meq 1033.6667 Potassium Phosphate 20 mmol Magnesium Sulfate gm 1 gm Calcium Gluconate 1 gm In Amino Acid 5%-D15w 1,000 ml @ 100 mls/hr IV .BY DURATION [facility] Rx#: [id number] Sodium Acetate 30 meq 1044.6667 Potassium Phosphate 20 mmol Magnesium Sulfate gm 1 gm Calcium Gluconate 1 gm Mvi, Adult No.4 with Vit K 10 ml Trace (Conc- 1Ml/Dose) 1 ml In Amino Acid 5%-D15w 1,000 ml @ 100 mls/hr IV .BY DURATION [facility] Rx#: [id number] Oral 180 Output: Urine 400 Other: Voiding Method Toilet Toilet Toilet Urinal Urinal Urinal # Voids 3 # Bowel Movements 1 - Labs CBC & Chem 7: 05/04/21 04:53 05/05/21 03:54 Labs: Abnormal Lab Results - Last 24 Hours (Table) 05/04/21 05/04/21 05/05/21 Range/Units 16:27 23:58 03:54 Chloride 108 H (98-107) mmol/L Glucose 127 H (74-99) mg/dL POC Glucose (mg/dL) 125 H 130 H (75-99) mg/dL Magnesium 2.4 H (1.6-2.3) mg/dL Total Protein 5.7 L (6.3-8.2) g/dL Albumin 2.9 L (3.5-5.0) g/dL 05/05/21 05/05/21 Range/Units 06:18 11:41 Chloride (98-107) mmol/L Glucose (74-99) mg/dL POC Glucose (mg/dL) 126 H 148 H (75-99) mg/dL Magnesium (1.6-2.3) mg/dL Total Protein (6.3-8.2) g/dL Albumin (3.5-5.0) g/dL Microbiology - Last 24 Hours (Table) 05/03/21 11:21 Blood Culture - Preliminary Blood No Growth after 24 hours
[2021-05-05] MEDS: CALCIUM GLUCONATE IV SCH ×8 (12:15)
[2021-05-05] MEDS: MVI IV SCH ×8 (12:15)
[2021-05-05] MEDS: [UNRECOGNIZED DRUG - OTHER] IV SCH ×8 (12:15)
--- NOTE | 2021-05-05 15:46 | P.PN ---
Progress Note - Text Progress Note Date: 05/05/21 Hospital course: Patient admitted with abdominal pain. Found to mechanical small bowel obstruct ion. NG tube was placed Pepe the patient pointed out in the middle of the night. April 27: Patient denies chest. Abdomen distended. Abdominal pain present. Last bowel movement was 4 days ago. No nausea vomiting. X-ray showing increasing dilatations of bowel. Patient was later seen by general surgery mancini and reinsertion of NG tube. No BM. No flatus. On IV Levaquin and Flagyl. April 28: Patient had a small BM. Some flatus. Has been out of bed. No nausea vomiting. Improvement in abdominal pain. Diet advanced to clear liquids by surgery. Abdominal x-ray still showing significant bowel dilatation. April 29: Patient still has some abdominal pain. He describes about 8 inch long BM. Dark in color. No nausea vomiting. Surgery earlier downgraded patient's diet to ice chips. Has been up to the bathroom. Abdomen still distended April 30: NG tube was placed last night. Abdominal distention. Some flatus. Abdominal discomfort. No nausea vomiting. Abdominal x-ray from last night showing significant small bowel obstruction. May 01: NG tube to suction. Abdominal pain present. at the bedside. No nausea vomiting. Has been passing some flatus. Start the patient on TPN and lipids after getting a PICC line May 02: PICC line today. NG tube to suction. Some improvement in abdominal pain. Positive some flatus. TPN and lipids being started. Computed tomography scan shows inflamed appendix, small periappendiceal abscess 3.9 x 3.2 cm findings of ileus. Surgery GI following. May 03: NG tube to suction remains in place. Abdomen distended. Lower abdominal pain. Per interventional radiology abscess small for them to going. Getting TPN and lipids. Discussed with the patient about continuation of antibiotics for the present time. Further decision as per surgery. May 04: NG tube discontinued. Has some abdominal pain. TPN and lipids. His nothing by mouth except for ice chips. Discussed with patient. Activity as tolerated. Continue antibiotics. No plans for surgical intervention by surgery May 05: Patient on full liquid diet. Had some loose stools. Abdominal pain better. On TPN and lipids. Family at the bedside. Up to the bathroom. Patient did throw up his breakfast. Discussed with Dr. Pinedo yesterday evening plan to continue with antibiotics for now no surgical intervention currently. Active Medications Albuterol Sulfate (Albuterol Hfa Inhaler) 2 puff INHALATION RT-Q4H PRN PRN Reason: Shortness Of Breath Hydromorphone HCl (Hydromorphone 1 Mg/Ml 1 Ml Syringe) 1 mg IVP Q3HR PRN PRN Reason: Moderate to Severe Pain Last Admin: 05/04/21 14:15 Dose: 1 mg Documented by: Fat Emulsion Intravenous 500 (ml/ IV Solution) 500 mls @ 42 mls/hr IV Mo [facility] Last Admin: 05/02/21 17:14 Dose: 42 mls/hr Documented by: Piperacillin Sod/Tazobactam (Sod 3.375 gm/ Sodium Chloride) 100 mls @ 25 mls/hr IVPB Q8H [facility]; Protocol Last Admin: 05/05/21 11:02 Dose: 25 mls/hr Documented by: Acetaminophen 1,000 mg/ IV (Solution) 100 mls @ 400 mls/hr IVPB Q6HR PRN PRN Reason: Analgesia Stop: 05/11/21 23:00 Last Admin: 05/05/21 07:20 Dose: 400 mls/hr Documented by: Sodium Acetate 20 meq/Potassium Acetate 15 meq/Calcium Gluconate 1 gm/Parenteral Vitamin Supplement 10 ml/ Zinc/Copper/Manganese/Selenium 1 ml/ Potassium Phosphate 6 mmol/ Amino Acids/Dextrose 1,040.5 mls @ 85 mls/hr IV .BY DURATION [facility] Last Admin: 05/05/21 12:15 Dose: 85 mls/hr Documented by: Sodium Acetate 20 meq/Potassium Acetate 15 meq/Magnesium Sulfate 0.5 gm/Calcium Gluconate 1 gm/Potassium Phosphate 6 mmol/Amino Acids/Dextrose 1,030.5 mls @ 85 mls/hr IV .BY DURATION [facility] Ketorolac Tromethamine (Ketorolac 30 Mg/Ml 1 Ml Vial) 15 mg IVP Q6HR [facility] Stop: 05/07/21 19:40 Last Admin: 05/05/21 11:02 Dose: 15 mg Documented by: Lisinopril (Lisinopril 10 Mg Tab) 10 mg PO DAILY [facility] Last Admin: 05/05/21 07:20 Dose: 10 mg Documented by: Metoprolol Tartrate (Metoprolol Tartrate 25 Mg Tab) 25 mg PO BID [facility] Last Admin: 05/05/21 07:20 Dose: 25 mg Documented by: Naloxone HCl (Naloxone 0.4 Mg/Ml 1 Ml Vial) 0.2 mg IV Q2M PRN PRN Reason: Opioid Reversal Ondansetron HCl (Ondansetron 4 Mg/2 Ml Vial) 4 mg IVP Q8HR PRN PRN Reason: Nausea And Vomiting Last Admin: 05/05/21 08:37 Dose: 4 mg Documented by: Pantoprazole Sodium (Pantoprazole 40 Mg/10 Ml Vial) 40 mg IVP DAILY [facility] Last Admin: 05/05/21 07:20 Dose: 40 mg Documented by: Pramipexole Dihydrochloride (Pramipexole 1 Mg Tab) 1.5 mg PO HS@1900 [facility] Last Admin: 05/04/21 18:40 Dose: 1.5 mg Documented by: Sodium Chloride (Sodium Chloride 0.9% Flush 10 Ml Syringe) 10 ml IV Q4HR PRN PRN Reason: PICC Line Sodium Chloride (Sodium Chloride 0.9% Flush 10 Ml Syringe) 10 ml IV WEEKLY [facility] Sodium Chloride (Sodium Chloride 0.9% Flush 10 Ml Syringe) 20 ml IV Q4HR PRN PRN Reason: PICC Line Tamsulosin HCl (Tamsulosin 0.4 Mg Cap.Er.24h) 0.4 mg PO [facility] Last Admin: 05/04/21 20:00 Dose: 0.4 mg Documented by: On examination: VITAL SIGNS: 97.6, 64, 18, 148/81, 95% room air GENERAL APPEARANCE: Reclining in bed, awake, tired HEENT: Normal external appearance of nose and ear. NG tube to intermittent suction EYES: Pupils equal. Conjunctiva normal. NECK: JVD not raised. Mass not palpable. RESPIRATORY: Respiratory effort normal. Lungs clear to auscultation. CARDIOVASCULAR: First and second sounds normal. No edema. ABDOMEN: Less distended, no tenderness hyperactive bowel sounds Liver and spleen not palpable. No tenderness. No mass palpable. PSYCHIATRY: Alert and oriented x3. Mood and affect normal. INVESTIGATIONS, reviewed in the clinical context: May 05: Sodium 140 potassium 3.6 creatinine 0.98 May 04: Sodium 144 potassium 4 creatinine 1.02 white count 8.5 hemoglobin 12.4 May 03: Sodium 142 potassium 3.6 creatinine 1.0 albumin 2.6 May 02: Potassium 4.3 creatinine 1.13 Computed tomography scan of the abdomen and pelvis [April 24]: Right lower quadrant abscess/inflamed appendix associated with appendix May 01: White count 11.9 hemoglobin 12.8 potassium 4.4 creatinine 1.1 April 29: White count 9.3 hemoglobin 11.7 platelets 477. Pro-calcitonin 0.95 April 28: White count 9.9 hemoglobin 12 platelets 523. Abdominal x-ray shows diffusely dilated small bowel loops with air-fluid levels. Slight improvement. White count 13.5 hemoglobin 12.2 platelets 502 potassium 4.4 creatinine 1.2 CRP 29.8 procalcitonin 2.5 for Abdominal x-ray film personally reviewed by me dilated loops of bowel Computed tomography scan of the abdomen pelvis: Moderate inflammatory changes the right lower quadrant stopped and currently involving the distal ileum colon. Assessment and plan: -Acute appendicitis with phlegmon abscess: Slow to respond IV Zosyn, or of any surgical intervention per Dr. Pinedo for now. -Acute small bowel obstruction: Clinically better NG tube discontinued -Paroxysmal Atrial fibrillation, currently in sinus rhythm On telemetry -Hyperlipidemia Crestor 5 mg by mouth Sunday -Essential hypertension Lisinopril 10 mg a day -Osteoarthritis, primary -Restless leg syndrome Mirapex 1.5 mg by mouth daily at bedtime -BPH Flomax 0.4 mg daily at bedtime -TPN and lipids started IV Zosyn. Full liquids TPN and lipids. Increase activity. Care was discussed with the patient and family at the bedside.
[2021-05-05] MEDS ORDERED: ACETAMINOPHEN IV (For NPO) 1,000 MG in EMPTY BAG 1 BAG IVPB PRN (17:35)
[2021-05-05 18:05] LABS: Glucose,Whole Blood 139 mg/dL (75-99)
[2021-05-05] MEDS: TAMSULOSIN 0.4 MG CAP.ER.24H PO SCH (22:07)
[2021-05-05] MEDS: PRAMIPEXOLE 1 MG TAB PO SCH (22:07)
--- NOTE | 2021-05-05 23:14 | P.PN ---
Subjective Progress Note Date: 05/04/21 Principal diagnosis: Intra-abdominal abscess Patient is a 70-year-old male admitted to the hospital with right lower quadrant abdominal pain and vomiting in this patient repeat CT that shows evidence of right lower quadrant abscess and possible perforated appendicitis On today's evaluation that is 05/04/2021, the patient denies having any fever or chills, the patient and she has been discontinued and denies any nausea and vomiting no chest pain shortness of breath or cough no abdominal pain has slightly decreased intensity no diarrhea Objective - Vital Signs Vital signs: Vital Signs Temp 97.8 F 05/04/21 08:00 Pulse 86 05/04/21 08:00 Resp 16 05/04/21 08:00 BP 162/82 05/04/21 08:00 Pulse Ox 93 L 05/04/21 08:00 Intake & Output 05/03/21 05/04/21 05/04/21 18:59 06:59 18:59 Intake Total 1100 1033.6667 Output Total 600 300 Balance -376 123 7554.6667 Weight 97.522 kg Intake: Intake, IV Titration 1100 1033.6667 Amount Piperacillin-Tazobactam 3 100 .375 gm In Sodium Chloride 0.9% 100 ml @ 25 mls/hr IVPB Q8H [facility] Rx#: [id number] Sodium Acetate 30 meq 1000 1033.6667 Potassium Phosphate 20 mmol Magnesium Sulfate gm 1 gm Calcium Gluconate 1 gm In Amino Acid 5%-D15w 1,000 ml @ 100 mls/hr IV .BY DURATION [facility] Rx#: [id number] Output: Urine 450 300 Post Void Residual 150 Other: Voiding Method Toilet Urinal # Voids 2 - Exam GENERAL DESCRIPTION: An elderly male lying in bed in no distress RESPIRATORY SYSTEM: Unlabored breathing , decreased breath sounds at bases HEART: S1 S2 regular rate and rhythm , ABDOMEN: Soft , no tenderness EXTREMITIES: No edema feet - Labs CBC & Chem 7: 05/04/21 04:53 05/05/21 03:54 Labs: Abnormal Lab Results - Last 24 Hours (Table) 05/03/21 05/03/21 05/04/21 Range/Units 11:27 16:34 00:53 RBC (4.40-5.60) X 10*6/uL Hgb (13.0-17.0) g/dL MCV (80.0-97.0) fL MCHC (32.0-37.0) g/dL MPV (9.5-12.2) fL Chloride (98-107) mmol/L Glucose (74-99) mg/dL POC Glucose (mg/dL) 108 H 141 H 140 H (75-99) mg/dL Phosphorus (2.5-4.5) mg/dL Magnesium (1.6-2.3) mg/dL Total Protein (6.3-8.2) g/dL Albumin (3.5-5.0) g/dL 05/04/21 05/04/21 05/04/21 Range/Units 04:53 04:53 06:14 RBC 4.12 L (4.40-5.60) X 10*6/uL Hgb 12.4 L (13.0-17.0) g/dL MCV 97.3 H (80.0-97.0) fL MCHC 30.9 L (32.0-37.0) g/dL MPV 9.2 L (9.5-12.2) fL Chloride 113 H (98-107) mmol/L Glucose 143 H (74-99) mg/dL POC Glucose (mg/dL) 139 H (75-99) mg/dL Phosphorus 4.7 H (2.5-4.5) mg/dL Magnesium 2.4 H (1.6-2.3) mg/dL Total Protein 5.5 L (6.3-8.2) g/dL Albumin 2.8 L (3.5-5.0) g/dL Assessment and Plan (1) Acute appendicitis with appendiceal abscess Current Visit: Yes Status: Acute Code(s): K35.33 - ACUTE APPENDICITIS WITH P ERF AND LOC PERITONITIS, WITH ABSCS SNOMED Code(s): 803891854 Plan: 1patient presented to hospital more than a week ago with a 1 week history of right lower quadrant abdominal pain and the patient has been worked up for possible ileitis by GI and surgical services and has been treated with IV Levaquin and Flagyl now with repeat CT did shows evidence of perforated appendicitis with a periappendicular abscess which cannot be drained CT-guided per interventional radiology, we will need to cover for the enteric gram- negative both aerobes and anaerobes with the abscess forming while the patient was Levaquin and Flagyl will require for resistant gram-negative bacteria. 2patient to continue with Zosyn 3.375 g every 8 hour, while waiting for condition is stabilized Time with Patient: Less than 30
--- NOTE | 2021-05-05 23:16 | P.PN ---
Subjective Progress Note Date: 05/05/21 Principal diagnosis: Intra-abdominal abscess Patient is a 70-year-old male admitted to the hospital with right lower quadrant abdominal pain and vomiting in this patient repeat CT that shows evidence of right lower quadrant abscess and possible perforated appendicitis On today's evaluation that is 05/05/2021, the patient remains to be afebrile, the patient is feeling better and denies any nausea or vomiting after discontinuation of his NG, patient denies chest pain shortness of breath or cough no abdominal pain has slightly decreased intensity no diarrhea Objective - Vital Signs Vital signs: Vital Signs Temp 97.6 F 05/05/21 07:53 Pulse 64 05/05/21 07:53 Resp 18 05/05/21 07:53 BP 148/81 05/05/21 07:53 Pulse Ox 95 05/05/21 07:53 Intake & Output 05/04/21 05/05/21 05/05/21 18:59 06:59 18:59 Intake Total 2078.3334 1103.333 Output Total 400 Balance 1678.3334 1103.333 Weight 97.522 kg Intake: Intake, IV Titration 2078.3334 923.333 Amount Sodium Acetate 15 meq 923.333 Potassium Acetate 15 meq Magnesium Sulfate gm 0.5 gm Calcium Gluconate 1 gm In Amino Acid 5%-D15w 1, 000 ml @ 100 mls/hr IV . BY DURATION [facility] Rx#: [id number] Sodium Acetate 30 meq 1033.6667 Potassium Phosphate 20 mmol Magnesium Sulfate gm 1 gm Calcium Gluconate 1 gm In Amino Acid 5%-D15w 1,000 ml @ 100 mls/hr IV .BY DURATION [facility] Rx#: [id number] Sodium Acetate 30 meq 1044.6667 Potassium Phosphate 20 mmol Magnesium Sulfate gm 1 gm Calcium Gluconate 1 gm Mvi, Adult No.4 with Vit K 10 ml Trace (Conc- 1Ml/Dose) 1 ml In Amino Acid 5%-D15w 1,000 ml @ 100 mls/hr IV .BY DURATION [facility] Rx#: [id number] Oral 180 Output: Urine 400 Other: Voiding Method Toilet Toilet Toilet Urinal Urinal Urinal # Voids 3 # Bowel Movements 1 - Exam GENERAL DESCRIPTION: An elderly male lying in bed in no distress RESPIRATORY SYSTEM: Unlabored breathing , decreased breath sounds at bases HEART: S1 S2 regular rate and rhythm , ABDOMEN: Soft , no tenderness EXTREMITIES: No edema feet - Labs CBC & Chem 7: 05/04/21 04:53 05/05/21 03:54 Labs: Abnormal Lab Results - Last 24 Hours (Table) 05/04/21 05/04/21 05/05/21 Range/Units 16:27 23:58 03:54 Chloride 108 H (98-107) mmol/L Glucose 127 H (74-99) mg/dL POC Glucose (mg/dL) 125 H 130 H (75-99) mg/dL Magnesium 2.4 H (1.6-2.3) mg/dL Total Protein 5.7 L (6.3-8.2) g/dL Albumin 2.9 L (3.5-5.0) g/dL 05/05/21 05/05/21 Range/Units 06:18 11:41 Chloride (98-107) mmol/L Glucose (74-99) mg/dL POC Glucose (mg/dL) 126 H 148 H (75-99) mg/dL Magnesium (1.6-2.3) mg/dL Total Protein (6.3-8.2) g/dL Albumin (3.5-5.0) g/dL Microbiology - Last 24 Hours (Table) 05/03/21 11:21 Blood Culture - Preliminary Blood No Growth after 48 hours Assessment and Plan (1) Acute appendicitis with appendiceal abscess Current Visit: Yes Status: Acute Code(s): K35.33 - ACUTE APPENDICITIS WITH PERF AND LOC PERITONITIS, WITH ABSCS SNOMED Code(s): 211353075 Plan: 1patient presented to hospital more than a week ago with a 1 week history of right lower quadrant abdominal pain and the patient has been worked up for possible ileitis by GI and surgical services and has been treated with IV Levaquin and Flagyl now with repeat CT did shows evidence of perforated appendicitis with a periappendicular abscess which cannot be drained CT-guided per interventional radiology, we will need to cover for the enteric gram- negative both aerobes and anaerobes with the abscess forming while the patient was Levaquin and Flagyl will require for resistant gram-negative bacteria. 2patient seems to be clinically responding to Zosyn 3.375 g every 8 hour, as we do not have any microbiological data for this abscess, medical Main continue the patient on IV Zosyn in the outpatient setting to finish his two-week course of therapy this was discussed with the admitting physician as well as the rehabilitation caseworker Time with Patient: Less than 30
[2021-05-06] MEDS: POTASSIUM ACETATE IV SCH ×16 (00:54→15:07)
[2021-05-06] MEDS: CALCIUM GLUCONATE IV SCH ×16 (00:54→15:07)
[2021-05-06] MEDS: [UNRECOGNIZED DRUG - OTHER] IV SCH ×16 (00:54→15:07)
[2021-05-06] MEDS: SODIUM ACETATE IV SCH ×16 (00:54→15:07)
[2021-05-06] MEDS: MVI IV SCH ×16 (00:54→15:07)
[2021-05-06 03:27] LABS: Glucose,Whole Blood 130 mg/dL (75-99)
[2021-05-06] MEDS: PIPERACILLIN-TAZOBACTAM 3.375 GM in SODIUM CHLORIDE 0.9% 100 ML IVPB SCH ×3 (04:00→18:36)
[2021-05-06] MEDS: KETOROLAC 30 MG/ML 1 ML VIAL IVP SCH ×3 (05:44→16:57)
[2021-05-06 06:24] LABS: Glucose,Whole Blood 131 mg/dL (75-99)
[2021-05-06 06:27] LABS: African American GFR (CKD) >90 (>60 ml/min/1.73 sqM); Anion Gap 4 mmol/L; Blood Urea Nitrogen 16 mg/dL (9-20); Carbon Dioxide 27 mmol/L (22-30); Chloride 105 mmol/L (98-107); Glucose 126 mg/dL (74-99); Magnesium 2.2 mg/dL (1.6-2.3); Non-African American GFR(CKD) 85 (>60 ml/min/1.73 sqM); Phosphorus 3.8 mg/dL (2.5-4.5); Potassium 3.8 mmol/L (3.5-5.1); Sodium 136 mmol/L (137-145)
[2021-05-06] MEDS: lisinopriL 10 MG TAB PO SCH (07:00)
[2021-05-06] MEDS: METOPROLOL TARTRATE 25 MG TAB PO SCH ×2 (07:01→20:12)
[2021-05-06] MEDS: PANTOPRAZOLE 40 MG/10 ML VIAL IVP SCH (08:45)
[2021-05-06] MEDS: HYDROmorphone 1 MG/ML 1 ML SYRINGE IVP PRN ×3 (10:59→20:16)
[2021-05-06 11:39] LABS: Glucose,Whole Blood 141 mg/dL (75-99)
--- NOTE | 2021-05-06 13:59 | P.PN ---
Subjective Progress Note Date: 05/06/21 CHIEF COMPLAINT: Abdominal pain HISTORY OF PRESENT ILLNESS: The patient is a 70 year old male admitted due to bowel obstruction including right lower quadrant abdominal pain and ileitis with ascending colitis. Now with repeat computed tomography scan showing evidence of appendicitis with phlegmon and small periappendiceal abscess. Patient has been tolerating full liquid diet. No further episodes of vomiting. He is having bowel movements. Reports improvement in his abdominal pain. He usually does still have some abdominal distention. Afebrile sodium 136 creatinine 0.90. project manager/design manager is working on arranging outpatient IV antibiotics. PHYSICAL EXAM: VITAL SIGNS: Reviewed GENERAL: Well-developed in no acute distress. HEENT: No sclera icterus. Extraocular movements grossly intact. Moist buccal mucosa. Head is atraumatic, normocephalic. Hears conversational speech. No nasal drainage. NECK: Supple without lymphadenopathy. CHEST: Non-labored respirations and equal bilateral excursions. CARDIOVASCULAR: Palpable 2+ radial pulses. ABDOMEN: Softer and less distended than yesterday. Minimal tenderness in the right lower quadrant. MUSCULOSKELETAL: No clubbing or cyanosis. NEUROLOGIC: No focal or lateralizing signs. Cranial nerves II through XII grossly intact. PSYCH: Appropriate affect. Alert and oriented to person, place and time. SKIN: Well perfused. Good skin turgor. ASSESSMENT: 1. Appendicitis with phlegmon and small periappendiceal abscess 2. Abnormal computed tomography scan for inflammation ileitis, colitis 3. Abdominal pain 4. Inflammatory bowel disease, cannot be excluded 5. Bowel obstruction Noted On previous computed tomography scan now showed improvement PLAN: -Advance diet to low fiber -Okay to discharge from surgical standpoint if tolerating diet and is medically cleared -No surgical intervention planned. -Discharge antibiotics per ID service -Wean patient off of TPN Physician Can Inspector note has been reviewed by physician. Signing provider agrees with the documented findings, assessment, and plan of care. Objective - Vital Signs Vital signs: Vital Signs Temp 98.3 F 05/06/21 07:36 Pulse 67 05/06/21 07:36 Resp 15 05/06/21 02:10 BP 139/76 05/06/21 07:36 Pulse Ox 95 05/06/21 07:36 Intake & Output 05/05/21 05/06/21 05/06/21 18:59 06:59 18:59 Intake Total 8666.250 4632.167 Output Total 100 Balance 1283.333 -100 2049.167 Weight 97.522 kg Intake: Intake, IV Titration 829.267 5098.167 Amount Sodium Acetate 15 meq 923.333 Potassium Acetate 15 meq Magnesium Sulfate gm 0.5 gm Calcium Gluconate 1 gm In Amino Acid 5%-D15w 1, 000 ml @ 100 mls/hr IV . BY DURATION [facility] Rx#: [id number] Sodium Acetate 20 meq 1040.5 Potassium Acetate 15 meq Calcium Gluconate 1 gm Mvi, Adult No.4 with Vit K 10 ml Trace (Conc-1Ml/ Dose) 1 ml Potassium Phosphate 6 mmol In Amino Acids 5 %/Dextrose 20 % 1,000 ml @ 85 mls/hr IV . BY DURATION [facility] Rx#: [id number] Sodium Acetate 20 meq 1008.667 Potassium Acetate 15 meq Magnesium Sulfate gm 0.5 gm Calcium Gluconate 1 gm Potassium Phosphate 6 mmol In Amino Acids 5 %/ Dextrose 20 % 1,000 ml @ 85 mls/hr IV .BY DURATION [facility] Rx#:[id number] Oral 360 Output: Urine 100 Other: Voiding Method Toilet Toilet Toilet Urinal Urinal Urinal # Voids 9 # Bowel Movements 2 0 - Labs CBC & Chem 7: 05/04/21 04:53 05/06/21 05:59 Labs: Abnormal Lab Results - Last 24 Hours (Table) 05/05/21 05/06/21 05/06/21 Range/Units 18:01 03:24 05:59 Sodium 136 L (137-145) mmol/L Glucose 126 H (74-99) mg/dL POC Glucose (mg/dL) 139 H 130 H (75-99) mg/dL Calcium 8.0 L (8.4-10.2) mg/dL 05/06/21 05/06/21 Range/Units 06:22 11:37 Sodium (137-145) mmol/L Glucose (74-99) mg/dL POC Glucose (mg/dL) 131 H 141 H (75-99) mg/dL Calcium (8.4-10.2) mg/dL Microbiology - Last 24 Hours (Table) 05/03/21 11:21 Blood Culture - Preliminary Blood No Growth after 48 hours
--- NOTE | 2021-05-06 15:36 | P.PN ---
Subjective Progress Note Date: 05/06/21 Principal diagnosis: Intra-abdominal abscess Patient is a 70-year-old male admitted to the hospital with right lower quadrant abdominal pain and vomiting in this patient repeat CT that shows evidence of right lower quadrant abscess and possible perforated appendicitis On today's evaluation that is 05/06/2021, the patient continues to be afebrile, the patient is abdominal pain has decreased in intensity and the patient denies any nausea or vomiting did have some diarrhea, patient denies chest pain shortness of breath or cough Objective - Vital Signs Vital signs: Vital Signs Temp 98.3 F 05/06/21 07:36 Pulse 67 05/06/21 07:36 Resp 15 05/06/21 02:10 BP 139/76 05/06/21 07:36 Pulse Ox 95 05/06/21 07:36 Intake & Output 05/05/21 05/06/21 05/06/21 18:59 06:59 18:59 Intake Total 5618.835 7086.167 Output Total 100 Balance 1283.333 -100 2049.167 Intake: Intake, IV Titration 997.896 1062.167 Amount Sodium Acetate 15 meq 923.333 Potassium Acetate 15 meq Magnesium Sulfate gm 0.5 gm Calcium Gluconate 1 gm In Amino Acid 5%-D15w 1, 000 ml @ 100 mls/hr IV . BY DURATION [facility] Rx#: [id number] Sodium Acetate 20 meq 1040.5 Potassium Acetate 15 meq Calcium Gluconate 1 gm Mvi, Adult No.4 with Vit K 10 ml Trace (Conc-1Ml/ Dose) 1 ml Potassium Phosphate 6 mmol In Amino Acids 5 %/Dextrose 20 % 1,000 ml @ 85 mls/hr IV . BY DURATION [facility] Rx#: [id number] Sodium Acetate 20 meq 1008.667 Potassium Acetate 15 meq Magnesium Sulfate gm 0.5 gm Calcium Gluconate 1 gm Potassium Phosphate 6 mmol In Amino Acids 5 %/ Dextrose 20 % 1,000 ml @ 85 mls/hr IV .BY DURATION [facility] Rx#:[id number] Oral 360 Output: Urine 100 Other: Voiding Method Toilet Toilet Toilet Urinal Urinal Urinal # Voids 9 # Bowel Movements 2 0 - Exam GENERAL DESCRIPTION: An elderly male lying in bed in no distress RESPIRATORY SYSTEM: Unlabored breathing , decreased breath sounds at bases HEART: S1 S2 regular rate and rhythm , ABDOMEN: Soft , no tenderness EXTREMITIES: No edema feet - Labs CBC & Chem 7: 05/04/21 04:53 05/06/21 05:59 Labs: Abnormal Lab Results - Last 24 Hours (Table) 05/05/21 05/06/21 05/06/21 Range/Units 18:01 03:24 05:59 Sodium 136 L (137-145) mmol/L Glucose 126 H (74-99) mg/dL POC Glucose (mg/dL) 139 H 130 H (75-99) mg/dL Calcium 8.0 L (8.4-10.2) mg/dL 05/06/21 05/06/21 Range/Units 06:22 11:37 Sodium (137-145) mmol/L Glucose (74-99) mg/dL POC Glucose (mg/dL) 131 H 141 H (75-99) mg/dL Calcium (8.4-10.2) mg/dL Microbiology - Last 24 Hours (Table) 05/03/21 11:21 Blood Culture - Preliminary Blood No Growth after 48 hours Assessment and Plan (1) Acute appendicitis with appendiceal abscess Current Visit: Yes Status: Acute Code(s): K35.33 - ACUTE APPENDICITIS WITH PERF AND LOC PERITONITIS, WITH ABSCS SNOMED Code(s): 584850538 Plan: 1patient presented to hospital more than a week ago with a 1 week history of right lower quadrant abdominal pain and the patient has been worked up for possible ileitis by GI and surgical services and has been treated with IV Levaquin and Flagyl now with repeat CT did shows evidence of perforated appendicitis with a periappendicular abscess which cannot be drained CT-guided per interventional radiology, will need to cover for the enteric gram-negative both aerobes and anaerobes with the abscess forming while the patient was Levaquin and Flagyl will require for resistant gram-negative bacteria. 2patient is clinically responding to Zosyn 3.375 g every 8 hour, plan is for possible PICC on a midline and outpatient IV antibiotic on discharge this was discussed with the sample case porter Time with Patient: Less than 30
[2021-05-06 18:13] LABS: Glucose,Whole Blood 137 mg/dL (75-99)
[2021-05-06] MEDS: BENZOCAINE/MENTHOL LOZENG 1 EACH LOZENGE MUCOUS MEM PRN (18:14)
--- NOTE | 2021-05-06 18:47 | P.PN ---
Progress Note - Text Progress Note Date: 05/06/21 Hospital course: Patient admitted with abdominal pain. Found to mechanical small bowel obstruct ion. NG tube was placed Pepe the patient pointed out in the middle of the night. April 27: Patient denies chest. Abdomen distended. Abdominal pain present. Last bowel movement was 4 days ago. No nausea vomiting. X-ray showing increasing dilatations of bowel. Patient was later seen by general surgery mancini and reinsertion of NG tube. No BM. No flatus. On IV Levaquin and Flagyl. April 28: Patient had a small BM. Some flatus. Has been out of bed. No nausea vomiting. Improvement in abdominal pain. Diet advanced to clear liquids by surgery. Abdominal x-ray still showing significant bowel dilatation. April 29: Patient still has some abdominal pain. He describes about 8 inch long BM. Dark in color. No nausea vomiting. Surgery earlier downgraded patient's diet to ice chips. Has been up to the bathroom. Abdomen still distended April 30: NG tube was placed last night. Abdominal distention. Some flatus. Abdominal discomfort. No nausea vomiting. Abdominal x-ray from last night showing significant small bowel obstruction. May 01: NG tube to suction. Abdominal pain present. at the bedside. No nausea vomiting. Has been passing some flatus. Start the patient on TPN and lipids after getting a PICC line May 02: PICC line today. NG tube to suction. Some improvement in abdominal pain. Positive some flatus. TPN and lipids being started. Computed tomography scan shows inflamed appendix, small periappendiceal abscess 3.9 x 3.2 cm findings of ileus. Surgery GI following. May 03: NG tube to suction remains in place. Abdomen distended. Lower abdominal pain. Per interventional radiology abscess small for them to going. Getting TPN and lipids. Discussed with the patient about continuation of antibiotics for the present time. Further decision as per surgery. May 04: NG tube discontinued. Has some abdominal pain. TPN and lipids. His nothing by mouth except for ice chips. Discussed with patient. Activity as tolerated. Continue antibiotics. No plans for surgical intervention by surgery May 05: Patient on full liquid diet. Had some loose stools. Abdominal pain better. On TPN and lipids. Family at the bedside. Up to the bathroom. Patient did throw up his breakfast. Discussed with Dr. Pinedo yesterday evening plan to continue with antibiotics for now no surgical intervention currently. May 06: Patient faster low fiber diet by surgery. Still has abdominal pain. But acceptable. describes small squirts of BM. TPN and lipids taken off. Was up in a chair. No nausea vomiting Active Medications Albuterol Sulfate (Albuterol Hfa Inhaler) 2 puff INHALATION RT-Q4H PRN PRN Reason: Shortness Of Breath Benzocaine/Menthol (Benzocaine/Menthol Lozeng 1 Each Lozenge) 1 each MUCOUS MEM Q4HR PRN PRN Reason: Cough Last Admin: 05/06/21 18:14 Dose: 1 each Documented by: Hydromorphone HCl (Hydromorphone 1 Mg/Ml 1 Ml Syringe) 1 mg IVP Q3HR PRN PRN Reason: Moderate to Severe Pain Last Admin: 05/06/21 17:00 Dose: 1 mg Documented by: Fat Emulsion Intravenous 500 (ml/ IV Solution) 500 mls @ 42 mls/hr IV Mo [facility] Last Admin: 05/02/21 17:14 Dose: 42 mls/hr Documented by: Piperacillin Sod/Tazobactam (Sod 3.375 gm/ Sodium Chloride) 100 mls @ 25 mls/hr IVPB Q8H [facility]; Protocol Last Admin: 05/06/21 18:36 Dose: 25 mls/hr Documented by: Sodium Acetate 20 meq/Potassium Acetate 15 meq/Calcium Gluconate 1 gm/Parenteral Vitamin Supplement 10 ml/ Zinc/Copper/Manganese/Selenium 1 ml/ Potassium Phosphate 6 mmol/ Amino Acids/Dextrose 1,040.5 mls @ 85 mls/hr IV .BY DURATION [facility] Last Admin: 05/06/21 15:07 Dose: 40 mls/hr Documented by: Sodium Acetate 20 meq/Potassium Acetate 15 meq/Magnesium Sulfate 0.5 gm/Calcium Gluconate 1 gm/Potassium Phosphate 6 mmol/Amino Acids/Dextrose 1,030.5 mls @ 85 mls/hr IV .BY DURATION [facility] Last Infusion: 05/06/21 12:46 Dose: Infused Documented by: Ketorolac Tromethamine (Ketorolac 30 Mg/Ml 1 Ml Vial) 15 mg IVP Q6HR [facility] Stop: 05/07/21 19:40 Last Admin: 05/06/21 16:57 Dose: 15 mg Documented by: Lisinopril (Lisinopril 10 Mg Tab) 10 mg PO DAILY [facility] Last Admin: 05/06/21 07:00 Dose: 10 mg Documented by: Metoprolol Tartrate (Metoprolol Tartrate 25 Mg Tab) 25 mg PO BID [facility] Last Admin: 05/06/21 07:01 Dose: 25 mg Documented by: Naloxone HCl (Naloxone 0.4 Mg/Ml 1 Ml Vial) 0.2 mg IV Q2M PRN PRN Reason: Opioid Reversal Ondansetron HCl (Ondansetron 4 Mg/2 Ml Vial) 4 mg IVP Q8HR PRN PRN Reason: Nausea And Vomiting Last Admin: 05/05/21 08:37 Dose: 4 mg Documented by: Pantoprazole Sodium (Pantoprazole 40 Mg/10 Ml Vial) 40 mg IVP DAILY [facility] Last Admin: 05/06/21 08:45 Dose: 40 mg Documented by: Pramipexole Dihydrochloride (Pramipexole 1 Mg Tab) 1.5 mg PO HS@1900 [facility] Last Admin: 05/05/21 22:07 Dose: 1.5 mg Documented by: Sodium Chloride (Sodium Chloride 0.9% Flush 10 Ml Syringe) 10 ml IV Q4HR PRN PRN Reason: PICC Line Sodium Chloride (Sodium Chloride 0.9% Flush 10 Ml Syringe) 10 ml IV WEEKLY [facility] Sodium Chloride (Sodium Chloride 0.9% Flush 10 Ml Syringe) 20 ml IV Q4HR PRN PRN Reason: PICC Line Tamsulosin HCl (Tamsulosin 0.4 Mg Cap.Er.24h) 0.4 mg PO [facility] Last Admin: 05/05/21 22:07 Dose: 0.4 mg Documented by: Zolpidem Tartrate (Zolpidem 5 Mg Tab) 5 mg PO [facility] On examination: VITAL SIGNS: 98.3, 67, 16, 139 T 76, 95% room air GENERAL APPEARANCE: Reclining in bed, awake, tired HEENT: Normal external appearance of nose and ear. NG tube to intermittent suction EYES: Pupils equal. Conjunctiva normal. NECK: JVD not raised. Mass not palpable. RESPIRATORY: Respiratory effort normal. Lungs clear to auscultation. CARDIOVASCULAR: First and second sounds normal. No edema. ABDOMEN: Less distended, some tenderness , present bowel sounds, Liver and spleen not palpable. PSYCHIATRY: Alert and oriented x3. Mood and affect normal. INVESTIGATIONS, reviewed in the clinical context: May 06: Sodium 136 creatinine 0.9 May 05: Sodium 140 potassium 3.6 creatinine 0.98 May 04: Sodium 144 potassium 4 creatinine 1.02 white count 8.5 hemoglobin 12.4 May 03: Sodium 142 potassium 3.6 creatinine 1.0 albumin 2.6 May 02: Potassium 4.3 creatinine 1.13 Computed tomography scan of the abdomen and pelvis [April 24]: Right lower quadrant abscess/inflamed appendix associated with appendix May 01: White count 11.9 hemoglobin 12.8 potassium 4.4 creatinine 1.1 April 29: White count 9.3 hemoglobin 11.7 platelets 477. Pro-calcitonin 0.95 April 28: White count 9.9 hemoglobin 12 platelets 523. Abdominal x-ray shows diffusely dilated small bowel loops with air-fluid levels. Slight improvement. White count 13.5 hemoglobin 12.2 platelets 502 potassium 4.4 creatinine 1.2 CRP 29.8 procalcitonin 2.5 for Abdominal x-ray film personally reviewed by me dilated loops of bowel Computed tomography scan of the abdomen pelvis: Moderate inflammatory changes the right lower quadrant stopped and currently involving the distal ileum colon. Assessment and plan: -Acute appendicitis with phlegmon abscess: Slow to respond IV Zosyn, not for any surgical intervention per surgery at present. -Acute small bowel obstruction: Clinically better NG tube discontinued . Advance to soft bland diet -Paroxysmal Atrial fibrillation, currently in sinus rhythm On telemetry -Hyperlipidemia Crestor 5 mg by mouth Sunday -Essential hypertension Lisinopril 10 mg a day -Osteoarthritis, primary -Restless leg syndrome Mirapex 1.5 mg by mouth daily at bedtime -BPH Flomax 0.4 mg daily at bedtime -TPN and lipids started IV Zosyn. Soft bland diet. TPN and lipids-discontinued. Discussed with the patient.
[2021-05-06] MEDS: PRAMIPEXOLE 1 MG TAB PO SCH (20:11)
[2021-05-06] MEDS: TAMSULOSIN 0.4 MG CAP.ER.24H PO SCH (20:12)
[2021-05-06] MEDS: ZOLPIDEM 5 MG TAB PO SCH (20:12)
[2021-05-07 00:45] LABS: Glucose,Whole Blood 101 mg/dL (75-99)
[2021-05-07] MEDS: BENZOCAINE/MENTHOL LOZENG 1 EACH LOZENGE MUCOUS MEM PRN ×2 (00:45→08:18)
[2021-05-07] MEDS: KETOROLAC 30 MG/ML 1 ML VIAL IVP SCH ×4 (00:46→17:15)
[2021-05-07] MEDS: PIPERACILLIN-TAZOBACTAM 3.375 GM in SODIUM CHLORIDE 0.9% 100 ML IVPB SCH ×3 (02:17→18:02)
[2021-05-07] MEDS: HYDROmorphone 1 MG/ML 1 ML SYRINGE IVP PRN ×5 (02:17→22:00)
[2021-05-07] MEDS: SODIUM ACETATE IV SCH ×16 (05:17→11:17)
[2021-05-07] MEDS: [UNRECOGNIZED DRUG - OTHER] IV SCH ×16 (05:17→11:17)
[2021-05-07] MEDS: POTASSIUM ACETATE IV SCH ×16 (05:17→11:17)
[2021-05-07] MEDS: MVI IV SCH ×16 (05:17→11:17)
[2021-05-07] MEDS: CALCIUM GLUCONATE IV SCH ×16 (05:17→11:17)
[2021-05-07 05:49] LABS: African American GFR (CKD) 85 (>60 ml/min/1.73 sqM); Anion Gap 5 mmol/L; Blood Urea Nitrogen 15 mg/dL (9-20); Calcium 8.3 mg/dL (8.4-10.2); Carbon Dioxide 28 mmol/L (22-30); Chloride 103 mmol/L (98-107); Glucose 105 mg/dL (74-99); Magnesium 2.2 mg/dL (1.6-2.3); Non-African American GFR(CKD) 73 (>60 ml/min/1.73 sqM); Phosphorus 4.2 mg/dL (2.5-4.5); Sodium 136 mmol/L (137-145)
[2021-05-07 06:22] LABS: Glucose,Whole Blood 113 mg/dL (75-99)
[2021-05-07] MEDS: lisinopriL 10 MG TAB PO SCH (08:18)
[2021-05-07] MEDS: METOPROLOL TARTRATE 25 MG TAB PO SCH ×2 (08:18→19:42)
[2021-05-07] MEDS: PANTOPRAZOLE 40 MG/10 ML VIAL IVP SCH (08:18)
--- NOTE | 2021-05-07 11:00 | P.PN ---
Subjective Progress Note Date: 05/07/21 Principal diagnosis: Acute appendicitis Patient still has complaints of significant abdominal pain. His pain is actually worse in the right upper quadrant. He has been tolerating diet. Objective - Vital Signs Vital signs: Vital Signs Temp 97.8 F 05/07/21 07:13 Pulse 83 05/07/21 07:13 Resp 17 05/07/21 07:13 BP 169/91 05/07/21 07:13 Pulse Ox 96 05/07/21 07:13 Intake & Output 05/06/21 05/07/21 05/07/21 18:59 06:59 18:59 Intake Total 2049.167 1180 Balance 2049.167 1180 Weight 97.522 kg Intake: Intake, IV Titration 2048.167 580 Amount Piperacillin-Tazobactam 3 100 .375 gm In Sodium Chloride 0.9% 100 ml @ 25 mls/hr IVPB Q8H [facility] Rx#: [id number] Sodium Acetate 15 meq 480 Potassium Acetate 15 meq Magnesium Sulfate gm 0.5 gm Calcium Gluconate 1 gm In Amino Acids 5 %/ Dextrose 20 % 1,000 ml @ 85 mls/hr IV .BY DURATION [facility] Rx#:[id number] Sodium Acetate 20 meq 1040.5 Potassium Acetate 15 meq Calcium Gluconate 1 gm Mvi, Adult No.4 with Vit K 10 ml Trace (Conc-1Ml/ Dose) 1 ml Potassium Phosphate 6 mmol In Amino Acids 5 %/Dextrose 20 % 1,000 ml @ 85 mls/hr IV . BY DURATION [facility] Rx#: [id number] Sodium Acetate 20 meq 1008.667 Potassium Acetate 15 meq Magnesium Sulfate gm 0.5 gm Calcium Gluconate 1 gm Potassium Phosphate 6 mmol In Amino Acids 5 %/ Dextrose 20 % 1,000 ml @ 85 mls/hr IV .BY DURATION [facility] Rx#:[id number] Oral 600 Other: Voiding Method Toilet Toilet Urinal Urinal # Voids 5 1 - Gastrointestinal Gastrointestinal Comment(s): Abdomen soft. There is tenderness in the right quadrant. There is no rebound or guarding. - Labs CBC & Chem 7: 05/04/21 04:53 05/07/21 04:28 Labs: Abnormal Lab Results - Last 24 Hours (Table) 05/06/21 05/06/21 05/07/21 Range/Units 11:37 18:11 00:42 Sodium (137-145) mmol/L Glucose (74-99) mg/dL POC Glucose (mg/dL) 141 H 137 H 101 H (75-99) mg/dL Calcium (8.4-10.2) mg/dL Procalcitonin (0.02-0.09) ng/mL 05/07/21 05/07/21 05/07/21 Range/Units 04:28 04:29 06:20 Sodium 136 L (137-145) mmol/L Glucose 105 H (74-99) mg/dL POC Glucose (mg/dL) 113 H (75-99) mg/dL Calcium 8.3 L (8.4-10.2) mg/dL Procalcitonin 0.13 H (0.02-0.09) ng/mL Microbiology - Last 24 Hours (Table) 05/03/21 11:21 Blood Culture - Preliminary Blood No Growth after 72 hours Assessment and Plan Assessment: Chronic appendicitis. Patient will receive IV antibiotics. Once his pain is improved he'll be discharged home. He'll be scheduled for interval appendectomy with Dr. Pinedo as an outpatient.
[2021-05-07 11:23] LABS: Glucose,Whole Blood 99 mg/dL (75-99)
--- NOTE | 2021-05-07 14:23 | P.PN ---
Progress Note - Text Progress Note Date: 05/07/21 Hospital course: Patient admitted with abdominal pain. Found to mechanical small bowel obstruct ion. NG tube was placed Pepe the patient pointed out in the middle of the night. April 27: Patient denies chest. Abdomen distended. Abdominal pain present. Last bowel movement was 4 days ago. No nausea vomiting. X-ray showing increasing dilatations of bowel. Patient was later seen by general surgery mancini and reinsertion of NG tube. No BM. No flatus. On IV Levaquin and Flagyl. April 28: Patient had a small BM. Some flatus. Has been out of bed. No nausea vomiting. Improvement in abdominal pain. Diet advanced to clear liquids by surgery. Abdominal x-ray still showing significant bowel dilatation. April 29: Patient still has some abdominal pain. He describes about 8 inch long BM. Dark in color. No nausea vomiting. Surgery earlier downgraded patient's diet to ice chips. Has been up to the bathroom. Abdomen still distended April 30: NG tube was placed last night. Abdominal distention. Some flatus. Abdominal discomfort. No nausea vomiting. Abdominal x-ray from last night showing significant small bowel obstruction. May 01: NG tube to suction. Abdominal pain present. at the bedside. No nausea vomiting. Has been passing some flatus. Start the patient on TPN and lipids after getting a PICC line May 02: PICC line today. NG tube to suction. Some improvement in abdominal pain. Positive some flatus. TPN and lipids being started. Computed tomography scan shows inflamed appendix, small periappendiceal abscess 3.9 x 3.2 cm findings of ileus. Surgery GI following. May 03: NG tube to suction remains in place. Abdomen distended. Lower abdominal pain. Per interventional radiology abscess small for them to going. Getting TPN and lipids. Discussed with the patient about continuation of antibiotics for the present time. Further decision as per surgery. May 04: NG tube discontinued. Has some abdominal pain. TPN and lipids. His nothing by mouth except for ice chips. Discussed with patient. Activity as tolerated. Continue antibiotics. No plans for surgical intervention by surgery May 05: Patient on full liquid diet. Had some loose stools. Abdominal pain better. On TPN and lipids. Family at the bedside. Up to the bathroom. Patient did throw up his breakfast. Discussed with Dr. Pinedo yesterday evening plan to continue with antibiotics for now no surgical intervention currently. May 06: Patient faster low fiber diet by surgery. Still has abdominal pain. But acceptable. describes small squirts of BM. TPN and lipids taken off. Was up in a chair. No nausea vomiting May 07: Low fiber diet. Continues to have right lower quadrant pain. Some episodes of loose stool. Up in a chair. Discussed with patient and . No nausea vomiting Active Medications Albuterol Sulfate (Albuterol Hfa Inhaler) 2 puff INHALATION RT-Q4H PRN PRN Reason: Shortness Of Breath Benzocaine/Menthol (Benzocaine/Menthol Lozeng 1 Each Lozenge) 1 each MUCOUS MEM Q4HR PRN PRN Reason: Cough Last Admin: 05/07/21 08:18 Dose: 1 each Documented by: Hydromorphone HCl (Hydromorphone 1 Mg/Ml 1 Ml Syringe) 1 mg IVP Q3HR PRN PRN Reason: Moderate to Severe Pain Last Admin: 05/07/21 11:23 Dose: 1 mg Documented by: Piperacillin Sod/Tazobactam (Sod 3.375 gm/ Sodium Chloride) 100 mls @ 25 mls/hr IVPB Q8H [facility]; Protocol Last Admin: 05/07/21 11:22 Dose: 25 mls/hr Documented by: Sodium Acetate 20 meq/Potassium Acetate 15 meq/Calcium Gluconate 1 gm/Parenteral Vitamin Supplement 10 ml/ Zinc/Copper/Manganese/Selenium 1 ml/ Potassium Phosphate 6 mmol/ Amino Acids/Dextrose 1,040.5 mls @ 85 mls/hr IV .BY DURATION [facility] Stop: 05/07/21 17:00 Last Admin: 05/07/21 11:17 Dose: Not Given Documented by: Sodium Acetate 20 meq/Potassium Acetate 15 meq/Magnesium Sulfate 0.5 gm/Calcium Gluconate 1 gm/Potassium Phosphate 6 mmol/Amino Acids/Dextrose 1,030.5 mls @ 85 mls/hr IV .BY DURATION [facility] Stop: 05/07/21 17:00 Last Admin: 05/07/21 05:17 Dose: Not Given Documented by: Ketorolac Tromethamine (Ketorolac 30 Mg/Ml 1 Ml Vial) 15 mg IVP Q6HR [facility] Stop: 05/07/21 19:40 Last Admin: 05/07/21 11:22 Dose: 15 mg Documented by: Lisinopril (Lisinopril 10 Mg Tab) 10 mg PO DAILY [facility] Last Admin: 05/07/21 08:18 Dose: 10 mg Documented by: Metoprolol Tartrate (Metoprolol Tartrate 25 Mg Tab) 25 mg PO BID [facility] Last Admin: 05/07/21 08:18 Dose: 25 mg Documented by: Naloxone HCl (Naloxone 0.4 Mg/Ml 1 Ml Vial) 0.2 mg IV Q2M PRN PRN Reason: Opioid Reversal Ondansetron HCl (Ondansetron 4 Mg/2 Ml Vial) 4 mg IVP Q8HR PRN PRN Reason: Nausea And Vomiting Last Admin: 05/05/21 08:37 Dose: 4 mg Documented by: Pantoprazole Sodium (Pantoprazole 40 Mg/10 Ml Vial) 40 mg IVP DAILY [facility] Last Admin: 05/07/21 08:18 Dose: 40 mg Documented by: Pramipexole Dihydrochloride (Pramipexole 1 Mg Tab) 1.5 mg PO HS@1900 [facility] Last Admin: 05/06/21 20:11 Dose: 1.5 mg Documented by: Sodium Chloride (Sodium Chloride 0.9% Flush 10 Ml Syringe) 10 ml IV Q4HR PRN PRN Reason: PICC Line Sodium Chloride (Sodium Chloride 0.9% Flush 10 Ml Syringe) 10 ml IV WEEKLY [facility] Sodium Chloride (Sodium Chloride 0.9% Flush 10 Ml Syringe) 20 ml IV Q4HR PRN PRN Reason: PICC Line Tamsulosin HCl (Tamsulosin 0.4 Mg Cap.Er.24h) 0.4 mg PO [facility] Last Admin: 05/06/21 20:12 Dose: 0.4 mg Documented by: Zolpidem Tartrate (Zolpidem 5 Mg Tab) 5 mg PO [facility] Last Admin: 05/06/21 20:12 Dose: 5 mg Documented by: On examination: VITAL SIGNS: 97.8, 83, 17, 160 11/12/1990, 96% room air GENERAL APPEARANCE: Reclining in bed, awake, tired HEENT: Normal external appearance of nose and ear. NG tube to intermittent suction EYES: Pupils equal. Conjunctiva normal. NECK: JVD not raised. Mass not palpable. RESPIRATORY: Respiratory effort normal. Lungs clear to auscultation. CARDIOVASCULAR: First and second sounds normal. No edema. ABDOMEN: Less distended, right lower abdomen tenderness, present bowel sounds, Liver and spleen not palpable. PSYCHIATRY: Alert and oriented x3. Mood and affect normal. INVESTIGATIONS, reviewed in the clinical context: May 07: Sodium 136 creatinine 1.02 pro-calcitonin 0.13 May 06: Sodium 136 creatinine 0.9 May 05: Sodium 140 potassium 3.6 creatinine 0.98 May 04: Sodium 144 potassium 4 creatinine 1.02 white count 8.5 hemoglobin 12.4 May 03: Sodium 142 potassium 3.6 creatinine 1.0 albumin 2.6 May 02: Potassium 4.3 creatinine 1.13 Computed tomography scan of the abdomen and pelvis [April 24]: Right lower quadrant abscess/inflamed appendix associated with appendix May 01: White count 11.9 hemoglobin 12.8 potassium 4.4 creatinine 1.1 April 29: White count 9.3 hemoglobin 11.7 platelets 477. Pro-calcitonin 0.95 April 28: White count 9.9 hemoglobin 12 platelets 523. Abdominal x-ray shows diffusely dilated small bowel loops with air-fluid levels. Slight improvement. White count 13.5 hemoglobin 12.2 platelets 502 potassium 4.4 creatinine 1.2 CRP 29.8 procalcitonin 2.5 for Abdominal x-ray film personally reviewed by me dilated loops of bowel Computed tomography scan of the abdomen pelvis: Moderate inflammatory changes the right lower quadrant stopped and currently involving the distal ileum colon. Assessment and plan: -Acute appendicitis with phlegmon abscess: Slow to respond IV Zosyn, not for any surgical intervention per surgery at present. Soft bland diet -Acute small bowel obstruction: Clinically better NG tube discontinued . soft bland diet -Paroxysmal Atrial fibrillation, currently in sinus rhythm On telemetry -Hyperlipidemia Crestor 5 mg by mouth Sunday -Essential hypertension Lisinopril 10 mg a day -Osteoarthritis, primary -Restless leg syndrome Mirapex 1.5 mg by mouth daily at bedtime -BPH Flomax 0.4 mg daily at bedtime -TPN and lipids started April 01 Discontinued May 06 IV Zosyn. Soft bland diet. Discussed with the patient. Activity as tolerated.
[2021-05-07 16:28] LABS: Glucose,Whole Blood 97 mg/dL (75-99)
[2021-05-07] MEDS: PRAMIPEXOLE 1 MG TAB PO SCH (19:41)
[2021-05-07] MEDS: TAMSULOSIN 0.4 MG CAP.ER.24H PO SCH (19:42)
[2021-05-07] MEDS: ZOLPIDEM 5 MG TAB PO SCH (19:42)
[2021-05-08] MEDS: PIPERACILLIN-TAZOBACTAM 3.375 GM in SODIUM CHLORIDE 0.9% 100 ML IVPB SCH ×3 (03:04→20:10)
[2021-05-08] MEDS: HYDROmorphone 1 MG/ML 1 ML SYRINGE IVP PRN ×2 (03:04→08:52)
[2021-05-08 04:24] LABS: African American GFR (CKD) 77 (>60 ml/min/1.73 sqM); Anion Gap 8 mmol/L; Blood Urea Nitrogen 16 mg/dL (9-20); Calcium 8.3 mg/dL (8.4-10.2); Carbon Dioxide 23 mmol/L (22-30); Chloride 105 mmol/L (98-107); Glucose 87 mg/dL (74-99); Magnesium 2.1 mg/dL (1.6-2.3); Non-African American GFR(CKD) 66 (>60 ml/min/1.73 sqM); Phosphorus 4.5 mg/dL (2.5-4.5); Potassium 4.5 mmol/L (3.5-5.1); Sodium 136 mmol/L (137-145)
[2021-05-08] MEDS: PANTOPRAZOLE 40 MG/10 ML VIAL IVP SCH (08:44)
[2021-05-08] MEDS: lisinopriL 10 MG TAB PO SCH (08:44)
[2021-05-08] MEDS: METOPROLOL TARTRATE 25 MG TAB PO SCH ×2 (08:44→20:11)
--- NOTE | 2021-05-08 11:13 | P.PN ---
Subjective Progress Note Date: 05/08/21 Principal diagnosis: Chronic appendicitis Patient still has complaints of significant right-sided abdominal pain. He was feeling better earlier. However he does have some pain currently. He rates his pain a 4-5 out of 10. Objective - Vital Signs Vital signs: Vital Signs Temp 99.1 F 05/08/21 07:10 Pulse 92 05/08/21 07:10 Resp 18 05/08/21 07:10 BP 166/84 05/08/21 07:10 Pulse Ox 95 05/08/21 07:10 Intake & Output 05/07/21 05/08/21 05/08/21 18:59 06:59 18:59 Other: Voiding Method Toilet Toilet Urinal Urinal # Voids 1 3 - Gastrointestinal Gastrointestinal Comment(s): Abdomen soft. There is marked tenderness in the right upper quadrant. There is a little bit lesser some right lower quadrant. - Labs CBC & Chem 7: 05/04/21 04:53 05/08/21 03:08 Labs: Abnormal Lab Results - Last 24 Hours (Table) 05/08/21 Range/Units 03:08 Sodium 136 L (137-145) mmol/L Calcium 8.3 L (8.4-10.2) mg/dL Microbiology - Last 24 Hours (Table) 05/03/21 11:21 Blood Culture - Preliminary Blood No Growth after 96 hours Assessment and Plan Plan: Chronic appendicitis. Patient will continue receive IV antibiotic. He will be followed by Dr. Pinedo tomorrow. The ultimate plan is for an interval appendectomy.
--- NOTE | 2021-05-08 15:33 | P.PN ---
Progress Note - Text Progress Note Date: 05/08/21 Hospital course: Patient admitted with abdominal pain. Found to mechanical small bowel obstruct ion. NG tube was placed Pepe the patient pointed out in the middle of the night. April 27: Patient denies chest. Abdomen distended. Abdominal pain present. Last bowel movement was 4 days ago. No nausea vomiting. X-ray showing increasing dilatations of bowel. Patient was later seen by general surgery mancini and reinsertion of NG tube. No BM. No flatus. On IV Levaquin and Flagyl. April 28: Patient had a small BM. Some flatus. Has been out of bed. No nausea vomiting. Improvement in abdominal pain. Diet advanced to clear liquids by surgery. Abdominal x-ray still showing significant bowel dilatation. April 29: Patient still has some abdominal pain. He describes about 8 inch long BM. Dark in color. No nausea vomiting. Surgery earlier downgraded patient's diet to ice chips. Has been up to the bathroom. Abdomen still distended April 30: NG tube was placed last night. Abdominal distention. Some flatus. Abdominal discomfort. No nausea vomiting. Abdominal x-ray from last night showing significant small bowel obstruction. May 01: NG tube to suction. Abdominal pain present. at the bedside. No nausea vomiting. Has been passing some flatus. Start the patient on TPN and lipids after getting a PICC line May 02: PICC line today. NG tube to suction. Some improvement in abdominal pain. Positive some flatus. TPN and lipids being started. Computed tomography scan shows inflamed appendix, small periappendiceal abscess 3.9 x 3.2 cm findings of ileus. Surgery GI following. May 03: NG tube to suction remains in place. Abdomen distended. Lower abdominal pain. Per interventional radiology abscess small for them to going. Getting TPN and lipids. Discussed with the patient about continuation of antibiotics for the present time. Further decision as per surgery. May 04: NG tube discontinued. Has some abdominal pain. TPN and lipids. His nothing by mouth except for ice chips. Discussed with patient. Activity as tolerated. Continue antibiotics. No plans for surgical intervention by surgery May 05: Patient on full liquid diet. Had some loose stools. Abdominal pain better. On TPN and lipids. Family at the bedside. Up to the bathroom. Patient did throw up his breakfast. Discussed with Dr. Pinedo yesterday evening plan to continue with antibiotics for now no surgical intervention currently. May 06: Patient faster low fiber diet by surgery. Still has abdominal pain. But acceptable. describes small squirts of BM. TPN and lipids taken off. Was up in a chair. No nausea vomiting May 07: Low fiber diet. Continues to have right lower quadrant pain. Some episodes of loose stool. Up in a chair. Discussed with patient and . No nausea vomiting May 08: Tolerating diet. States no BM for last 2 days. No nausea vomiting. Some improvement in abdominal pain. Did walk a bit. Active Medications Albuterol Sulfate (Albuterol Hfa Inhaler) 2 puff INHALATION RT-Q4H PRN PRN Reason: Shortness Of Breath Benzocaine/Menthol (Benzocaine/Menthol Lozeng 1 Each Lozenge) 1 each MUCOUS MEM Q4HR PRN PRN Reason: Cough Last Admin: 05/07/21 08:18 Dose: 1 each Documented by: Hydromorphone HCl (Hydromorphone 1 Mg/Ml 1 Ml Syringe) 1 mg IVP Q3HR PRN PRN Reason: Moderate to Severe Pain Last Admin: 05/08/21 08:52 Dose: 1 mg Documented by: Piperacillin Sod/Tazobactam (Sod 3.375 gm/ Sodium Chloride) 100 mls @ 25 mls/hr IVPB Q8H [facility]; Protocol Last Admin: 05/08/21 08:45 Dose: 25 mls/hr Documented by: Lisinopril (Lisinopril 10 Mg Tab) 10 mg PO DAILY [facility] Last Admin: 05/08/21 08:44 Dose: 10 mg Documented by: Metoprolol Tartrate (Metoprolol Tartrate 25 Mg Tab) 25 mg PO BID [facility] Last Admin: 05/08/21 08:44 Dose: 25 mg Documented by: Naloxone HCl (Naloxone 0.4 Mg/Ml 1 Ml Vial) 0.2 mg IV Q2M PRN PRN Reason: Opioid Reversal Ondansetron HCl (Ondansetron 4 Mg/2 Ml Vial) 4 mg IVP Q8HR PRN PRN Reason: Nausea And Vomiting Last Admin: 05/05/21 08:37 Dose: 4 mg Documented by: Pantoprazole Sodium (Pantoprazole 40 Mg/10 Ml Vial) 40 mg IVP DAILY [facility] Last Admin: 05/08/21 08:44 Dose: 40 mg Documented by: Pramipexole Dihydrochloride (Pramipexole 1 Mg Tab) 1.5 mg PO HS@1900 [facility] Last Admin: 05/07/21 19:41 Dose: 1.5 mg Documented by: Sodium Chloride (Sodium Chloride 0.9% Flush 10 Ml Syringe) 10 ml IV Q4HR PRN PRN Reason: PICC Line Sodium Chloride (Sodium Chloride 0.9% Flush 10 Ml Syringe) 10 ml IV WEEKLY [facility] Sodium Chloride (Sodium Chloride 0.9% Flush 10 Ml Syringe) 20 ml IV Q4HR PRN PRN Reason: PICC Line Tamsulosin HCl (Tamsulosin 0.4 Mg Cap.Er.24h) 0.4 mg PO [facility] Last Admin: 05/07/21 19:42 Dose: 0.4 mg Documented by: Zolpidem Tartrate (Zolpidem 5 Mg Tab) 5 mg PO [facility] Last Admin: 05/07/21 19:42 Dose: 5 mg Documented by: On examination: VITAL SIGNS: 98.4, 94, 17, 140/76, 95% room air GENERAL APPEARANCE: Reclining in chair, awake, HEENT: Normal external appearance of nose and ear. NG tube to intermittent suction EYES: Pupils equal. Conjunctiva normal. NECK: JVD not raised. Mass not palpable. RESPIRATORY: Respiratory effort normal. Lungs clear to auscultation. CARDIOVASCULAR: First and second sounds normal. No edema. ABDOMEN: Less distended, mild right lower abdomen tenderness, present bowel sounds, Liver and spleen not palpable. PSYCHIATRY: Alert and oriented x3. Mood and affect normal. INVESTIGATIONS, reviewed in the clinical context: May 6: Sodium 136 potassium 4.5 creatinine 1.11 May 5: Sodium 136 creatinine 1.02 pro-calcitonin 0.13 May 4: Sodium 136 creatinine 0.9 May 3: Sodium 140 potassium 3.6 creatinine 0.98 May 04: Sodium 144 potassium 4 creatinine 1.02 white count 8.5 hemoglobin 12.4 May 03: Sodium 142 potassium 3.6 creatinine 1.0 albumin 2.6 May 02: Potassium 4.3 creatinine 1.13 Computed tomography scan of the abdomen and pelvis [April 24]: Right lower quadrant abscess/inflamed appendix associated with appendix May 01: White count 11.9 hemoglobin 12.8 potassium 4.4 creatinine 1.1 April 29: White count 9.3 hemoglobin 11.7 platelets 477. Pro-calcitonin 0.95 April 28: White count 9.9 hemoglobin 12 platelets 523. Abdominal x-ray shows diffusely dilated small bowel loops with air-fluid levels. Slight improvement. White count 13.5 hemoglobin 12.2 platelets 502 potassium 4.4 creatinine 1.2 CRP 29.8 procalcitonin 2.5 for Abdominal x-ray film personally reviewed by me dilated loops of bowel Computed tomography scan of the abdomen pelvis: Moderate inflammatory changes the right lower quadrant stopped and currently involving the distal ileum colon. Assessment and plan: -Acute appendicitis with phlegmon abscess: Slow to respond IV Zosyn, not for any surgical intervention per surgery at present. Soft bland diet -Acute small bowel obstruction: Clinically better NG tube discontinued . soft bland diet -Paroxysmal Atrial fibrillation, currently in sinus rhythm On telemetry -Hyperlipidemia Crestor 5 mg by mouth Sunday -Essential hypertension Lisinopril 10 mg a day -Osteoarthritis, primary -Restless leg syndrome Mirapex 1.5 mg by mouth daily at bedtime -BPH Flomax 0.4 mg daily at bedtime -TPN and lipids started April 01 Discontinued May 06 IV Zosyn. Soft bland diet. No BM for last 2 days. Activity as tolerated. Discussed with patient and .
[2021-05-08 19:26] VITALS: RESP 16
[2021-05-08] MEDS: PRAMIPEXOLE 1 MG TAB PO SCH (20:10)
[2021-05-08] MEDS: TAMSULOSIN 0.4 MG CAP.ER.24H PO SCH (20:11)
[2021-05-08] MEDS: ZOLPIDEM 5 MG TAB PO SCH (20:11)
[2021-05-08] MEDS ORDERED: ACETAMINOPHEN TAB 325 MG TAB PO PRN (20:42)
--- NOTE | 2021-05-08 23:52 | P.PN ---
Subjective Progress Note Date: 05/07/21 Principal diagnosis: Intra-abdominal abscess Patient is a 70-year-old male admitted to the hospital with right lower quadrant abdominal pain and vomiting in this patient repeat CT that shows evidence of right lower quadrant abscess and possible perforated appendicitis On today's evaluation that is 05/07/2021, the patient is afebrile, the patient abdominal pain has decreased in intensity and the patient denies any nausea or vomiting and diarrhea has decreased in frequency, patient denies chest pain shortness of breath or cough Objective - Vital Signs Vital signs: Vital Signs Temp 97.8 F 05/07/21 14:46 Pulse 68 05/07/21 14:46 Resp 18 05/07/21 14:46 BP 148/74 05/07/21 14:46 Pulse Ox 96 05/07/21 14:46 Intake & Output 05/06/21 05/07/21 05/07/21 18:59 06:59 18:59 Intake Total 2049.167 1180 Balance 2049.167 1180 Weight 97.522 kg Intake: Intake, IV Titration 9.167 580 Amount Piperacillin-Tazobactam 3 100 .375 gm In Sodium Chloride 0.9% 100 ml @ 25 mls/hr IVPB Q8H [facility] Rx#: [id number] Sodium Acetate 15 meq 480 Potassium Acetate 15 meq Magnesium Sulfate gm 0.5 gm Calcium Gluconate 1 gm In Amino Acids 5 %/ Dextrose 20 % 1,000 ml @ 85 mls/hr IV .BY DURATION [facility] Rx#:[id number] Sodium Acetate 20 meq 1040.5 Potassium Acetate 15 meq Calcium Gluconate 1 gm Mvi, Adult No.4 with Vit K 10 ml Trace (Conc-1Ml/ Dose) 1 ml Potassium Phosphate 6 mmol In Amino Acids 5 %/Dextrose 20 % 1,000 ml @ 85 mls/hr IV . BY DURATION [facility] Rx#: [id number] Sodium Acetate 20 meq 1008.667 Potassium Acetate 15 meq Magnesium Sulfate gm 0.5 gm Calcium Gluconate 1 gm Potassium Phosphate 6 mmol In Amino Acids 5 %/ Dextrose 20 % 1,000 ml @ 85 mls/hr IV .BY DURATION [facility] Rx#:[id number] Oral 600 Other: Voiding Method Toilet Toilet Urinal Urinal # Voids 5 1 - Exam GENERAL DESCRIPTION: An elderly male lying in bed in no distress RESPIRATORY SYSTEM: Unlabored breathing , decreased breath sounds at bases HEART: S1 S2 regular rate and rhythm , ABDOMEN: Soft , no tenderness EXTREMITIES: No edema feet - Labs CBC & Chem 7: 05/04/21 04:53 05/08/21 03:08 Labs: Abnormal Lab Results - Last 24 Hours (Table) 05/06/21 05/07/21 05/07/21 Range/Units 18:11 00:42 04:28 Sodium 136 L (137-145) mmol/L Glucose 105 H (74-99) mg/dL POC Glucose (mg/dL) 137 H 101 H (75-99) mg/dL Calcium 8.3 L (8.4-10.2) mg/dL Procalcitonin (0.02-0.09) ng/mL 05/07/21 05/07/21 Range/Units 04:29 06:20 Sodium (137-145) mmol/L Glucose (74-99) mg/dL POC Glucose (mg/dL) 113 H (75-99) mg/dL Calcium (8.4-10.2) mg/dL Procalcitonin 0.13 H (0.02-0.09) ng/mL Microbiology - Last 24 Hours (Table) 05/03/21 11:21 Blood Culture - Preliminary Blood No Growth after 96 hours Assessment and Plan (1) Acute appendicitis with appendiceal abscess Current Visit: Yes Status: Acute Code(s): K35.33 - ACUTE APPENDICITIS WITH PERF AND LOC PERITONITIS, WITH ABSCS SNOMED Code(s): 537372586 Plan: 1patient presented to hospital more than a week ago with a 1 week history of right lower quadrant abdominal pain and the patient has been worked up for possible ileitis by GI and surgical services and has been treated with IV Levaquin and Flagyl now with repeat CT did shows evidence of perforated appendicitis with a periappendicular abscess which cannot be drained CT-guided per interventional radiology, will need to cover for the enteric gram-negative both aerobes and anaerobes with the abscess forming while the patient was Levaquin and Flagyl 2patient is clinically responding to Zosyn 3.375 g every 8 hour, patient already has a PICC line and to continue with the current antibiotic at least 2 weeks Time with Patient: Less than 30
--- NOTE | 2021-05-08 23:53 | P.PN ---
Subjective Progress Note Date: 05/08/21 Principal diagnosis: Intra-abdominal abscess Patient is a 70-year-old male admitted to the hospital with right lower quadrant abdominal pain and vomiting in this patient repeat CT that shows evidence of right lower quadrant abscess and possible perforated appendicitis On today's evaluation that is 05/08/2021, the patient continues to be afebrile, the patient abdominal pain has decreased in intensity and the patient denies any nausea or vomiting , the patient diarrhea has decreased in frequency and slight deformity, the patient denies having any chest pain shortness of breath or cough Objective - Vital Signs Vital signs: Vital Signs Temp 98.4 F 05/08/21 13:53 Pulse 84 05/08/21 13:53 Resp 17 05/08/21 13:53 BP 148/76 05/08/21 13:53 Pulse Ox 95 05/08/21 13:53 Intake & Output 05/07/21 05/08/21 05/08/21 18:59 06:59 18:59 Other: Voiding Method Toilet Toilet Urinal Urinal # Voids 1 3 - Exam GENERAL DESCRIPTION: An elderly male lying in bed in no distress RESPIRATORY SYSTEM: Unlabored breathing , decreased breath sounds at bases HEART: S1 S2 regular rate and rhythm , ABDOMEN: Soft , no tenderness EXTREMITIES: No edema feet - Labs CBC & Chem 7: 05/04/21 04:53 05/08/21 03:08 Labs: Abnormal Lab Results - Last 24 Hours (Table) 05/08/21 Range/Units 03:08 Sodium 136 L (137-145) mmol/L Calcium 8.3 L (8.4-10.2) mg/dL Microbiology - Last 24 Hours (Table) 05/03/21 11:21 Blood Culture - Preliminary Blood No Growth after 120 hours Assessment and Plan (1) Acute appendicitis with appendiceal abscess Current Visit: Yes Status: Acute Code(s): K35.33 - ACUTE APPENDICITIS WITH PERF AND LOC PERITONITIS, WITH ABSCS SNOMED Code(s): 363706642 Plan: 1patient presented to hospital more than a week ago with a 1 week history of right lower quadrant abdominal pain and the patient has been worked up for possible ileitis by GI and surgical services and has been treated with IV Levaquin and Flagyl now with repeat CT did shows evidence of perforated appendicitis with a periappendicular abscess which cannot be drained CT-guided per interventional radiology, will need to cover for the enteric gram-negative both aerobes and anaerobes with the abscess forming while the patient was Levaquin and Flagyl 2patient is clinically responding to Zosyn 3.375 g every 8 hour, patient already has a PICC line and to continue with the Zosyn to finish a two-week course of therapy, may benefit from repeat CAT scan before DC to make sure no worsening of the abscess Time with Patient: Less than 30
[2021-05-09] MEDS: PIPERACILLIN-TAZOBACTAM 3.375 GM in SODIUM CHLORIDE 0.9% 100 ML IVPB SCH ×3 (02:36→18:13)
[2021-05-09 04:17] LABS: Basophils % (A) 0 %; Eosinophils # (A) 0.2 k/uL (0-0.7); Eosinophils % (A) 2 %; HCT 34.4 % (39.0-53.0); HGB 11.1 gm/dL (13.0-17.5); Lymphocytes # (A) 0.9 k/uL (1.0-4.8); Lymphocytes % (A) 10 %; MCH 31.2 pg (25.0-35.0); MCHC 32.2 g/dL (31.0-37.0); MCV 96.7 fL (80.0-100.0); Mean Platelet Volume 7.2; Monocytes # (A) 0.5 k/uL (0-1.0); Monocytes % (A) 6 %; Neutrophils # (A) 6.8 k/uL (1.3-7.7); Neutrophils % (A) 81 %; Platelet Count 463 k/uL (150-450); RBC 3.56 m/uL (4.30-5.90); RDW 13.5 % (11.5-15.5); WBC 8.5 k/uL (3.8-10.6)
[2021-05-09 04:28] LABS: African American GFR (CKD) 86 (>60 ml/min/1.73 sqM); Anion Gap 6 mmol/L; Blood Urea Nitrogen 12 mg/dL (9-20); Calcium 8.2 mg/dL (8.4-10.2); Carbon Dioxide 26 mmol/L (22-30); Chloride 106 mmol/L (98-107); Glucose 89 mg/dL (74-99); Magnesium 2.2 mg/dL (1.6-2.3); Non-African American GFR(CKD) 74 (>60 ml/min/1.73 sqM); Phosphorus 4.7 mg/dL (2.5-4.5); Potassium 4.3 mmol/L (3.5-5.1); Sodium 138 mmol/L (137-145)
[2021-05-09] MEDS ORDERED: PANTOPRAZOLE 40 MG TABLET PO SCH (08:15)
[2021-05-09] MEDS: lisinopriL 10 MG TAB PO SCH (08:22)
[2021-05-09] MEDS: METOPROLOL TARTRATE 25 MG TAB PO SCH (08:22)
--- NOTE | 2021-05-09 10:27 | P.PN ---
Subjective Progress Note Date: 05/09/21 CHIEF COMPLAINT: Abdominal pain HISTORY OF PRESENT ILLNESS: The patient is a 70 year old male admitted due to bowel obstruction including right lower quadrant abdominal pain and ileitis with ascending colitis. Now with repeat computed tomography scan showing evidence of appendicitis with phlegmon and small periappendiceal abscess. Patient has been tolerating low fiber diet. He denies any nausea or vomiting. He is passing gas and has had loose bowel movement, which is soft and no blood. Abdominal pain improved. He has been afebrile. TPN and lipids were discontinued over the weekend. manager inventory control is working on arranging outpatient IV antibiotics. PHYSICAL EXAM: VITAL SIGNS: Reviewed GENERAL: Well-developed in no acute distress. HEENT: No sclera icterus. Extraocular movements grossly intact. Moist buccal mucosa. Head is atraumatic, normocephalic. Hears conversational speech. No nasal drainage. NECK: Supple without lymphadenopathy. CHEST: Non-labored respirations and equal bilateral excursions. CARDIOVASCULAR: Palpable 2+ radial pulses. ABDOMEN: Soft, nondistended. Minimal tenderness in the right lower quadrant. Positive bowel sounds. MUSCULOSKELETAL: No clubbing or cyanosis. NEUROLOGIC: No focal or lateralizing signs. Cranial nerves II through XII grossly intact. PSYCH: Appropriate affect. Alert and oriented to person, place and time. SKIN: Well perfused. Good skin turgor. ASSESSMENT: 1. Appendicitis with phlegmon and small periappendiceal abscess 2. Abnormal computed tomography scan for inflammation ileitis, colitis 3. Abdominal pain 4. Inflammatory bowel disease, cannot be excluded 5. Bowel obstruction Noted On previous computed tomography scan now showed improvement PLAN: -Continue low fiber diet -Okay to discharge from surgical standpoint if tolerating diet and is medically cleared -No surgical intervention planned. -Discharge antibiotics per ID service -Encourage ambulation The impression and plan of care has been dictated as directed. I performed a history and examination of this patient, discussed the same with the dictator. I agree with the dictator's note ,documented as a scribe. Any additional findings or plans will be noted. Objective - Vital Signs Vital signs: Vital Signs Temp 98.9 F 05/09/21 07:21 Pulse 72 05/09/21 07:21 Resp 16 05/09/21 07:21 BP 115/68 05/09/21 07:21 Pulse Ox 93 L 05/09/21 07:21 Intake & Output 05/08/21 05/09/21 05/09/21 18:59 06:59 18:59 Intake Total 1000 Balance 1000 Intake: Oral 1000 Other: Voiding Method Toilet Urinal # Voids 5 - Labs CBC & Chem 7: 05/09/21 03:03 05/09/21 03:03 Labs: Abnormal Lab Results - Last 24 Hours (Table) 05/09/21 05/09/21 Range/Units 03:03 03:03 RBC 3.56 L (4.30-5.90) m/uL Hgb 11.1 L (13.0-17.5) gm/dL Hct 34.4 L (39.0-53.0) % Plt Count 463 H (150-450) k/uL Lymphocytes # 0.9 L (1.0-4.8) k/uL Calcium 8.2 L (8.4-10.2) mg/dL Phosphorus 4.7 H (2.5-4.5) mg/dL Microbiology - Last 24 Hours (Table) 05/03/21 11:21 Blood Culture - Preliminary Blood No Growth after 120 hours Assessment and Plan (1) Abdominal pain Current Visit: Yes Status: Acute Code(s): R10.9 - UNSPECIFIED ABDOMINAL PAIN SNOMED Code(s): 50530449 (2) Leukocytosis Current Visit: Yes Status: Acute Code(s): D72.829 - ELEVATED WHITE BLOOD CELL COUNT, UNSPECIFIED SNOMED Code(s): 451423807 (3) Small bowel obstruction Current Visit: Yes Status: Acute Code(s): K56.609 - UNSP INTESTNL OBST, UNSP TO PARTIAL VERSUS COMPLETE OBST SNOMED Code(s): 401832678
[2021-05-09 13:29] VITALS: BP 155/90; PULSE 87; TEMP 98.3
[2021-05-09] MEDS ORDERED: amLODIPine 2.5 MG TAB PO STA (14:17)
--- NOTE | 2021-05-09 18:16 | P.DS ---
Providers Date of admission: 04/26/21 11:34 Expected date of discharge: 05/09/21 Attending physician: Trent Marie Consults: 04/26/21 09:47 Consult Physician Routine Consulting Provider: Rose Loving Consult Reason/Comments: rlq pain with leukocytosis Do you want consulting provider notified?: Already Contacted 05/03/21 09:36 Consult Physician Routine Consulting Provider: Peter Vegas Consult Reason/Comments: Appendicitis with abscess Do you want consulting provider notified?: Yes Primary care physician: [place] Hospital Course: Hospital course: Patient admitted with abdominal pain. Found to mechanical small bowel obstruction. NG tube was placed Pepe the patient pointed out in the middle of the night. Subsequent computed tomography scan showed phlegmon in the right appendix. Initially had been felt to be terminal ileitis. Patient seen by GI Dr. Kaylin Mg and surgery Dr. Pinedo. Patient had been made a nothing by mouth. NG tube was continued. IV antibiotics. Repeat computed tomography scan showed the same. Patient started on TPN and lipids. Interventional radiology was consulted they felt that phlegmon was too small to access. Present time plan is to continue with IV antibiotics. Patient has been tolerating a diet. Having bowel movements. Pain is controlled. May 09: Tolerating diet. No nausea vomiting. Had a bowel movement today. Cleared by surgery and ID. Home IV antibiotics have been arranged. Diet discussed with the patient. Patient will follow-up with surgery and ID. 2 weeks of IV Zosyn. Patient has a PICC line Discussion and discharge planning more than 35 minutes On examination: VITAL SIGNS: 97, 16, 155/90, 96% room air GENERAL APPEARANCE: Reclining in chair, awake, HEENT: Normal external appearance of nose and ear. NG tube to intermittent suction EYES: Pupils equal. Conjunctiva normal. NECK: JVD not raised. Mass not palpable. RESPIRATORY: Respiratory effort normal. Lungs clear to auscultation. CARDIOVASCULAR: First and second sounds normal. No edema. ABDOMEN: Less distended, no tenderness, present bowel sounds, Liver and spleen not palpable. PSYCHIATRY: Alert and oriented x3. Mood and affect normal. INVESTIGATIONS, reviewed in the clinical context: May 09: Sodium 138 potassium 4.3 creatinine 1.01 white count 8.5 hemoglobin 11.1 platelets 463 Computed tomography scan of the abdomen and pelvis [April 24]: Right lower quadrant abscess/inflamed appendix associated with appendix April 28: White count 9.9 hemoglobin 12 platelets 523. Abdominal x-ray shows diffusely dilated small bowel loops with air-fluid levels. Slight improvement. White count 13.5 hemoglobin 12.2 platelets 502 potassium 4.4 creatinine 1.2 CRP 29.8 procalcitonin 2.5 for Abdominal x-ray film personally reviewed by me dilated loops of bowel Computed tomography scan of the abdomen pelvis: Moderate inflammatory changes the right lower quadrant stopped and currently involving the distal ileum colon. Assessment and plan: -Acute appendicitis with phlegmon abscess: IV Zosyn, for 2 more weeks. Soft bland diet -Acute small bowel obstruction: Clinically better NG tube discontinued . soft bland diet -Paroxysmal Atrial fibrillation, currently in sinus rhythm On telemetry -Hyperlipidemia Crestor 5 mg by mouth Sunday -Essential hypertension Lisinopril 10 mg a day -Osteoarthritis, primary -Restless leg syndrome Mirapex 1.5 mg by mouth daily at bedtime -BPH Flomax 0.4 mg daily at bedtime -TPN and lipids started April 01 Discontinued May 06 Disposition: Home Plan - Discharge Summary Discharge Rx Participant: No New Discharge Prescriptions: New Famotidine [Pepcid] 20 mg PO BID #60 tablet Benzocaine/Menthol Lozeng [Cepacol lozenge] 1 each MUCOUS MEM Q4HR PRN lozenge PRN Reason: Cough Continue Aspirin 81 mg PO DAILY Metoprolol Tartrate 25 mg PO BID Pramipexole [Mirapex] 1.5 mg PO HS@1900 Multivitamins, Thera [Multivitamin (formulary)] 1 tab PO DAILY Methylphenidate HCl [Methylphenidate HCl ER] 36 mg PO DAILY Lisinopril [Zestril] 10 mg PO DAILY Rosuvastatin Calcium [Crestor] 5 mg PO MOWEFR Alfuzosin HCl [Alfuzosin HCl ER] 10 mg PO HS Albuterol Inhaler [Ventolin Hfa Inhaler] 2 puff INHALATION RT-Q4H PRN PRN Reason: Shortness Of Breath Discharge Medication List Aspirin 81 mg PO DAILY 02/10/14 [History] Metoprolol Tartrate 25 mg PO BID 02/10/14 [History] Albuterol Inhaler [Ventolin Hfa Inhaler] 2 puff INHALATION RT-Q4H PRN 04/25/21 [History] Alfuzosin HCl [Alfuzosin HCl ER] 10 mg PO HS 04/25/21 [History] Lisinopril [Zestril] 10 mg PO DAILY 04/25/21 [History] Methylphenidate HCl [Methylphenidate HCl ER] 36 mg PO DAILY 04/25/21 [History] Multivitamins, Thera [Multivitamin (formulary)] 1 tab PO DAILY 04/25/21 [History] Pramipexole [Mirapex] 1.5 mg PO HS@1900 04/25/21 [History] Rosuvastatin Calcium [Crestor] 5 mg PO MOWEFR 04/25/21 [History] Benzocaine/Menthol Lozeng [Cepacol lozenge] 1 each MUCOUS MEM Q4HR PRN lozenge 05/09/21 [Rx] Famotidine [Pepcid] 20 mg PO BID #60 tablet 05/09/21 [Rx] Follow up Appointment(s)/Referral(s): Orestes Nichols DO [Primary Care Provider] - 05/19/21 8:40 am Rose Loving MD [STAFF PHYSICIAN] - 05/24/21 4:00 pm [facility], [NON-STAFF] - As Needed ([facility] will contact you to schedule your nursing visits for iv antibiotics teaching. Your first visit will be on 05/10/21.) [facility],Infusion [NON-STAFF] - ([facility] will deliver supplies to your house for the antibiotic infusions either tonight or first thing tomorrow. They will call prior to delivery. ) Peter Vegas MD [STAFF PHYSICIAN] - 05/23/21 2:00 pm Activity/Diet/Wound Care/Special Instructions: Antibiotics per Dr. Barillas ID
[2021-05-09] MEDS: PRAMIPEXOLE 1 MG TAB PO SCH (19:29)
== END 2021-05-09 19:30 | disposition home health service (06) | DRG 388 ==
LOC: EC 13:34 → 6NMEDSUR 18:24 → OBSVTOIN 04-26 11:34 → 4SSUR 04-26 13:41
PROVIDERS: ADMIT Hospitalist; ATTEND Hospitalist
PROC: 0D9670Z Drainage of Stomach with Drainage Device, Via Natural or Artificial Opening (ICD-10-PCS; 2021-04-28)
PROC: 3E0436Z Introduction of Nutritional Substance into Central Vein, Percutaneous Approach (ICD-10-PCS; 2021-05-02)
PROC: 02HV33Z Insertion of Infusion Device into Superior Vena Cava, Percutaneous Approach (ICD-10-PCS; principal; 2021-05-02 10:35)
DX: K56.699 Other intestinal obstruction unspecified as to partial versus complete obstruction (principal); K35.33 Acute appendicitis with perforation, localized peritonitis, and gangrene, with abscess; E78.5 Hyperlipidemia, unspecified; G25.81 Restless legs syndrome; I10 Essential (primary) hypertension; I48.0 Paroxysmal atrial fibrillation; Z86.16 Personal history of COVID-19; Z86.010 Personal history of colon polyps; M19.90 Unspecified osteoarthritis, unspecified site; Z20.822 Contact with and (suspected) exposure to COVID-19; N40.0 Benign prostatic hyperplasia without lower urinary tract symptoms; Z79.82 Long term (current) use of aspirin; Z79.899 Other long term (current) drug therapy; Z85.828 Personal history of other malignant neoplasm of skin; K52.9 Noninfective gastroenteritis and colitis, unspecified; D72.829 Elevated white blood cell count, unspecified
CPT/HCPCS: 36415; 36573; 71045; 74019; 74177; 80048; 80053; 81003; 82040; 82150; 82330; 83036; 83605; 83690; 83735; 84100; 84145; 84478; 85025; 85610; 85652; 86140; 87040; 87635; 96361; 96365; 96375; 99285

== ENCOUNTER 2021-06-13 08:20 | Day surgery (SDC) | payer BC, MEDICARE ==
[2021-06-10 09:22] VITALS: BMI 31.7
[~2021-06-13 08:20] MED LIST: DEXAMETHASONE SOD PHOSPHATE 4 MG/ML 1 ML VIAL IV ONE; HEPARIN SODIUM,PORCINE/PF 5,000 UNIT/0.5 ML SYRINGE SQ PRN; HYDROmorphone 0.5 MG/0.5 ML SYRINGE IVP PRN; LACTATED RINGERS 1,000 ML IV SCH; MIDAZOLAM 2 MG/2 ML VIAL IV PRN; ONDANSETRON 4 MG/2 ML VIAL IVP ONE; metroNIDAZOLE-NS PMX 500 MG in SALINE 1 100ML.BAG IVPB PRN
--- NOTE | 2021-06-13 08:36 | P.GSHP ---
History of Present Illness H&P Date: 06/13/21 CHIEF COMPLAINT: Ruptured appendicitis HISTORY OF PRESENT ILLNESS: The patient is a 70-year-old male who had prior ruptured appendicitis over 4 to 6 weeks ago. Patient was treated with IV antibiotics and presents today for interval appendectomy. PAST MEDICAL HISTORY: See list and reviewed PAST SURGICAL HISTORY: See list and reviewed CURRENT MEDICATIONS: See list and reviewed ALLERGIES: See list and reviewed SOCIAL HISTORY: See list and reviewed FAMILY HISTORY: See list and reviewed REVIEW OF ORGAN SYSTEMS: CONSTITUTIONAL: Present fever, no chills. Denies recent weight loss. HEENT: Denies any trouble with vision, hearing or nosebleeds. No difficulty swallowing. LYMPHATIC: The patient denies any lumps and bumps around the neck. ENDOCRINE: Denies any thyroid disorders. Denies any blood sugar glucose intolerance. RESPIRATORY: Denies shortness of breath including chronic cough. CARDIOVASCULAR: Denies history of chest pain with exertion. History of atrial fibrillation GASTROINTESTINAL: Denies regurgitation of bile at night as well as intermittent nausea. No blood in stools. GENITOURINARY: Denies any blood in urine. Has obstructive uropathy MUSCULOSKELETAL: Denies current joint arthritis. NEUROLOGIC: Denies any numbness or tingling along the distal extremities. No seizure disorders or headaches. PSYCHIATRIC: Denies any depression or suicidal ideation. HEMATOLOGIC: Denies any abnormal bleeding or bruising. PHYSICAL EXAMINATION: GENERAL: Well-developed male in no acute distress HEENT: No sclera icterus. Extraocular movements grossly intact. Moist buccal mucosa. Head is atraumatic, normocephalic. Hears conversational speech. No nasal drainage. NECK: Supple without lymphadenopathy. No JV distention. CHEST: Non-labored respirations and equal bilateral excursions. CARDIOVASCULAR: Palpable 2+ radial pulses. ABDOMEN: Soft, nontender abdomen. MUSCULOSKELETAL: No clubbing, cyanosis or edema. NEUROLOGIC: No focal or lateralizing signs. PSYCH: Appropriate affect. Alert and oriented to person, place and time. SKIN: Well perfused. Good skin turgor. LABS: Reviewed. White blood cell count normal at 05/18/2021 STUDIES: CT of the abdomen and pelvis reviewed from outside facility on 05/18/2021 demonstrates appendicitis with fluid collection ASSESSMENT: 1. Ruptured appendicitis 2. Atrial fibrillation PLAN: 1. I have discussed benefits and risks of robotic appendectomy. 2. Bilateral SCDs. 3. Patient is elevated risk due to pre-existing sepsis, atrial fibrillation Past Medical History Past Medical History: Atrial Fibrillation, Cancer, GERD/Reflux, Hyperlipidemia, Hypertension, Osteoarthritis (OA), Syncope Additional Past Medical History / Comment(s): skin cancer, episode of A-Fib several years ago-no further problems, sinus issues, episode of syncope after getting up too fast, recent adm. for small bowel obstruction & appendix abscess, had IV A/B & now on oral History of Any Multi-Drug Resistant Organisms: None Reported Past Surgical History: Orthopedic Surgery Additional Past Surgical History / Comment(s): vasectomy, removal of skin cancer from face,right rotator cuff repair dec, PICC line & then removal Past Anesthesia/Blood Transfusion Reactions: No Reported Reaction Smoking Status: Never smoker - Past Family History Father Family Medical History: Cancer Mother Family Medical History: Cancer Medications and Allergies Home Medications Medication Instructions Recorded Confirmed Type Aspirin 81 mg PO DAILY 02/10/14 06/10/21 History Metoprolol Tartrate 25 mg PO BID 02/10/14 06/10/21 History Lisinopril [Zestril] 10 mg PO DAILY 04/25/21 06/10/21 History Methylphenidate HCl 36 mg PO DAILY 04/25/21 06/10/21 History [Methylphenidate HCl ER] Pramipexole [Mirapex] 1.5 mg PO HS@1900 04/25/21 06/10/21 History Rosuvastatin Calcium [Crestor] 5 mg PO MOWEFR 04/25/21 06/10/21 History Famotidine [Pepcid] 20 mg PO BID #60 tablet 05/09/21 06/10/21 Rx Amoxicillin/Potassium Clav 1 tab PO Q12HR 06/10/21 06/10/21 History [Augmentin 875-125 Tablet] Tamsulosin [Flomax] 0.4 - 0.8 mg PO HS 06/10/21 06/10/21 History Allergies Allergy/AdvReac Type Severity Reaction Status Date / Time No Known Allergies Allergy Verified 06/10/21 09:19
[2021-06-13] MEDS ORDERED: GABAPENTIN 300 MG CAP PO PRN (08:46)
[2021-06-13] MEDS ORDERED: MELOXICAM 7.5 MG TAB PO PRN (08:46)
[2021-06-13] MEDS ORDERED: TAMSULOSIN 0.4 MG CAP.ER.24H PO PRN (08:46)
[2021-06-13] MEDS ORDERED: ACETAMINOPHEN TAB 500 MG TAB PO PRN (08:46)
[2021-06-13 08:48] VITALS: RESP 16
[2021-06-13] MEDS ORDERED: LIDOCAINE 1% (10MG/ML) FOR IV START INTRADERMA ONE (08:57)
[2021-06-13 08:59] LABS: Glucose,Whole Blood 92 mg/dL (75-99)
[2021-06-13] MEDS ORDERED: LIDOCAINE 1% INJ 10MG/ML (20 ML MDV) ONE (09:30)
[2021-06-13] MEDS ORDERED: GLYCOPYRROLATE 0.2 MG/ML 2 ML VIAL ONE (09:30)
[2021-06-13] MEDS ORDERED: NEOSTIGMINE 1 MG/ML 10 ML VIAL ONE (09:30)
[2021-06-13] MEDS ORDERED: PROPOFOL 10 MG/ML 20 ML VIAL IV ONE (09:30)
[2021-06-13] MEDS ORDERED: MIDAZOLAM 2 MG/2 ML VIAL ONE (09:30)
[2021-06-13] MEDS ORDERED: ROCURONIUM 10 MG/ML (5 ML VIAL) IV ONE (09:30)
[2021-06-13] MEDS ORDERED: SUCCINYLCHOLINE CHLORIDE 100 MG/5 ML SYR IV ONE (09:30)
[2021-06-13] MEDS ORDERED: ePHEDrine 50 MG/ML 1 ML VIAL ONE (09:30)
[2021-06-13] MEDS ORDERED: fentaNYL (PF) 50 MCG/ML 2 ML AMP ONE (09:30)
[2021-06-13] MEDS ORDERED: PHENYLEPHRINE-0.9% NACL SYG 1,000 MCG/10 ML SYRINGE ONE (09:30)
[2021-06-13 09:31] LABS: Basophils % (A) 1 %; Eosinophils # (A) 0.2 k/uL (0-0.7); Eosinophils % (A) 4 %; HCT 42.5 % (39.0-53.0); Lymphocytes % (A) 24 %; MCH 31.8 pg (25.0-35.0); MCHC 33.9 g/dL (31.0-37.0); MCV 93.8 fL (80.0-100.0); Mean Platelet Volume 7.1; Monocytes # (A) 0.2 k/uL (0-1.0); Monocytes % (A) 6 %; Neutrophils # (A) 2.8 k/uL (1.3-7.7); Neutrophils % (A) 63 %; Platelet Count 313 k/uL (150-450); RBC 4.54 m/uL (4.30-5.90); RDW 14.9 % (11.5-15.5); WBC 4.4 k/uL (3.8-10.6)
[2021-06-13 09:37] LABS: HGB 14.4 gm/dL (13.0-17.5)
[2021-06-13 09:58] LABS: Albumin 4.1 g/dL (3.5-5.0); Calcium 9.4 mg/dL (8.4-10.2); Potassium 4.3 mmol/L (3.5-5.1)
[2021-06-13] MEDS ORDERED: BUPIVACAIN-EPI 0.25%-1:200,000 30 ML VIAL SQ ONE (10:03)
[2021-06-13] MEDS ORDERED: LACTATED RINGERS 1,000 ML IV ONE (10:35)
[2021-06-13 11:08] VITALS: TEMP 97
--- NOTE | 2021-06-13 11:25 | P.OP ---
Date of Procedure: 06/13/21 Description of Procedure: SURGEON: ROSE LOVING MD Preoperative Diagnosis: 1. Ruptured appendicitis with peritonitis 2. Past history of sepsis due to ruptured appendicitis 3. Atrial fibrillation 4. Hypertensive heart disease 5. Obstructive uropathy due to prostate disorder 6. Obesity due to excess calories, BMI 32.0 7. Hyperlipidemia 8. Gastroesophageal reflux disease 9. ADD with ADHD Postoperative Diagnosis: 1. Ruptured appendicitis with peritonitis, phlegmon with severe intra-abdominal adhesions 2. Past history of sepsis due to ruptured appendicitis 3. Atrial fibrillation 4. Hypertensive heart disease 5. Obstructive uropathy due to prostate disorder 6. Obesity due to excess calories, BMI 32.0 7. Hyperlipidemia 8. Gastroesophageal reflux disease 9. ADD with ADHD 1 Procedure(s) Performed: 1. Robotic-assisted daVinci Xi laparoscopic lysis of adhesions over 30 minutes 2. Robotic-assisted daVinci Xi laparoscopic appendectomy Anesthesia: GETA, local Estimated Blood Loss (ml): 5 Pathology: other (appendix) Condition: stable Disposition: floor Operative Findings: 1. Severe diffuse intra-abdominal adhesions due to prior ruptured appendicitis peritonitis 2. Decreased phlegmon right lower quadrant for ruptured appendicitis 3. Over 70% of procedure due to lysis of adhesions INDICATIONS: The patient is a 70-year-old male who presents with phlegmon due to ruptured appendicitis and sepsis 4-6 weeks ago. He presents for interval appendectomy after prolonged antibiotics. Benefits and risks, including infection, open surgery, and bleeding for additional surgery was discussed at length. Informed consent was obtained. All questions of the patient and family were answered. DESCRIPTION: The patient was transferred to the operating room and placed in supine position. The patient had previously voided. The abdomen was then prepped and draped in standard sterile fashion as Ioban was placed along the abdomen to minimize any contamination of skin floor. After a timeout protocol was performed, attention was then brought to the left upper quadrant whereby a 0 degree 5 mm laparoscopic trocar entry was performed. The abdominal cavity was entered and insufflated to 12 mmHg pressure, which was tolerated well. Diagnostic laparoscopy demonstrated no injury to bowel, viscera or mesentery. Next a robotic 8-mm trocar was placed along the left lower quadrant, 10-cm lateral to the midline. A 12 mm port was placed along the left upper quadrant and another 8-mm port left lateral abdominal wall. Ports were placed 8 cm apart from each other including 15-20 cm away from the target anatomy of the right pelvis. The patient was then placed in Trendelenburg position, at least 7 down and right side up at least 7. The robotic da Tal XI system was primed and docked from the left side of the patient. Using atraumatic graspers and vessel sealer, the robotic system was docked and primed as described. Instruments were interchanged by the under water assistant including graspers, robotic stapler and vessel sealer. Moderate intra-abdominal adhesions were identified involving small bowel to the abdominal wall all lysed sharply using vessel sealer for over 30 minutes. The appendix was adherent to the right pelvic wall and freed from surrounding adhesions and tissue also contributing to extensive lysis of adhesions. Over 70% of the case was dedicated to lysis of adhesions. The appendix was adherent to the right pelvis with additional dissection re quired. The meso-appendix was adherent to the surrounding tissue and divided using vessel sealer. No additional abscess was identified. The appendix was dissected free from its surrounding tissues. Blue 30 mm robotic staple loads 2 were fired along the base of the appendix. The staple line was hemostatic. Hemostasis was checked prior to undocking the robot. The robot was undocked. I re-scrubbed into the case. The specimen was removed from the abdominal cavity with an Endo Catch bag through the 12 mm trocar at the left upper quadrant. All instruments and pneumoperitoneum were evacuated from the abdominal cavity. Local anesthetic was infiltrated to all wounds for postop analgesia. All incisions were also cleansed with diluted hydrogen peroxide. The incisions were closed with 4-0 Monocryl. Exofin glue was applied to the rest of the skin incisions. The patient had tolerated the procedure well. The patient was extubated successfully. The patient was transferred to the postanesthesia care unit in stable condition. Plan - Discharge Summary Discharge Rx Participant: No New Discharge Prescriptions: New Simethicone [Gas-X] 125 mg PO AC-TID PRN #20 capsule PRN Reason: Pain Ibuprofen [Motrin] 600 mg PO Q8HR PRN #30 tab PRN Reason: Pain Acetaminophen Tab [Tylenol Tab] 1,000 mg PO Q6HR PRN #30 tablet PRN Reason: Pain Continue Aspirin 81 mg PO DAILY Metoprolol Tartrate 25 mg PO BID Pramipexole [Mirapex] 1.5 mg PO HS@1900 Methylphenidate HCl [Methylphenidate HCl ER] 36 mg PO DAILY Lisinopril [Zestril] 10 mg PO DAILY Famotidine [Pepcid] 20 mg PO BID #60 tablet Rosuvastatin Calcium [Crestor] 5 mg PO MOWEFR Amoxicillin/Potassium Clav [Augmentin 875-125 Tablet] 1 tab PO Q12HR Tamsulosin [Flomax] 0.4 - 0.8 mg PO HS Discharge Medication List Aspirin 81 mg PO DAILY 02/10/14 [History] Metoprolol Tartrate 25 mg PO BID 02/10/14 [History] Lisinopril [Zestril] 10 mg PO DAILY 04/25/21 [History] Methylphenidate HCl [Methylphenidate HCl ER] 36 mg PO DAILY 04/25/21 [History] Pramipexole [Mirapex] 1.5 mg PO HS@1900 04/25/21 [History] Rosuvastatin Calcium [Crestor] 5 mg PO MOWEFR 04/25/21 [History] Famotidine [Pepcid] 20 mg PO BID #60 tablet 05/09/21 [Rx] Amoxicillin/Potassium Clav [Augmentin 875-125 Tablet] 1 tab PO Q12HR 06/10/21 [History] Tamsulosin [Flomax] 0.4 - 0.8 mg PO HS 06/10/21 [History] Acetaminophen Tab [Tylenol Tab] 1,000 mg PO Q6HR PRN #30 tablet 06/13/21 [Rx] Ibuprofen [Motrin] 600 mg PO Q8HR PRN #30 tab 06/13/21 [Rx] Simethicone [Gas-X] 125 mg PO AC-TID PRN #20 capsule 06/13/21 [Rx] Follow up Appointment(s)/Referral(s): Rose Loving MD [STAFF PHYSICIAN] - 06/14/21 (Telehealth) Patient Instructions/Handouts: Laparoscopic Appendectomy (DC) Activity/Diet/Wound Care/Special Instructions: No lifting over 10 pounds in 2 weeks until June 27. May shower. No bath tub soaks for two weeks until June 27. Diet as tolerated. Use Tylenol, simethicone and ibuprofen or Aleve scheduled for the next 24-48 hours for best pain relief. Use ice along incisions for today to prevent swelling. Discharge Disposition: HOME SELF-CARE
[2021-06-13 12:56] VITALS: BP 112/68; PULSE 74
== END 2021-06-13 13:10 | disposition home or self-care (01) ==
LOC: OR 08:20
PROVIDERS: ATTEND Surgery Plastic and Reconstructive Surgery
DX: K35.32 Acute appendicitis with perforation, localized peritonitis, and gangrene, without abscess (principal); I48.91 Unspecified atrial fibrillation; K21.9 Gastro-esophageal reflux disease without esophagitis; E78.5 Hyperlipidemia, unspecified; I10 Essential (primary) hypertension; M19.90 Unspecified osteoarthritis, unspecified site; Z79.82 Long term (current) use of aspirin; Z79.899 Other long term (current) drug therapy; I49.9 Cardiac arrhythmia, unspecified; Z80.9 Family history of malignant neoplasm, unspecified
CPT/HCPCS: 44970; S2900; 80053; 85025; 88304

== ENCOUNTER → 2022-03-08 | Outpatient (CLI) | payer BC, MEDICARE ==
--- NOTE | 2022-03-08 14:50 | P.SLEEP ---
History of Present Illness DATE: 2022 CONSULTATION/NEW PATIENT EVALUATION HISTORY OF PRESENT ILLNESS/SLEEP-WAKE EVALUATION: 71 year old gentleman had been evaluated in the sleep center for possible obstructive sleep apnea hypopnea syndrome and for excessive daytime sleepiness. Patient has sleep study more than 10 years ago in another institution and at that time was found to have periodic limb movements. Since that time she increases weight on around 25 pounds. SLEEP SCHEDULE: Usually sleep schedule from 9:30 PM until 7 AM. FALLING ASLEEP: Usually no problems with falling asleep, no TV in bedroom. DURING SLEEP: Patient has loud snoring. Patient wakes up from sleep up to 6 times now with nocturia. Positive history of periodic limb movements and restless leg symptoms. No history of hypnogogical hallucinations, sleep paralysis, or cataplexy. DURING THE DAY/WAKE STATE: Patient feels sleepiness during the day. Nordheim sleepiness scale is increased to 10, while patient is on treatment with methylphenidate. Without medication she is falling asleep. PAST MEDICAL HISTORY: Hypertension, acid reflux, ADHD, prostate CA. PAST SURGICAL HISTORY: Appendectomy, surgery for BPH with pathology showed cancer cells. MEDICATIONS: Pramipexole, methylphenidate 36 mg once a day, famotidine 20 mg once a day, lisinopril 10 mg once a day, metoprolol 25 mg once a day. SOCIAL HISTORY: Negative for smoking, alcohol consumption occasional. FAMILY HISTORY: Heart problems, cancer. REVIEW OF SYSTEMS: Snoring, multiple awakenings from sleep, sleepiness during the day. No fevers. No double vision. No recent chest pain. No shortness of breath. No abdominal pain. No bleeding episodes. No blood in urine. No seizure episodes. PHYSICAL EXAMINATION: GENERAL: A pleasant patient without any distress. VITAL SIGNS: BP 137/93, HR 81, RR 15, weight 226.0 pounds, height 5 foot 9 inches, body mass index 33.3. HEENT: PERRLA, EOMI. Evaluation of oropharynx showed tongue protrudes midline, low position of soft palate Mallampati 4. NECK: Supple. No JVD. Thyroid is not palpable. 18-1/4 inches in circumference. LUNGS: Clear to percussion and to auscultation. Good air exchange. No wheezing or rhonchi. HEART: S1, S2 regular. No murmurs, gallops or rubs. ABDOMEN: Soft and nontender. Bowel sounds are present. No organomegaly appreciated. Obese EXTREMITIES: No clubbing or cyanosis. EXCHANGE CONSULTANT: Awake, alert, and oriented x3. Cranial nerves 2 to 7 intact. There is no fasciculation or atrophy noted. No focal deficits observed. ASSESSMENT: 1. Loud snoring, multiple awakenings from sleep, extremely low position of soft palate Mallampati 4, wide neck 18-1/4 inches in circumference, sleepiness. Obstructive sleep apnea hypopnea syndrome. 2. Obesity body mass index 33.3. 3. Hypertension. 4. Periodic limb movements. 5 of restless leg symptoms. 6 . Acid reflux. 7. History of ADHD. 8. Prostate cancer found by results of pathology for surgical treatment of BPH. 9 . Status post appendectomy. PLAN: 1. Polysomnography for evaluation of patient's breathing during sleep. 2. CPAP/BiPAP titration if sleep study confirms obstructive sleep apnea- hypopnea syndrome. 3. Preferable position during sleep on the side. 4. No driving if patient feels any sleepiness. Patient is aware of civil and criminal liability for unsafe driving. 5. Sleep hygiene with regular sleep time for at least 7.5-8 hours. 6. Watching and losing weight. 7. Patient will need multiple sleep latency test which should be done without methylphenidate, if polysomnogram will be negative for obstructive sleep apnea hypopnea syndrome. Thank you very much for referring this patient for consultation. Sincerely, Jimmy Monroe MD, PhD, FAASM. Diplomat of [place] [employer], Sleep Medicine Board by [place] [employer] [place] [employer] [facility] [place] Past Medical History Past Medical History: Atrial Fibrillation, Cancer, GERD/Reflux, Hyperlipidemia, Hypertension, Osteoarthritis (OA), Syncope Additional Past Medical History / Comment(s): skin cancer, episode of A-Fib several years ago-no further problems, sinus issues, episode of syncope after getting up too fast, recent adm. for small bowel obstruction & appendix abscess, had IV A/B & now on oral History of Any Multi-Drug Resistant Organisms: None Reported Past Surgical History: Orthopedic Surgery Additional Past Surgical History / Comment(s): vasectomy, removal of skin cancer from face,right rotator cuff repair dec, PICC line & then removal Past Anesthesia/Blood Transfusion Reactions: No Reported Reaction Smoking Status: Never smoker - Past Family History Father Family Medical History: Cancer Mother Family Medical History: Cancer Medications and Allergies Home Medications Medication Instructions Recorded Confirmed Type Aspirin 81 mg PO DAILY 02/10/14 06/13/21 History Metoprolol Tartrate 25 mg PO BID 02/10/14 06/13/21 History Methylphenidate HCl 36 mg PO DAILY 04/25/21 06/13/21 History [Methylphenidate HCl ER] Pramipexole [Mirapex] 1.5 mg PO HS@1900 04/25/21 06/13/21 History Rosuvastatin Calcium [Crestor] 5 mg PO MOWEFR 04/25/21 06/13/21 History lisinopriL [Zestril] 10 mg PO DAILY 04/25/21 06/13/21 History Famotidine [Pepcid] 20 mg PO BID #60 tablet 05/09/21 06/13/21 Rx Amoxicillin/Potassium Clav 1 tab PO Q12HR 06/10/21 06/13/21 History [Augmentin 875-125 Tablet] Tamsulosin [Flomax] 0.4 - 0.8 mg PO HS 06/10/21 06/13/21 History Acetaminophen Tab [Tylenol Tab] 1,000 mg PO Q6HR PRN #30 tablet 06/13/21 Rx Ibuprofen [Motrin] 600 mg PO Q8HR PRN #30 tab 06/13/21 Rx Simethicone [Gas-X] 125 mg PO AC-TID PRN #20 capsule 06/13/21 Rx Allergies Allergy/AdvReac Type Severity Reaction Status Date / Time No Known Allergies Allergy Verified 06/13/21 08:36 Sleep Note - Sleep Note Sleep Note: Temperature: Pulse Rate: Respiratory Rate: Blood Pressure: SpO2: Height: Weight: BMI: Neck Circumference:
== END ==
LOC: SLEEP 14:00
PROVIDERS: ATTEND Internal Medicine
DX: G47.33 Obstructive sleep apnea (adult) (pediatric) (principal); E66.9 Obesity, unspecified; Z99.89 Dependence on other enabling machines and devices; I10 Essential (primary) hypertension; Z68.33 Body mass index [BMI] 33.0-33.9, adult; K21.9 Gastro-esophageal reflux disease without esophagitis; F90.9 Attention-deficit hyperactivity disorder, unspecified type; G47.61 Periodic limb movement disorder; G25.81 Restless legs syndrome; Z85.46 Personal history of malignant neoplasm of prostate; Z90.89 Acquired absence of other organs; I48.91 Unspecified atrial fibrillation; M19.90 Unspecified osteoarthritis, unspecified site; E78.5 Hyperlipidemia, unspecified
CPT/HCPCS: 99211

== ENCOUNTER → 2022-08-29 | Outpatient (CLI) | payer MEDICARE ==
--- NOTE | 2022-08-29 14:58 | CT ---
EXAMINATION TYPE: CT brain wo con CT DLP: 1137.6 mGycm, Automated exposure control for dose reduction was used. DATE OF EXAM: 08/29/2022 2:48 PM COMPARISON: 05/22/2011 CLINICAL INDICATION:Male, 71 years old with history of R26.89, abnormality of gait and mobility TECHNIQUE: Brain: Axial CT images of the brain were obtained with coronal and sagittal reformats created and rev iewed. Contrast used: None. Oral contrast used: None. FINDINGS: Brain: Extra-axial spaces: No abnormal extra-axial fluid collections. Ventricular system: The ventricular system is dilated which has increased slightly from 2012 includin g the lateral ventricles and the third ventricle. Cerebral parenchyma: Cerebral atrophy. No acute intraparenchymal hemorrhage or mass effect. The carcamo -white junction is well differentiated. Scattered hypoattenuating areas are seen within the white mat ter. Cerebellum: Unremarkable. Mass effect: No evidence of midline shift. Intracranial vasculature: Atherosclerotic calcifications of the intracranial vessels. Soft tissues: Normal. Calvarium/osseous structures: No depressed skull fracture. Paranasal sinuses and mastoid air cells: Mild scattered paranasal sinus disease. Visualized orbits: Bilateral aphakia IMPRESSION: 1. Increase in dilation of the ventricular system, correlate for hydrocephalus. Further evaluation w ith MRI to look for transependymal flow is recommended. 2. Nonspecific white matter likely secondary to small vessel ischemic disease.
== END | disposition home or self-care (01) ==
LOC: RADCTMAIN 14:32
PROVIDERS: ATTEND Family Medicine
DX: R90.82 White matter disease, unspecified (principal); R26.89 Other abnormalities of gait and mobility
CPT/HCPCS: 70450

== ENCOUNTER → 2022-09-13 | Outpatient (CLI) | payer MEDICARE ==
--- NOTE | 2022-09-13 19:57 | MR ---
EXAMINATION TYPE: MR brain wo/w con DATE OF EXAM: 09/13/2022 7:23 PM CLINICAL INDICATION:Male, 71 years old with history of G91.9; Hydrocephalus found on CT COMPARISON: CT brain 08/29/2022. TECHNIQUE: Multi planar, multi sequence imaging was performed through the brain including: T1, T2, In version recovery, susceptibility weighted imaging and gradient echo imaging and Diffusion weighted im aging. The patient was then given intravenous contrast and multi planar, T1 fat-saturation images wer e obtained. IV Contrast: 10.5 cc Gadavist FINDINGS: Dilation of the ventricular system including the bilateral lateral ventricles as well as the third ve ntricle. Fourth ventricle is intact and within normal limits for size. No evidence for obstructing ma ss. Diffusion-weighted imaging shows no evidence of restricted diffusion to suggest acute/subacute in farct. Intracranial arterial flow voids are maintained. Midline structures show no abnormality. Scatt ered foci of high T2 signal intensity are seen within the periventricular white matter. The susceptib ility weighted images do not reveal any evidence for micro-hemorrhage. After administration of gadoli nium, no abnormal enhancement is seen. The bone marrow signal is within normal limits. Paranasal sinuses and mastoid air cells: Mild mucosal thickening of the right maxillary sinus. Visual ized orbits: Bilateral aphakia IMPRESSION: 1. Redemonstration of dilation to the ventricles including the lateral ventricles and more asymmetric ally on the right compared to the left. Findings could represent hydrocephalus dilation from cerebral atrophy is also in the differential. Clinical correlation recommended. 2. No evidence of intracranial mass, acute/subacute infarct, or abnormal enhancement. 3. Nonspecific white matter changes, likely related to small vessel ischemic disease
== END | disposition home or self-care (01) ==
LOC: RADMRIMAIN 18:24
PROVIDERS: ATTEND Family Medicine
DX: G91.9 Hydrocephalus, unspecified (principal); R90.82 White matter disease, unspecified
CPT/HCPCS: 70553; A9585

== ENCOUNTER → 2022-09-21 | Outpatient (CLI) | payer MEDICARE ==
--- NOTE | 2022-08-02 15:53 | P.SLEEP ---
History of Present Illness DATE: 08/02/2022 CONSULTATION/NEW PATIENT EVALUATION HISTORY OF PRESENT ILLNESS/SLEEP-WAKE EVALUATION: 57 year old gentleman had been evaluated in the sleep center for obstructive sleep apnea hypopnea syndrome. Patient has history of obstructive sleep apnea for more than 15 years. Results of previous sleep study not available. CPAP unit is very old. SLEEP SCHEDULE: Usually sleep schedule from midnight until 8 AM. FALLING ASLEEP: Sometimes patient has difficulties with the falling asleep, although no TV in bedroom. DURING SLEEP: Patient sleeps on the back and side position with snoring and episodes of stop breathing during the sleep if he is not using CPAP. No history of hypnogogical hallucinations, sleep paralysis, or cataplexy. DURING THE DAY/WAKE STATE: Patient may wake up in the morning tired, feels sleepiness during the day. Parsons sleepiness scale is 10, which indicates sleepiness. Patient occasionally may take naps. PAST MEDICAL HISTORY: Hypertension, deep venous thrombosis, hypothyroidism, acid reflux. PAST SURGICAL HISTORY: None. MEDICATIONS: Eliquis, metoprolol, losartan, Synthroid, Zetia, omeprazole, aspirin. SOCIAL HISTORY: Negative for smoking, alcohol consumption occasional. FAMILY HISTORY: Heart problems. REVIEW OF SYSTEMS: Sleepiness during the day. No fevers. No double vision. No recent chest pain. No shortness of breath. No abdominal pain. No bleeding episodes. No blood in urine. No seizure episodes. PHYSICAL EXAMINATION: GENERAL: A pleasant patient without any distress. VITAL SIGNS: BP 130/80 , HR 78 , RR 16 , weight 262.4 pounds, height 6 foot 0 inches, body mass index 35.5 . HEENT: PERRLA, EOMI. Evaluation of oropharynx showed tongue protrudes midline, low position of soft palate Mallampati 4. NECK: Supple. No JVD. Thyroid is not palpable. 18.5 inches in circumference. LUNGS: Clear to percussion and to auscultation. Good air exchange. No wheezing or rhonchi. HEART: S1, S2 regular. No murmurs, gallops or rubs. ABDOMEN: Soft and nontender. Bowel sounds are present. No organomegaly appreciated. EXTREMITIES: No clubbing or cyanosis. REGIONAL PROPERTY MANAGER: Awake, alert, and oriented x3. Cranial nerves 2 to 7 intact. There is no fasciculation or atrophy noted. No focal deficits observed. ASSESSMENT: 1. Snoring, episodes of stop breathing, obstructive sleep apnea hypopnea syndrome diagnosed 15 years ago results of previous sleep studies not available, low position of soft palate, wide neck, sleepiness Parsons Sleepiness Scale is 10. Obstructive sleep apnea hypopnea syndrome. 2. Obesity BMI 35.5. 3. Hypertension. 4. History of deep venous thrombosis. 5 hypothyroidism. 6 . Acid reflux. PLAN: 1. Polysomnography for evaluation of patient's breathing during sleep. 2. CPAP/BiPAP titration if sleep study confirms obstructive sleep apnea- hypopnea syndrome. 3. Preferable position during sleep on the side. 4. No driving if patient feels any sleepiness. Patient is aware of civil and criminal liability for unsafe driving. 5. Sleep hygiene with regular sleep time for at least 7.5-8 hours. 6. Watching and losing weight. Thank you very much for referring this patient for consultation. Sincerely, Jimmy Monroe MD, PhD, FAASM. Diplomat of [place] [employer], Sleep Medicine Board by [place] [employer] [employer] [facility] [place] [place] Past Medical History Past Medical History: Atrial Fibrillation, Cancer, GERD/Reflux, Hyperlipidemia, Hypertension, Osteoarthritis (OA), Syncope Additional Past Medical History / Comment(s): skin cancer, episode of A-Fib several years ago-no further problems, sinus issues, episode of syncope after getting up too fast, recent adm. for small bowel obstruction & appendix abscess, had IV A/B & now on oral History of Any Multi-Drug Resistant Organisms: None Reported Past Surgical History: Orthopedic Surgery Additional Past Surgical History / Comment(s): vasectomy, removal of skin cancer from face,right rotator cuff repair dec, PICC line & then removal Past Anesthesia/Blood Transfusion Reactions: No Reported Reaction Smoking Status: Never smoker - Past Family History Father Family Medical History: Cancer Mother Family Medical History: Cancer Medications and Allergies Home Medications Medication Instructions Recorded Confirmed Type Aspirin 81 mg PO DAILY 02/10/14 06/13/21 History Metoprolol Tartrate 25 mg PO BID 02/10/14 06/13/21 History Methylphenidate HCl 36 mg PO DAILY 04/25/21 06/13/21 History [Methylphenidate HCl ER] Pramipexole [Mirapex] 1.5 mg PO HS@1900 04/25/21 06/13/21 History Rosuvastatin Calcium [Crestor] 5 mg PO MOWEFR 04/25/21 06/13/21 History lisinopriL [Zestril] 10 mg PO DAILY 04/25/21 06/13/21 History Famotidine [Pepcid] 20 mg PO BID #60 tablet 05/09/21 06/13/21 Rx Amoxicillin/Potassium Clav 1 tab PO Q12HR 06/10/21 06/13/21 History [Augmentin 875-125 Tablet] Tamsulosin [Flomax] 0.4 - 0.8 mg PO HS 06/10/21 06/13/21 History Acetaminophen Tab [Tylenol Tab] 1,000 mg PO Q6HR PRN #30 tablet 06/13/21 Rx Ibuprofen [Motrin] 600 mg PO Q8HR PRN #30 tab 06/13/21 Rx Simethicone [Gas-X] 125 mg PO AC-TID PRN #20 capsule 06/13/21 Rx Allergies Allergy/AdvReac Type Severity Reaction Status Date / Time No Known Allergies Allergy Verified 06/13/21 08:36 Sleep Note - Sleep Note Sleep Note: Temperature: Pulse Rate: Respiratory Rate: Blood Pressure: SpO2: Height: Weight: BMI: Neck Circumference:
--- NOTE | 2022-09-21 16:12 | P.PN ---
Subjective DATE: 09/21/2022 FOLLOW UP VISIT. Patient with obstructive sleep apnea hypopnea syndrome return to sleep center for follow-up visit. Recently patient had sleep study which documented obstructive sleep apnea hypopnea syndrome. Patient was initiated on PAP therapy and today is first visit after treatment was started. Patient was able to use PAP equipment most of the nights. I discuss results of sleep studies with patient in details Patient tried different types of the masks, his preference is nasal pillows. [place] sleepiness scale is 9. I checked information from PAP unit for the months of June. PAP unit pressure 8-14, average 12.6 cm H2O. Usage is 100% and about 50 % for more then 4 hours, average 3.6 hours per night. Leak is 30.3 l/m, which is in acceptable range. Apnea Hypopnea Index is 2.2, which is normal. MEDICATIONS:1. Lisinopril 10 mg once a day 2. Metoprolol 25 mg once a day 3. Famotidine 20 mg once a day 4. Pramipexole 5. Ritalin 36 mg once a day During physical exam: GENERAL: A pleasant patient without any distress. VITAL SIGNS: BP 139/80, HR 89, RR 16 , weight 238.4, temperature 97.5, oxygen saturation at room air 93% . HEENT: PERRLA, EOMI.low position of soft palate, Mallapati 4 . NECK: Supple. No JVD. LUNGS: Clear to percussion and to auscultation. Good air exchange. No wheezing or rhonchi. HEART: S1, S2 regular. ABDOMEN: Soft and nontender. Slightly obese EXTREMITIES: No clubbing or cyanosis. ROLLER CHECKER: Awake, alert, and oriented x3. No focal deficit. Impressions: 1. Obstructive sleep apnea-hypopnea syndrome. Patient demonstrated borderline compliance with treatment, benefiting from treatment. 2. Obesity. 3. Hypertension. 4. History of restless leg symptoms. 5. History of ADHD. 6. Acid reflux. 7. History of prostate cancer by results of pathology after surgery for BPH. 8. Status post appendectomy. Plan: 1. Continue using PAP equipment every night for the whole night. Patient promised to follow recommendations. 2. To change air filter at least 1-2 times per month. 3. PAP unit should stay lower then position of the head. 4. Advised patient to remove all remaining water from humidifier canister daily and make it dry after each usage. Refill canister with fresh distilled water before each usage. 5. Sleep hygiene with regular time in bed for at least 8 hours. 6. Precautions related to driving. No driving if feel any sleepiness. 7. I will maintain prescription for PAP supplies including mask, tube, filters. 8. Follow up visit in 6 months or earlier if patient has any problems. 9. Watching and losing weight. Thank you very much for allowing me to participate in the management of your patient. Jimmy Monroe MD, PhD, FAASM. Diplomat of [place] [employer], Sleep Medicine Board by [place] [employer] [facility] [place]
== END ==
LOC: 3 N SLEEP 15:00
PROVIDERS: ATTEND Internal Medicine
DX: G47.33 Obstructive sleep apnea (adult) (pediatric) (principal); E66.9 Obesity, unspecified; G25.81 Restless legs syndrome; I10 Essential (primary) hypertension; K21.9 Gastro-esophageal reflux disease without esophagitis; F90.9 Attention-deficit hyperactivity disorder, unspecified type; Z85.46 Personal history of malignant neoplasm of prostate; Z79.899 Other long term (current) drug therapy; Z98.890 Other specified postprocedural states; Z99.89 Dependence on other enabling machines and devices
CPT/HCPCS: 99212

== ENCOUNTER 2022-11-14 09:57 | Day surgery (SDC) | payer MEDICARE ==
[2022-11-14 10:51] VITALS: TEMP 97.7
[2022-11-14 14:02] VITALS: RESP 16
[2022-11-14 16:56] VITALS: BP 104/60; PULSE 58
== END 2022-11-14 16:25 | disposition home or self-care (01) ==
LOC: RADPROMAIN 09:57
PROVIDERS: ATTEND Psychiatry & Neurology Neurology
DX: G91.0 Communicating hydrocephalus (principal); I48.91 Unspecified atrial fibrillation; I10 Essential (primary) hypertension; E78.5 Hyperlipidemia, unspecified; G47.33 Obstructive sleep apnea (adult) (pediatric); G25.81 Restless legs syndrome; F32.A Depression, unspecified; Z79.899 Other long term (current) drug therapy
CPT/HCPCS: 62328; J2001

== ENCOUNTER 2023-01-02 19:18 | Outpatient (CLI) | payer MEDICARE ==
--- NOTE | 2023-01-04 17:57 | P.PCN ---
Description of Procedure: POLYSOMNOGRAPHY REPORT PROCEDURE(S)/DATE(S): Polysomnography 01/02/2023 CLINICAL: Patient has been seen in the sleep center for evaluation of obstructive sleep apnea-hypopnea syndrome. Please see my consultation. Sleep study has been done for evaluation of patient breathing during the sleep. PROCEDURE: The standard montage for clinical polysomnography included the electroencephalogram, the electrooculogram, the mentalis surface electromyography and Lead II cardiography. The respiratory battery consisted of measurements of nasal/buccal air flow, pressure transducer measurements from nose, thoracic and/or abdominal effort and intercostal surface electromyography. Video monitoring has been done to check for any parasomnia events. Nocturnal oxyhemoglobin saturations were obtained by finger oximetry. Step-gupta titration with positive airway pressure was utilized to control the respiratory events, if necessary. RESULTS: During the diagnostic sleep study sleep efficiency was slightly decreased to 83.0 %. Latency to sleep onset was extremely short 8 min. Sleep architecture showed stage NI was short 2.2 %, Delta sleep was absent 0 %, REM sleep was slightly decreased to 17.3 %. Respiratory channel showed 173 obstructive apneas, 1 mixed apneas, 1 central apneas, 16 hypopneas with lowest oxygen level 88%. Total apnea hypopnea index was 31.1. Heart rate was in the range between 49 and 62, average 55. EMG showed 67.2 periodic limb movements per hour with 0 micro-arousals per hour. IMPRESSIONS: 1. Severe obstructive sleep apnea hypopnea syndrome. 2. Severe periodic limb movements have been documented, but without significant micro-arousals. 3. Loud snoring have been documented during the sleep study Please see other impressions from consultation PLAN: 1. Patient will restart treatment with AutoPap range over the pressure 6-14 cm of water and should use equipment every night for the whole night. 2. Losing weight program. 3. Sleep hygiene with regular time in bed for at least 7-1/2 hours. 4. No driving if feeling sleepiness. 5. Please check iron profile including ferritin level. Low level of iron may increase the risk for periodic limb movements. 6. I will see patient for follow-up visit to check clinical response on treatment, compliance with treatment and make all necessary adjustments related to mask fitting pressure and humidification. Thank you very much for allowing me to participate in the management of your patient. Sincerely, Jimmy Monroe MD, PhD, FAASM. Diplomat of [place] [employer], Sleep Medicine Board by [place] [employer] Teacher of [facility] [place]
== END 2023-01-03 06:00 | disposition home or self-care (01) ==
LOC: 3 N SLEEP 19:18 → EDSTATUS 19:20 → 3 N SLEEP 01-03 06:00
PROVIDERS: ATTEND Internal Medicine
DX: G47.33 Obstructive sleep apnea (adult) (pediatric) (principal)
CPT/HCPCS: 95810

== ENCOUNTER → 2023-03-22 | Outpatient (CLI) | payer MEDICARE ==
--- NOTE | 2023-03-22 11:53 | P.PN ---
Subjective DATE: 03/22/2023 FOLLOW UP VISIT. Patient with obstructive sleep apnea hypopnea syndrome return to sleep center for follow-up visit. Information from previous visit have been reviewed. Patient is using PAP equipment every night for the whole night, getting PAP supplies in time. The patient does not have significant problems with the mask, PAP unit and humidification. [place] sleepiness scale is/increased to 11. I checked information from PAP unit. PAP unit pressure 8-14, average 10.6 cm H2O. Usage is 97% and 13 % for more then 4 hours, average 2 hours per night. Leak is 25.2 l/m, which is in acceptable range. Apnea Hypopnea Index is 2.5, which is normal. MEDICATIONS:1. Metoprolol 25 mg once a day 2. Lisinopril 10 mg once a day 3. Pramipexole 4. Famotidine 5. Tramadol 6. Trazodone 50 mg once a day During physical exam: GENERAL: A pleasant patient without any distress. VITAL SIGNS: BP 152/76, HR 73, RR 16, weight 238.2, temperature 97.7, oxygen saturation at room air 96 % . HEENT: PERRLA, EOMI.low position of soft palate, Mallapati 4 . NECK: Supple. No JVD. LUNGS: Clear to percussion and to auscultation. Good air exchange. No wheezing or rhonchi. HEART: S1, S2 regular. ABDOMEN: Soft and nontender.[] EXTREMITIES: No clubbing or cyanosis. TOOL SHAPER SET UP OPERATOR: Awake, alert, and oriented x3. No focal deficit. Impressions: 1. Obstructive sleep apnea-hypopnea syndrome. Patient is using CPAP equipment every night, but short time. Normal respiration on CPAP. 2. Hypertension. 3. History of ADHD. 4. Obesity, BMI 35.1. 5. Acid reflux. 6. History of RLS. 7. History of BPH, status post surgical treatment. 8. Prostate cancer by results of biopsy during surgery for BPH. Plan: 1. Continue using PAP equipment every night for the whole night. Patient promised to follow recommendations. 2. To change air filter at least 1-2 times per month. 3. PAP unit should stay lower then position of the head. 4. Advised patient to remove all remaining water from humidifier canister daily and make it dry after each usage. Refill canister with fresh distilled water before each usage. 5. Sleep hygiene with regular time in bed for at least 8 hours. 6. Precautions related to driving. No driving if feel any sleepiness. 7. I will maintain prescription for PAP supplies including mask, tube, filters. 8. Follow up visit in 6 months or earlier if patient has any problems. 9. Watching and losing weight. Thank you very much for allowing me to participate in the management of your patient. Jimmy Monroe MD, PhD, FAASM. Diplomat of [place] [employer], Sleep Medicine Board by [place] [employer] Specialist of [facility] [place]
== END ==
LOC: 3 N SLEEP 11:07
PROVIDERS: ATTEND Internal Medicine
DX: G47.33 Obstructive sleep apnea (adult) (pediatric) (principal); C61 Malignant neoplasm of prostate; E66.9 Obesity, unspecified; G25.81 Restless legs syndrome; I10 Essential (primary) hypertension; K21.9 Gastro-esophageal reflux disease without esophagitis; F90.9 Attention-deficit hyperactivity disorder, unspecified type; N40.0 Benign prostatic hyperplasia without lower urinary tract symptoms; Z68.35 Body mass index [BMI] 35.0-35.9, adult; Z99.89 Dependence on other enabling machines and devices; Z79.82 Long term (current) use of aspirin; Z79.899 Other long term (current) drug therapy
CPT/HCPCS: 99212

== ENCOUNTER 2023-04-27 11:28 | Day surgery (SDC) | payer MEDICARE ==
[2023-04-27] MEDS: LACTATED RINGERS 1,000 ML IV SCH (13:19)
[2023-04-27 13:39] VITALS: RESP 16; TEMP 97.6
[2023-04-27] MEDS ORDERED: PROPOFOL 10 MG/ML 20 ML VIAL IV ONE (13:51)
--- NOTE | 2023-04-27 14:26 | P.PCN ---
Date of Procedure: 04/27/23 Procedure(s) Performed: BRIEF HISTORY: Patient is a 72-year-old pleasant white male scheduled for an elective colonoscopy as a part of screening for colon cancer and family history of colon cancer. Mother was diagnosed with colon cancer at age 60. PROCEDURE PERFORMED: Colonoscopy with snare polypectomy. PREOPERATIVE DIAGNOSIS: Screening for colon cancer/family history of colon cancer. IV sedation per Anesthesia. PROCEDURE: After informed consent was obtained, the patient, was brought into the endoscopy unit. IV sedation was administered by Anesthesia under continuous monitoring. Digital rectal examination was normal. Initially the Olympus CF-160 flexible video colonoscope was then inserted in the rectum, gradually advanced into the cecum without any difficulty. Careful examination was performed as the scope was gradually being withdrawn. Ileocecal valve and the appendiceal orifice were visualized and appeared normal. Prep was excellent. Mucosa of the cecum, appeared normal. In the ascending colon there was a 7 mm polyp that was removed by snare polypectomy. In the hepatic flexure there were 2 polyps measuring 5 mm in size both of which were removed by cold snare polypectomy. ascending colon, transverse colon, descending colon, sigmoid colon, and rectum appeared normal. Retroflexion was performed in the rectum and no lesions were seen. The patient tolerated the procedure well. IMPRESSION: 7 mm ascending colon polyp status post snare polypectomy 5 mm 2 hepatic flexure polyp status post polypectomy Rest of the colon appeared normal RECOMMENDATIONS: Findings of this examination were discussed with the patient as well as his family. He was advised to follow with the biopsy results. Recommend repeat colonoscopy in 5 years because of the family history of colon cancer.
[2023-04-27 15:13] VITALS: BP 120/69; PULSE 54
== END 2023-04-27 15:05 | disposition home or self-care (01) ==
LOC: ORWHC2ENDO 11:28
PROVIDERS: ATTEND Internal Medicine Gastroenterology
DX: Z12.11 Encounter for screening for malignant neoplasm of colon (principal); D12.2 Benign neoplasm of ascending colon; D12.3 Benign neoplasm of transverse colon; I11.0 Hypertensive heart disease with heart failure; I50.9 Heart failure, unspecified; E78.5 Hyperlipidemia, unspecified; I48.91 Unspecified atrial fibrillation; J44.9 Chronic obstructive pulmonary disease, unspecified; G47.33 Obstructive sleep apnea (adult) (pediatric); F98.8 Other specified behavioral and emotional disorders with onset usually occurring in childhood and adolescence; Z79.01 Long term (current) use of anticoagulants; Z79.899 Other long term (current) drug therapy; Z98.890 Other specified postprocedural states; Z80.0 Family history of malignant neoplasm of digestive organs
CPT/HCPCS: 88305; 45385; J2704

== ENCOUNTER → 2023-09-19 | Outpatient (CLI) | payer MEDICARE ==
[2023-09-19 11:58] VITALS: BP 121/63; PULSE 61; RESP 16; TEMP 98.1
--- NOTE | 2023-09-19 12:26 | P.PROGSL ---
Subjective DATE: 09/19/2023 FOLLOW UP VISIT. Patient with obstructive sleep apnea hypopnea syndrome return to sleep center for follow-up visit. Information from previous visit have been reviewed. Patient is using PAP equipment every night for the whole night, getting PAP supplies in time. The patient does not have significant problems with the mask, PAP unit and humidification. [place] sleepiness scale is slightly increased to 11. I checked information from PAP unit. PAP unit pressure 8-14, average 10 cm H2O. Usage is 97% % , but average 2.5 hours per night. Leak is 17.4 l/m, which is in acceptable range. Apnea Hypopnea Index is 0.7, which is normal. MEDICATIONS: Please see below During physical exam: GENERAL: A pleasant patient without any distress. VITAL SIGNS: Please see below, weight 236.4 pounds, which is 2 pounds less than during previous visit. HEENT: PERRLA, EOMI.low position of soft palate, Mallapati 4 . NECK: Supple. No JVD. LUNGS: Clear to percussion and to auscultation. Good air exchange. No wheezing or rhonchi. HEART: S1, S2 regular. ABDOMEN: Soft and nontender. Slightly obese EXTREMITIES: No clubbing or cyanosis. PATENTS EXAMINER: Awake, alert, and oriented x3. No focal deficit. Impressions: 1. Obstructive sleep apnea-hypopnea syndrome. Patient is using CPAP equipment every night, but not for the whole night. 2. Obesity, BMI 35.3. 3. Hypertension. 4. History of ADHD. 5. Acid reflux. 6. History of restless leg symptoms. 7. History of BPH, status post surgical treatment. 8. Prostate cancer by results of biopsy during surgery for BPH. Plan: 1. Continue using PAP equipment every night for the whole night. Patient promised to follow recommendations. 2. To change air filter at least 1-2 times per month. 3. PAP unit should stay lower then position of the head. 4. Advised patient to remove all remaining water from humidifier canister daily and make it dry after each usage. Refill canister with fresh distilled water before each usage. 5. Sleep hygiene with regular time in bed for at least 8 hours. 6. Precautions related to driving. No driving if feel any sleepiness. 7. I will maintain prescription for PAP supplies including mask, tube, filters. 8. Watching and losing weight. 9. Follow up visit in 6 months or earlier if patient has any problems. Thank you very much for allowing me to participate in the management of your patient. Jimmy Monroe MD, PhD, FAASM. Diplomat of [place] [employer], Sleep Medicine Board by [place] [employer] Sales Representative [employer] [facility] [place] Objective - Vital Signs Vital Signs: Vital Signs Temp 98.1 F 09/19/23 11:57 Pulse 61 09/19/23 11:57 Resp 16 09/19/23 11:57 BP 121/63 09/19/23 11:57 Pulse Ox 95 09/19/23 11:57 FiO2 Intake & Output 09/18/23 09/19/23 09/19/23 18:59 06:59 18:59 Weight 107.048 kg Home Medications: Home Medications Medication Instructions Recorded Confirmed Type Metoprolol Tartrate 25 mg PO BID 02/10/14 09/19/23 History Pramipexole [Mirapex] 1.5 mg PO HS@1900 04/25/21 09/19/23 History lisinopriL [Zestril] 10 mg PO DAILY 04/25/21 09/19/23 History Famotidine [Pepcid] 20 mg PO BID #60 tablet 05/09/21 09/19/23 Rx Furosemide [Lasix] 20 mg PO DAILY 10/31/22 09/19/23 History Acetaminophen Tab [Tylenol Tab] 500 mg PO Q6HR PRN 04/24/23 09/19/23 History traZODone HCL [Desyrel] 50 mg PO HS 09/19/23 09/19/23 History
== END ==
LOC: 3 N SLEEP 11:28
PROVIDERS: ATTEND Internal Medicine
DX: G47.33 Obstructive sleep apnea (adult) (pediatric) (principal); E66.9 Obesity, unspecified; I10 Essential (primary) hypertension; K21.9 Gastro-esophageal reflux disease without esophagitis; C61 Malignant neoplasm of prostate; Z87.438 Personal history of other diseases of male genital organs; Z87.39 Personal history of other diseases of the musculoskeletal system and connective tissue; Z86.59 Personal history of other mental and behavioral disorders; Z99.89 Dependence on other enabling machines and devices; Z98.890 Other specified postprocedural states; Z79.899 Other long term (current) drug therapy; Z68.35 Body mass index [BMI] 35.0-35.9, adult
CPT/HCPCS: 99212

== ENCOUNTER → 2023-12-19 | Outpatient (CLI) | payer MEDICARE ==
--- NOTE | 2023-12-19 10:00 | CT ---
EXAMINATION TYPE: CT chest wo con CT DLP: 505.8 mGycm, Automated exposure control for dose reduction was used. DATE OF EXAM: 12/19/2023 9:12 AM COMPARISON: CTA chest 04/05/2019 CLINICAL INDICATION:Male, 73 years old with history of R05.3 CHRONIC COUGH; PHH, chronic cough TECHNIQUE: Multiple axial images were obtained through the chest without IV contrast. Lack of IV or o ral contrast limits evaluation of solid and hollow organ viscera. . Coronal and sagittal reformats re viewed. FINDINGS: LUNGS/ PLEURA: No pleural effusion pneumothorax. Stable right apical 3 mm pulmonary nodule (series 4 image 14). Stable medial right upper lobe posterior 6 mm nodule (series 4, image 28). New 5 mm right lower lobe pulmonary nodule (series 4, image 40). Stable medial right lower lobe 3 mm pulmonary nodul e (series 4, image 45). Scattered subtle right basilar patchy peripheral reticular opacities. AIRWAY: Patent and unremarkable.. HEART: The heart is mildly increased in size.. No pericardial effusion. Small coronary artery calcifi cations. MEDIASTINUM: No gross evidence of adenopathy. VASCULATURE: No aortic aneurysm. MUSCULOSKELETAL: No acute osseous abnormalities . Right shoulder arthropathy. Degenerative changes of the visualized cervical spine. SOFT TISSUES/LYMPH NODES: Unremarkable. LOWER NECK: No significant findings. UPPER ABDOMEN: Anterior ventral epigastric region fat filled hernia with defect measuring 1.3 cm. IMPRESSION: 1. Subtle patchy right basilar peripheral reticular groundglass opacities concerning for developing a typical pneumonia versus chronic interstitial disease. 2. Few stable pulmonary nodules with new right lower lobe 5 mm nodule. In a low-risk patient, no foll ow-up is recommended. In a high-risk patient, consider optional CT chest at 12 months. [facility], , 12/19/2023 9:57 AM
== END | disposition home or self-care (01) ==
LOC: RADCTMAIN 08:56
PROVIDERS: ATTEND Family Medicine
CPT/HCPCS: 71250

== ENCOUNTER → 2024-03-06 | Outpatient (CLI) | payer MEDICARE ==
--- NOTE | 2024-03-06 10:32 | CT ---
EXAMINATION TYPE: CT chest wo con DATE OF EXAM: 03/06/2024 COMPARISON: 12/19/2023 CLINICAL INDICATION: Male, 73 years old with history of J84.9 INTERSTITIAL PULMONARY DISEASE, UNSPECI FIED; PHH, High resolution, interstitial pulmonary disease, lung nodules TECHNIQUE: CT scan of the thorax is performed without IV contrast. CT DLP: 1552.[address] CTDI: mGy Automated exposure control for dose reduction was used. FINDINGS: There are 2 right lower lobe pulmonary nodules one measuring approximately 5 to 6 mm and the other me asuring 7 to 8 mm.There is a 2.3 cm subpleural parenchymal density in the right middle lobe medially which could represent round atelectasis There is no airspace consolidation. There is no groundglass opacity, bronchiectasis or honeycombing. There is no pleural effusion or pneumothorax. The great vessels chest are normal. There is no mediastinal, hilar or axillary adenopathy. There is moderate cardiomegaly. Limited scans through the upper abdomen reveals no gross abnormality. No focal osseous lesions are seen. IMPRESSION: 1. No definite interstitial lung disease. 2. Right middle lobe subpleural parenchymal density and 2 right lower lobe nodules which have a low s uspicion for malignancy but malignancy is not excluded. 3 month follow-up CT thorax is to confirm sta bility. Follow-up recommendations for incidental pulmonary nodules are per [employer]?s [employer] or [employer]. [facility], , 03/06/2024 10:30 AM
== END | disposition home or self-care (01) ==
LOC: RADCTMAIN 09:40
PROVIDERS: ATTEND Internal Medicine Critical Care Medicine
DX: J84.9 Interstitial pulmonary disease, unspecified (principal); R91.8 Other nonspecific abnormal finding of lung field; J98.4 Other disorders of lung
CPT/HCPCS: 71250

== ENCOUNTER → 2024-03-26 | Outpatient (CLI) | payer MEDICARE ==
[2024-03-26 13:33] VITALS: BP 142/79; PULSE 83; RESP 16; TEMP 98.1
--- NOTE | 2024-03-26 13:55 | P.PROGSL ---
Subjective DATE: 03/26/2024 FOLLOW UP VISIT. Patient with obstructive sleep apnea hypopnea syndrome return to sleep center for follow-up visit. Information from previous visit have been reviewed. Patient feels that pressure is not enough for him when he is starting to use CPAP equipment. [place] sleepiness scale is 10, which is borderline. I checked information from PAP unit. PAP unit pressure 8-14, average 10.0 cm H2O. Usage is 80% for more then 4 hours, average 3.1 hours per night. Leak is 10.4 l/m, which is in acceptable range. Apnea Hypopnea Index is 1.0, which is normal. MEDICATIONS have been reviewed, please see below. During physical exam: GENERAL: A pleasant patient without any distress. VITAL SIGNS: Please see below, weight is 231.6 lbs. HEENT: PERRLA, EOMI.low position of soft palate, Mallapati 4 . NECK: Supple. No JVD. LUNGS: Clear to percussion and to auscultation. Good air exchange. No wheezing or rhonchi. HEART: S1, S2 regular. ABDOMEN: Soft and nontender.[] EXTREMITIES: No clubbing or cyanosis. MAKE UP GIRL: Awake, alert, and oriented x3. No focal deficit. Impressions: 1. Obstructive sleep apnea-hypopnea syndrome. Normal respiration on CPAP. Patient feels that pressure is not enough when he started to use CPAP equipment. 2. Mild obesity, BMI 35.7, patient lost 5 pounds comparing with previous visit. 3. Hypertension. 4. Acid reflux. 5. History of ADHD. 6. History of restless leg symptoms. 7. Prostate cancer by results of biopsy during surgery for BPH. 8. History of BPH, status post surgical treatment. I changed starting pressure during a ramp up to 7 cm of water. Plan: 1. Continue using PAP equipment every night for the whole night. 2. Sleep hygiene with regular time in bed for at least 7.5-8 hours 3. PAP unit should stay lower then position of the head. 4. Advised patient to remove all remaining water from humidifier canister daily and make it dry after each usage. Refill canister with fresh distilled water before each usage. 5. Watching weight. 6. Precautions related to driving. No driving if feel any sleepiness. 7. I will maintain prescription for PAP supplies including mask, tube, filters. 8. Follow up visit in 8 months or earlier if patient has any problems. Thank you very much for allowing me to participate in the management of your patient. Jimmy Monroe MD, PhD, FAASM. Diplomat of [place] [employer], Sleep Medicine Board by [place] [employer] Lead Javascript Engineer of [facility] [place] Objective - Vital Signs Vital Signs: Vital Signs Temp 98.1 F 03/26/24 13:29 Pulse 83 03/26/24 13:29 Resp 16 03/26/24 13:29 BP 142/79 03/26/24 13:29 Pulse Ox 95 03/26/24 13:29 FiO2 Intake & Output 03/25/24 03/26/24 03/26/24 18:59 06:59 18:59 Weight 104.95 kg Home Medications: Home Medications Medication Instructions Recorded Confirmed Type Metoprolol Tartrate 25 mg PO BID 02/10/14 09/19/23 History Pramipexole [Mirapex] 1.5 mg PO HS@1900 04/25/21 09/19/23 History lisinopriL [Zestril] 10 mg PO DAILY 04/25/21 09/19/23 History Famotidine [Pepcid] 20 mg PO BID #60 tablet 05/09/21 09/19/23 Rx Furosemide [Lasix] 20 mg PO DAILY 10/31/22 09/19/23 History Acetaminophen Tab [Tylenol Tab] 500 mg PO Q6HR PRN 04/24/23 09/19/23 History traZODone HCL [Desyrel] 50 mg PO HS 09/19/23 09/19/23 History
== END ==
LOC: 3 N SLEEP 13:11
PROVIDERS: ATTEND Internal Medicine
DX: G47.33 Obstructive sleep apnea (adult) (pediatric) (principal); E66.9 Obesity, unspecified; I10 Essential (primary) hypertension; K21.9 Gastro-esophageal reflux disease without esophagitis; F90.9 Attention-deficit hyperactivity disorder, unspecified type; G25.81 Restless legs syndrome; Z68.35 Body mass index [BMI] 35.0-35.9, adult; Z87.438 Personal history of other diseases of male genital organs; Z98.890 Other specified postprocedural states
CPT/HCPCS: 99212

== ENCOUNTER → 2024-07-17 | Outpatient (CLI) | payer MEDICARE ==
--- NOTE | 2024-07-17 10:02 | XR ---
EXAMINATION TYPE: XR cervical spine 7 views w flex/ext, XR lumbar spine 3V DATE OF EXAM: 07/17/2024 7:55 AM COMPARISON: e CLINICAL INDICATMale M73 yearsyears old with [id number] HYPERREFLEXIALEPHH; PHH, pain TECHNIQUE: The cervical spine was imaged in frontal, lateral, odontoid and bilateral oblique. FINDINGS: Cervical spine: No predental space widening or prevertebral soft tissue swelling. Moderate to severe disc/endplate de generative change throughout especially mid to lower cervical spine. Moderately advanced hypertrophic facet and uncovertebral joint arthropathy is also present throughout. There is straightening of the normal cervical lordosis with degenerative grade 1 anterolisthesis C7-T1. No change on flexion or ext ension views. Variable moderate to severe bony neural foraminal narrowing throughout the mid cervical spine on both sides. Lumbar spine: 5 lumbar type vertebral bodies. Advanced hypertrophic facet arthropathy lower lumbar spine. This like ly accounts for the degenerative grade 1 anterolisthesis at both L4-L5 and L5-S1. Moderate degenerati ve disc disease L5-S1 and [id number] at L4-L5. Otherwise, vertebral body heights are preserved. IMPRESSION: Cervical spine: 1. Moderate to advanced multilevel spondylotic change. 2. Fixed degenerative grade 1 anterolisthesis C7-T1. No dynamic subluxations seen on flexion-extensio n. 3. Straightening of the normal cervical lordosis could be positional or due to muscle spasm. 4. Variable moderate to severe bony neural foraminal narrowing on both sides throughout the mid cervi ofe spine. Lumbar spine: 5. Degenerative grade 1 anterolisthesis at both L4-L5 and L5-S1 likely secondary to hypertrophic face t arthropathy. 6. Moderate degenerative disc disease L5-S1 and [id number] at L4-L5. 7. No vertebral compression collapse. [facility], , 07/17/2024 9:59 AM
[2024-07-17 10:34] LABS: Appearance,Urine Clear (Clear); Bilirubin,Urine Negative (Negative); Blood,Urine Negative (Negative); Color,Urine Yellow (Yellow); Ketones,Urine Negative (Negative); Nitrite,Urine Negative (Negative); Specific Gravity,Urine 1.018 (1.001-1.030)
[2024-07-17 10:39] LABS: Bacteria,Urine None Seen (None Seen)
[2024-07-17 10:44] LABS: Basophils # (A) 0.03 X 10*3/uL (0.00-0.10); Basophils % (A) 0.6 %; Eosinophils # (A) 0.11 X 10*3/uL (0.04-0.35); Eosinophils % (A) 2.3 %; HCT 41.2 % (39.6-50.0); HGB 13.6 g/dL (13.0-17.0); Lymphocytes # (A) 1.49 X 10*3/uL (0.90-5.00); Lymphocytes % (A) 30.8 %; MCH 30.2 pg (27.0-32.0); MCV 91.6 FL (80.0-97.0); Mean Platelet Volume 9.7 FL (9.5-12.2); Monocytes # (A) 0.32 X 10*3/uL (0.20-1.00); Monocytes % (A) 6.6 %; NRBC Per 100 WBC 0 X 10*3/uL (0.00-0.01); Neutrophils # (A) 2.87 X 10*3/uL (1.80-7.70); Neutrophils % (A) 59.5 %; Platelet Count 246 X 10*3/uL (140-440); RDW 12.9 % (11.5-14.5); WBC 4.83 X 10*3/uL (4.50-10.00)
[2024-07-17 10:46] LABS: NT-Pro-B-Type Natriuretic Pept 52 pg/mL (0-450)
[2024-07-17 11:07] LABS: ALT 25 U/L (10-49); AST 18 U/L (14-35); Albumin 4.2 g/dL (3.8-4.9); Albumin/Globulin Ratio 1.83 Ratio (1.60-3.17); Alkaline Phosphatase 40 U/L (41-126); Blood Urea Nitrogen 19.8 mg/dL (9.0-27.0); Calcium 9.3 mg/dL (8.7-10.3); Carbon Dioxide 23.6 mmol/L (21.6-31.8); Chloride 102 mmol/L (96-109); Creatine Kinase 62 U/L (35-257); Globulin 2.3 g/dL (1.6-3.3); Glucose 101 mg/dL (70-110); LDL Cholesterol,Calculated 154.7 mg/dL (0.0-131.0); Magnesium 2.3 mg/dL (1.5-2.4); Potassium 4.1 mmol/L (3.5-5.5); Prostate Specific Antigen 1.79 ng/mL (0.000-6.500); Sodium 137 mmol/L (135-145); Total Bilirubin 0.5 mg/dL (0.3-1.2); Total Protein 6.5 g/dL (6.2-8.2); Uric Acid 5.9 mg/dL (3.7-8.7)
[2024-07-17 11:20] LABS: Erythrocyte Sedimentation Rate 15 mm/Hr (0-20)
== END | disposition home or self-care (01) ==
LOC: LABWHC1 07:08
PROVIDERS: ATTEND Internal Medicine
DX: I10 Essential (primary) hypertension (principal); I48.91 Unspecified atrial fibrillation; E78.2 Mixed hyperlipidemia; G47.33 Obstructive sleep apnea (adult) (pediatric); C61 Malignant neoplasm of prostate; R29.2 Abnormal reflex; R41.89 Other symptoms and signs involving cognitive functions and awareness
CPT/HCPCS: 36415; 72052; 72100; 80053; 80061; 81001; 82306; 82550; 82607; 82746; 83036; 83735; 83880; 84153; 84443; 84550; 85025; 85652; 86141; 86780

== ENCOUNTER → 2024-07-24 | Outpatient (CLI) | payer MEDICARE ==
[2024-07-24 12:06] VITALS: BP 127/75; PULSE 62; RESP 12; TEMP 97.9
--- NOTE | 2024-07-24 12:19 | P.PROGSL ---
Subjective DATE: 07/24/2024 FOLLOW UP VISIT. Patient with obstructive sleep apnea hypopnea syndrome return to sleep center for follow-up visit. Information from previous visit have been reviewed. Patient is using PAP equipment every night for the whole night, getting PAP supplies in time. The patient does not have significant problems with the mask, PAP unit and humidification. Catarina sleepiness scale is increased to 17. I checked information from PAP unit. PAP unit pressure 8-14, average 10.4 cm H2O. Usage is 90% for more then 4 hours, average 3.6 hours per night. Leak is 16 l/m, which is in acceptable range. Apnea Hypopnea Index is 0.8, which is normal. MEDICATIONS have been reviewed, please see below. During physical exam: GENERAL: A pleasant patient without any distress. VITAL SIGNS: Please see below, weight is 228 lbs. HEENT: PERRLA, EOMI.low position of soft palate, Mallapati 4 . NECK: Supple. No JVD. LUNGS: Clear to percussion and to auscultation. Good air exchange. No wheezing or rhonchi. HEART: S1, S2 regular. ABDOMEN: Soft and nontender. Obese EXTREMITIES: No clubbing or cyanosis. TUBING TESTER: Awake, alert, and oriented x3. No focal deficit. Impressions: 1. Obstructive sleep apnea-hypopnea syndrome. Patient demonstrated great compliance with treatment, benefiting from treatment. 2. Obesity, BMI 35.1, patient lost 3 pounds comparing with previous visit. 3. Hypertension. 4. Acid reflux. 5. History of ADHD. 6. History of restless leg symptoms. 7. Status post surgical treatment. 8. Prostate cancer cells was seen on biopsy during surgery for BPH. Plan: 1. Continue using PAP equipment every night for the whole night. 2. Sleep hygiene with regular time in bed for at least 7.5-8 hours 3. PAP unit should stay lower then position of the head. 4. Advised patient to remove all remaining water from humidifier canister daily and make it dry after each usage. Refill canister with fresh distilled water be fore each usage. 5. Watching and losing weight. 6. Precautions related to driving. No driving if feel any sleepiness. 7. I will maintain prescription for PAP supplies including mask, tube, filters. 8. Follow up visit in 8 months or earlier if patient has any problems. Thank you very much for allowing me to participate in the management of your patient. Jimmy Monroe MD, PhD, FAASM. Diplomat of [employer], Sleep Medicine Board by [employer] [facility] [place] Objective - Vital Signs Vital Signs: Vital Signs Temp 97.9 F 07/24/24 12:05 Pulse 62 07/24/24 12:05 Resp 12 07/24/24 12:05 BP 127/75 07/24/24 12:05 Pulse Ox 97 07/24/24 12:05 FiO2 Intake & Output 07/23/24 07/24/24 07/24/24 18:59 06:59 18:59 Weight 103.419 kg Home Medications: Home Medications Medication Instructions Recorded Confirmed Type Metoprolol Tartrate 25 mg PO BID 02/10/14 09/19/23 History Pramipexole [Mirapex] 1.5 mg PO HS@1900 04/25/21 09/19/23 History lisinopriL [Zestril] 10 mg PO DAILY 04/25/21 09/19/23 History Famotidine [Pepcid] 20 mg PO BID #60 tablet 05/09/21 09/19/23 Rx Furosemide [Lasix] 20 mg PO DAILY 10/31/22 09/19/23 History Acetaminophen Tab [Tylenol Tab] 500 mg PO Q6HR PRN 04/24/23 09/19/23 History traZODone HCL [Desyrel] 50 mg PO HS 09/19/23 09/19/23 History
== END ==
LOC: 3 N SLEEP 11:40
PROVIDERS: ATTEND Internal Medicine
DX: G47.33 Obstructive sleep apnea (adult) (pediatric) (principal); E66.9 Obesity, unspecified; Z68.35 Body mass index [BMI] 35.0-35.9, adult; I10 Essential (primary) hypertension; K21.9 Gastro-esophageal reflux disease without esophagitis; N40.0 Benign prostatic hyperplasia without lower urinary tract symptoms; Z86.59 Personal history of other mental and behavioral disorders; Z86.69 Personal history of other diseases of the nervous system and sense organs; Z98.890 Other specified postprocedural states; Z99.89 Dependence on other enabling machines and devices
CPT/HCPCS: 99212

== ENCOUNTER → 2024-08-09 | Outpatient (CLI) | payer MEDICARE ==
--- NOTE | 2024-08-09 16:31 | MR ---
EXAMINATION TYPE: MR cspine/lspine wo/w con DATE OF EXAM: 08/09/2024 10:39 AM COMPARISON: None. CLINICAL INDICATION: Male, 73 years old with history of M51.369, M50.30, Neck pain, jamir leg and hip p ain TECHNIQUE: Multiplanar multiecho imaging on a 3.0 Sola magnet is performed through the cervical spin e. IV Contrast: 10 mL Gadobutrol (None, if empty) FINDINGS: The craniovertebral junction is normal. Vertebral body alignment is normal. C7-T1: No focal disc herniation or significant disc bulge is evident. No spinal canal stenosis or n eural foraminal stenosis is present. C6-7: No focal disc herniation or significant disc bulge is evident. No spinal canal stenosis or sal ral foraminal stenosis is present. C5-6: Broad-based disc bulge may be slightly greater to the right paracentral region. This is mild an terior thecal sac compression. No cord contact or spinal canal stenosis is present. Neural foramen ar e patent. C4-5: Endplate changes and mild disc bulge has mild anterior thecal sac compression. No spinal canal stenosis present. Uncovertebral joint hypertrophy contributing to bilateral foraminal narrowing more severe on the right. C3-4: Broad-based disc bulge is present with anterior thecal sac flattening. No AP spinal canal steno sis. Bilateral foraminal narrowing is present. C2-3: No focal disc herniation or significant disc bulge is evident. No spinal canal stenosis or sal ral foraminal stenosis is present. Diffuse loss of disc height is through the cervical spine. Disc desiccation is present. A subtle grad e 1 C7-T1 anterolisthesis may be present. No abnormal enhancement is evident. Facet changes are noted at C6-7 C5-6 IMPRESSION: 1. Multilevel degenerative disc changes with mild disc bulging and anterior thecal sac compression ap pears greatest at the C5-6 level slightly greater in the right paracentral region. No cord contact ev ident. 2. Minimal grade 1 spondylolisthesis of C7 anteriorly on T1 is present. EXAMINATION TYPE: MR cspine/lspine wo/w con DATE OF EXAM: 08/09/2024 10:39 AM COMPARISON: None. CLINICAL INDICATION: Male, 73 years old with history of M51.369, M50.30, Neck pain, jamir leg and hip p ain TECHNIQUE: Multiplanar, multisequence images of the lumbar spine were acquired. IV Contrast: 10 mL Gadobutrol (None, if empty) FINDINGS: Cord ends at the T12-L1. Minimal grade 1 spondylolisthesis of L4 anteriorly on L5 is prese nt. L5-S1: No focal disc herniation or significant disc bulge. No spinal canal stenosis. Neural foramen are patent. Facet hypertrophy is present. L4-L5: Disc uncovering is present has mild anterior thecal sac flattening. Subligamentous disc extens ion posterior to L4 is evident. Facet hypertrophy and ligamentum flavum laxity is present with mild p osterior lateral sac compression. No AP spinal canal stenosis is present. Neural foramen are patent L3-L4: Facet hypertrophy is present greater on the right. Ligamentum flavum laxity is present. This h as some mild posterior lateral thecal sac compression. No AP spinal canal stenosis is present. Neural foramen are patent L2-L3: No focal disc herniation or significant disc bulge. No spinal canal stenosis. Neural foramen are patent. L1-L2: No focal disc herniation or significant disc bulge. No spinal canal stenosis. Neural foramen are patent. T12-L1: No focal disc herniation or significant disc bulge. No spinal canal stenosis. Neural forame n are patent. No abnormal enhancement is evident. There is degenerative disc changes and vacuum phenomenon L4-5 and L5-S1. IMPRESSION: 1. Minimal grade 1 spondylolisthesis of L4 anteriorly on L5. 2. Ligamentum flavum laxity and facet hypertrophy present L3-4 L4-5 with posterior lateral thecal sac compression. No stenosis present. [facility], , 08/09/2024 4:29 PM
== END | disposition home or self-care (01) ==
LOC: RADMRIMAIN 09:19
PROVIDERS: ATTEND Internal Medicine
DX: M51.369 Other intervertebral disc degeneration, lumbar region without mention of lumbar back pain or lower extremity pain (principal); M43.16 Spondylolisthesis, lumbar region; M47.812 Spondylosis without myelopathy or radiculopathy, cervical region; M50.321 Other cervical disc degeneration at C4-C5 level
CPT/HCPCS: 72156; 72158; A9585

== ENCOUNTER → 2024-09-29 | Outpatient (CLI) | payer MEDICARE | END | disposition home or self-care (01) | LOC: LABWHC1 09:58 | PROVIDERS: ATTEND Psychiatry & Neurology Neurology | DX: F03.90 Unspecified dementia, unspecified severity, without behavioral disturbance, psychotic disturbance, mood disturbance, and anxiety (principal) | CPT/HCPCS: 36415 ==